=== PATIENT | female | born 1930 | race African-American/Black ===

== ENCOUNTER 2018-11-19 06:30 | Day surgery (SDC) | payer OTHER, MEDICARE ==
[2018-11-14 10:46] LABS: Absolute Lymphocytes (CBC) 1.7 K/uL (0.7-4.9); Absolute Monocytes 0.4 K/uL (0.1-1.3); Absolute Neutrophil 2.8 K/uL (1.8-8.0); Basophils % 1.1 % (0-1.3); Eosinophils % 4.8 % (0-4.4); Hematocrit 38.2 % (36.0-45.0); Lymphocytes % 32.7 % (15.3-44.8); MPV 8.4 fL (7.6-11.3); Monocytes % 7.5 % (3.3-12.3); RBC Red Blood Cell Count 4.63 M/uL (3.86-4.86)
[2018-11-14 10:50] LABS: Protime INR 1.08
[2018-11-14 10:59] LABS: Potassium 4.2 mmol/L (3.5-5.1)
--- NOTE | 2018-11-14 11:51 | EKG ---
Test Date: 2018-11-14 Test Time: 10:43:39 [employer]: NOE MEASUREMENT RESULTS: Intervals: Rate: 51 MN: 178 QRSD: 110 QT: 466 QTc: 429 [place]: P: 44 MN: 178 QRS: -17 T: 0 INTERPRETIVE STATEMENTS: Sinus bradycardia with sinus arrhythmia Minimal voltage criteria for LVH, may be normal variant Borderline ECG Compared to ECG 12/25/2017 06:45:35 No significant changes Electronically Signed On 11-14-18 11:51:07 [employer]ENIOR INFORMATION DEVELOPER by Ebenezer Pritchett
--- OUTSIDE RECORDS SUMMARY | 2018-11-19 06:38 | XMS REPORT | Clinical Summary ---
:1930 Author Organization [facility] Address [address] [place] [address] Care Team Providers Name Role Phone Joey Melendez MD Primary Care Provider Allergies Active Allergy Reactions Severity Noted Date Comments Codeine GI Intolerance Medications Medication Sig Dispensed Refills Start End Status Date Date gabapentin Take 1 capsule 90 capsule 08/20/ Active (NEURONTIN) 100 mg (100 mg total) 2018 capsule by mouth 3 (three) times a day. ondansetron (ZOFRAN) Infuse 2 mL (4 20 mL 0 Active 4 mg/2 mL injection mg total) into a 018 venous catheter every 8 (eight) hours as needed for nausea or vomiting. metoprolol succinate Take 1 tablet 30 tablet 08/21/ Active XL (TOPROL-XL) 50 mg (50 mg total) by 2018 24 hr tablet mouth daily. amLODIPine (NORVASC) Take 1 tablet 30 tablet 08/21/ Active 10 mg tablet (10 mg total) by 2018 mouth daily. donepezil (ARICEPT) 5 Take 1 tablet (5 30 tablet 08/20/ Active MG tablet mg total) by 2018 mouth nightly. glucagon 1 mg/mL Inject 1 mg into 0 Active recon soln the shoulder, 018 thigh, or buttocks every 15 (fifteen) minutes as needed (if no access and low blood sugar). heparin Inject 1 mL 0 Active sodium,porcine (5,000 Units 018 (HEPARIN, PORCINE,) total) under the 5,000 unit/mL skin every 12 injection (twelve) hours. insulin lispro Inject 0-5 Units 10 mL 12 Active (HumaLOG) 100 unit/mL under the skin 3 2018 injection (three) times a day with meals. dextrose 10 % Infuse 40 mL/hr 500 mL 0 Active infusion into a venous 018 catheter continuously as needed (bedside glucose LESS than 70 mg/dL). dextrose 50% syringe Infuse 25 mL 0 Active (12.5 g total) 018 into a venous catheter every 20 (twenty) minutes as needed (If blood glucose is between 41-69 mg/dL). dextrose 50% syringe Infuse 50 mL (25 0 Active g total) into a 018 venous catheter every 20 (twenty) minutes as needed (If blood glucose is 40 mg/dL or LESS). levothyroxine Take 1 tablet 30 tablet Active (SYNTHROID, LEVOXYL) (75 mcg total) 2018 75 mcg tablet by mouth daily. pantoprazole Take 1 tablet 0 Active (PROTONIX) 40 MG EC (40 mg total) by 018 tablet mouth daily. furosemide (LASIX) 20 Take 1 tablet 30 tablet 08/21/ Active mg tablet (20 mg total) by 018 2018 mouth daily. ezetimibe (ZETIA) 10 Take 1 tablet 30 tablet 08/20/ Active mg tablet (10 mg total) by 018 2018 mouth nightly. magnesium hydroxide Take 30 mL by 0 Active 400 mg/5 mL mouth 2 (two) 018 suspension times a day as needed (constipation). clopidogrel (PLAVIX) clopidogrel 75 0 Discontinued 75 mg tablet mg tablet 2017 furosemide (LASIX) 20 furosemide 20 mg 0 08/20/ Discontinued mg tablet tablet 2018 gabapentin gabapentin 100 0 Discontinued (NEURONTIN) 100 mg mg capsule 2018 capsule levothyroxine levothyroxine 75 0 Discontinued (SYNTHROID, LEVOXYL) mcg tablet 2018 75 mcg tablet metoprolol succinate metoprolol 0 Discontinued XL (TOPROL-XL) 50 mg succinate ER 50 2017 24 hr tablet mg tablet,extended release 24 hr pantoprazole pantoprazole 40 0 Discontinued (PROTONIX) 40 MG EC mg 2018 tablet tablet,delayed release traMADol (ULTRAM) 50 tramadol 50 mg tablet 0 08/20/ Discontinued mg tablet Take 1 tablet every 8 hours by oral route for 20 days. 2018 ezetimibe (ZETIA) 10 Zetia 10 mg 0 08/20/ Discontinued mg tablet tablet 2018 aspirin (ECOTRIN) 81 Take 81 mg by 0 08/20/ Discontinued MG enteric coated mouth daily. 2018 tablet amLODIPine (NORVASC) Take 10 mg by 0 08/20/ Discontinued 10 mg tablet mouth daily. 2018 donepezil (ARICEPT) 5 Take 5 mg by 0 08/20/ Discontinued MG tablet mouth nightly. 2018 mirtazapine (REMERON) Take 15 mg by 0 08/20/ Discontinued 15 MG tablet mouth nightly. 2018 mirtazapine (REMERON) Take 1 tablet 30 tablet 0 09/19/ 15 MG tablet (15 mg total) by 2017 mouth nightly for 30 days. acetaminophen Take 2 tablets 0 (TYLENOL) 325 MG (650 mg total) 2017 tablet by mouth every 6 (six) hours as needed for fever (Temperature greater than 101 F) for up to 30 days. acetaminophen Take 2 tablets 240 tablet 0 (TYLENOL) 325 MG (650 mg total) 2017 tablet by mouth 4 (four) times a day for 30 days. traMADol (ULTRAM) 50 Take 1 tablet 0 mg tablet (50 mg total) by 2017 mouth every 8 (eight) hours as needed for moderate pain for up to 30 days. ondansetron ODT Take 1 tablet (4 0 (ZOFRAN-ODT) 4 MG mg total) by 2017 disintegrating tablet mouth every 8 (eight) hours as needed for nausea or vomiting for up to 30 days. methylPREDNISolone follow package 21 tablet 0 08/25/ (MEDROL DOSEPAK) 4 mg directions 2017 tablet bisacodyl (DULCOLAX) Take 1 tablet (5 30 tablet 0 09/19/ 5 mg EC tablet mg total) by 2017 mouth daily as needed for constipation for up to 30 days. cyclobenzaprine Take 1 tablet (5 90 tablet 0 09/19/ (FLEXERIL) 5 mg mg total) by 2017 tablet mouth 3 (three) times a day for 30 days. HYDROcodone-acetamino Take 2 tablets 0 09/04/ phen (NORCO) 10-325 by mouth every 6 2017 mg per tablet (six) hours for 15 days. Max Daily Amount: 8 tablets polyethylene glycol Take 17 g by 60 packet 0 09/19/ (MIRALAX) 17 gram mouth 2 (two) 2017 packet times a day for 30 days. bisacodyl (DULCOLAX) Insert 1 30 suppository 0 09/19/ 10 mg suppository suppository (10 2017 mg total) into the rectum daily for 30 days. Active Problems Problem Noted Date Cervical spondylosis with myelopathy 08/15/2018 Encounters Date Type Specialty Care Team Description 09/16/2018 Office Visit Neurosurgery Santiago Bhatia Cervical spondylosis with myelopathy (Primary Dx) 08/15/2018 Surgery General Surgery Santiago Bhatia CERVICAL LAMINECTOMY CERVICAL 3 - CERVICAL 7 08/15/2018 Anesthesia Event General Surgery Kylah Marquez, ERNST 08/15/2018 - Hospital Encounter Neurosurgery Santiago Bhatia Cervical 08/20/2018 spondylosis with myelopathy 08/07/2018 Hospital Encounter Radiology Santiago Bhatia Cervical spondylosis with myelopathy 08/07/2018 Pre-Admit Testing Pre-Admission Santiago Bhtaia Appointment Testing 07/29/2018 Hospital Encounter Radiology Santiago Bhatia MD 07/29/2018 Office Visit Neurosurgery Santiago Bhatia Cervical spondylosis with myelopathy (Primary Dx) 06/19/2018 Telephone Neurosurgery Linus Casarez MD after 11/18/2017 Immunizations Name Dates Previously Given Next Due FLUCELVAX QUAD PF (0.5mL syringe) 08/17/2018 Family History Medical History Relation Name Comments Cancer Brother Diabetes Neg Hx Relation Name Status Comments Brother Social History Tobacco Use Types Packs/Day Years Used Date Never Smoker Smokeless Tobacco: Never Used Alcohol Use Drinks/Week oz/Week Comments No Sex Assigned at Date Recorded Not on file Job Start Date Occupation Industry Not on file Not on file Not on file Travel History Travel Start Travel End No recent travel history available. Last Filed Vital Signs Vital Sign Reading Time Taken Blood Pressure 156/76 08/20/2018 12:09 PM CDT Pulse 70 08/20/2018 12:09 PM CDT Temperature 37.1 C (98.8 F) 08/20/2018 12:09 PM CDT Respiratory Rate 18 08/20/2018 12:09 PM CDT Oxygen Saturation 94% 08/20/2018 1:09 PM CDT Inhaled Oxygen Concentration - - Weight 98 kg (216 lb) 08/15/2018 6:24 AM CDT Height 167.6 cm (5' 6") 08/15/2018 6:24 AM CDT Body Mass Index 34.86 08/15/2018 6:24 AM CDT Plan of Treatment Date Type Specialty Care Team Description 12/19/2018 Office Visit Neurosurgery Santiago Bhatia MD [address] [facility] [address] [place] [address] Health Maintenance Due Date Last Done Comments SHINGLES VACCINES (1 of 2) 1982 PNEUMOCOCCAL POLYSACCHARIDE VACCINE AGE 65 AND OVER 1997 PNEUMOCOCCAL-13 1997 INFLUENZA VACCINE Completed 08/17/2018 Procedures Procedure Name Priority Date/Time Associated Comments Diagnosis POC GLUCOSE Routine 08/20/2018 12:06 Results for this PM CDT procedure are in the results section. POC GLUCOSE Routine 08/20/2018 8:28 Results for this AM CDT procedure are in the results section. POC GLUCOSE Routine 08/19/2018 9:59 Results for this PM CDT procedure are in the results section. POC GLUCOSE Routine 08/19/2018 5:05 Results for this PM CDT procedure are in the results section. POC GLUCOSE Routine 08/19/2018 11:59 Results for this AM CDT procedure are in the results section. POC GLUCOSE Routine 08/19/2018 8:07 Results for this AM CDT procedure are in the results section. ESTIMATED GFR Routine 08/19/2018 4:20 Results for this AM CDT procedure are in the results section. BASIC METABOLIC PANEL Routine 08/19/2018 4:20 Results for this AM CDT procedure are in the results section. POC GLUCOSE Routine 08/18/2018 8:22 Results for this PM CDT procedure are in the results section. POC GLUCOSE Routine 08/18/2018 4:28 Results for this PM CDT procedure are in the results section. HC COMPLETE BLD COUNT STAT 08/18/2018 9:18 Results for this W/AUTO DIFF AM CDT procedure are in the results section. POC GLUCOSE Routine 08/18/2018 8:33 Results for this AM CDT procedure are in the results section. POC GLUCOSE Routine 08/17/2018 9:02 Results for this PM CDT procedure are in the results section. POC GLUCOSE Routine 08/17/2018 4:42 Results for this PM CDT procedure are in the results section. POC GLUCOSE Routine 08/17/2018 11:55 Results for this AM CDT procedure are in the results section. POC GLUCOSE Routine 08/17/2018 8:04 Results for this AM CDT procedure are in the results section. VITAMIN D 25 HYDROXY Routine 08/17/2018 4:00 Results for this LEVEL AM CDT procedure are in the results section. ESTIMATED GFR Routine 08/17/2018 3:45 Results for this AM CDT procedure are in the results section. FERRITIN LEVEL Routine 08/17/2018 3:45 Results for this AM CDT procedure are in the results section. VITAMIN B12 LEVEL Routine 08/17/2018 3:45 Results for this AM CDT procedure are in the results section. HOMOCYSTINE, PLASMA Routine 08/17/2018 3:45 Results for this AM CDT procedure are in the results section. THYROID STIMULATING Routine 08/17/2018 3:45 Results for this HORMONE AM CDT procedure are in the results section. LIPID PANEL Routine 08/17/2018 3:45 Results for this AM CDT procedure are in the results section. PHOSPHORUS LEVEL Routine 08/17/2018 3:45 Results for this AM CDT procedure are in the results section. MAGNESIUM LEVEL Routine 08/17/2018 3:45 Results for this AM CDT procedure are in the results section. BASIC METABOLIC PANEL Routine 08/17/2018 3:45 Results for this AM CDT procedure are in the results section. HEMOGLOBIN A1C Routine 08/17/2018 3:30 Results for this AM CDT procedure are in the results section. HC COMPLETE BLD COUNT Routine 08/17/2018 3:30 Results for this W/AUTO DIFF AM CDT procedure are in the results section. URINALYSIS, AUTOMATED STAT 08/16/2018 9:15 Results for this WITH MICROSCOPY PM CDT procedure are in the results section. POC GLUCOSE Routine 08/16/2018 9:02 Results for this PM CDT procedure are in the results section. POC GLUCOSE Routine 08/16/2018 4:39 Results for this PM CDT procedure are in the results section. POC GLUCOSE Routine 08/16/2018 11:47 Results for this AM CDT procedure are in the results section. POC GLUCOSE Routine 08/16/2018 8:40 Results for this AM CDT procedure are in the results section. POC GLUCOSE Routine 08/15/2018 5:17 Results for this PM CDT procedure are in the results section. SURGICAL PATHOLOGY Routine 08/15/2018 12:20 Results for this REQUEST PM CDT procedure are in the results section. POC GLUCOSE Routine 08/15/2018 11:05 Results for this AM CDT procedure are in the results section. XR CERVICAL SPINE 1 Routine 08/15/2018 9:47 Results for this VW AM CDT procedure are in the results section. ARTERIAL LINE Routine 08/15/2018 9:34 AM CDT Procedure Note - Feliciano Bradley MD - 08/15/2018 9:34 AM CDT Arterial line Performed by: FELICIANO BRADLEY Authorized by: FELICIANO BRADLEY Patient Location: OR Start Time: 08/15/2018 7:45 AM End Time: 08/15/2018 8:06 AM Staff: Performed by: Anesthesiologist Pre-procedure: patient identified, IV checked, site and side verified, risks and benefits discussed, procedure verified, surgical consent complete, patient position confirmed, monitors and equipment checked and pre-op evaluation complete MSBT: antiseptic used and hand hygiene performed TIme Out Performed: 08/15/2018 7:31 AM Indications: Indications: hemodynamic monitoring Anesthesia: Anesthesia: General Procedure Details: Arterial Line placement: Placed post induction Line placement site: Radial Line placement side: Left Arterial line gauge: 20 G Number of attempts: 2 (R attempted) Ultrasound guidance used: Yes Post-procedure: Post-procedure: Sterile dressing applied (CHG) Patient tolerance: Patient tolerated the procedure well with no immediate complications UT AN ELECTIVE ENDOTRACHEAL AIRWAY Routine 08/15/2018 9:32 AM CDT Procedure Note - Feliciano Bradley MD - 08/15/2018 9:32 AM CDT Airway Date/Time: 08/15/2018 7:37 AM Performed by: FELICIANO BRADLEY Authorized by: FELICIANO BRADLEY Location: OR Urgency: Elective Difficult Airway: No Performed by: anesthesiologist Preoxygenated with 100% O2: Yes Mask Ventilation: Easy mask Final Airway Type: Endotracheal airway Final Endotracheal Airway: ETT Technique Used: Direct laryngoscopy Devices/Methods Used in Placement: Intubating stylet Insertion Site: Oral Blade Type: Morrissey Laryngoscope Blade/Videolaryngoscope Blade Size: 3 ETT Size (mm): 7.0 Measured from: Lips ETT to Lips (cm): 23 Placement Verified by: CO2 detection and direct visualization Laryngoscopic view: Grade I - full view of glottis Rapid Sequence Induction (RSI): No Number of Attempts at Approach: 1 No neck extension for intubation LAMINECTOMY, CERVICAL, 08/15/2018 7:30 AM CDT Cervical spondylosis with POSTERIOR APPROACH myelopathy Case Notes PRONE POSITION, 3.5 HRS, POSSIBLE EXTENDED RECOVERY NEEDED, LEVO POSITIONING DEVICE Special Needs PRONE POSITION, 3.5 HRS, POSSIBLE EXTENDED RECOVERY NEEDED, LEVO POSITIONING DEVICE XR CERVICAL SPINE Routine 08/07/2018 11:59 AM Cervical spondylosis Results for this COMPLETE W FLEX CDT with myelopathy procedure are in EXT the results section. MRI SPINE EXTERNAL Routine 12/25/2017 7:29 AM Results for this STUD[employer]MER procedure are in the results section. after 11/18/2017 Results POC glucose (08/20/2018 12:06 PM CDT)Only the most recent of19 resultswithin the time period is included. POC glucose 97 65 - 99 mg/dL [facility] DEPARTMENT OF PATHOLOGY AND Comment: [employer] [facility] Notified RN Meter ID: [id number] Food Porter: Uzair Morgan Performing Organization Address City/State/Zipcode Phone Number [facility] DEPARTMENT OF PATHOLOGY AND [address] [place] [address] [employer] Estimated GFR (08/19/2018 4:20 AM CDT)Only the most recent of2 resultswithin the time period is included. Estimated GFR 66 mL/min/1.73 m2 [facility] DEPARTMENT OF Comment: PATHOLOGY AND GENOMIC CatergoryUnitsInterpretation MEDICINE G1 >=90 Normal or high G2 60-89Mildly decreased [id number] to moderately decreased [id number] to severely decreased G4 15-29Severely decreased G5 <15Kidney failure The eGFR was calculated using the Chronic Kidney Disease Epidemiology Collaboration (CKD-EPI) equation. Interpretation is based on recommendations of the National Kidney Foundation-Kidney Disease Outcomes Quality Initiative (NKF-KDOQI) published in 2014. Specimen Plasma specimen Performing Organization Address City/[facility] Phone Number [facility] OF PATHOLOGY AND [address] [place] [address] Basic metabolic panel (08/19/2018 4:20 AM CDT)Only the most recent of2 resultswithin the time period is included. Sodium 138 135 - 148 mEq/L [facility] DEPARTMENT OF PATHOLOGY AND GENOMIC MEDICINE Potassium 4.3 3.5 - 5.0 mEq/L [facility] DEPARTMENT OF PATHOLOGY AND GENOMIC MEDICINE Chloride 100 98 - 112 mEq/L [facility] DEPARTMENT OF PATHOLOGY AND GENOMIC MEDICINE CO2 29 24 - 31 mEq/L [facility] DEPARTMENT OF PATHOLOGY AND GENOMIC MEDICINE Anion gap 9@ANIO 7 - 15 mEq/L [facility] DEPARTMENT OF PATHOLOGY AND GENOMIC MEDICINE BUN 25 (H) 8 - 23 mg/dL [facility] DEPARTMENT OF PATHOLOGY AND GENOMIC MEDICINE Creatinine 0.91 (H) 0.50 - 0.90 mg/dL [facility] DEPARTMENT OF PATHOLOGY AND GENOMIC MEDICINE Glucose 152 (H) 65 - 99 mg/dL [facility] DEPARTMENT OF PATHOLOGY AND GENOMIC MEDICINE Calcium 8.6 (L) 8.8 - 10.2 mg/dL [facility] DEPARTMENT OF PATHOLOGY AND GENOMIC MEDICINE Specimen Plasma specimen Performing Organization Address City/[facility] Phone Number [facility] DEPARTMENT OF PATHOLOGY AND [address] [place], [place] [id number] [facility] CBC with platelet and differential (08/18/2018 9:18 AM CDT)Only the most recent of2 resultswithin the time period is included. WBC 14.23 (H) 4.50 - 11.00 k/uL [facility] DEPARTMENT OF PATHOLOGY AND GENOMIC MEDICINE RBC 4.27 4.20 - 5.50 m/uL [facility] DEPARTMENT OF PATHOLOGY AND GENOMIC MEDICINE HGB 11.2 (L) 12.0 - 16.0 g/dL [facility] DEPARTMENT OF PATHOLOGY AND GENOMIC MEDICINE HCT 36.1 (L) 37.0 - 47.0 % [facility] DEPARTMENT OF PATHOLOGY AND GENOMIC MEDICINE MCV 84.5 82.0 - 100.0 fL [facility] DEPARTMENT OF PATHOLOGY AND GENOMIC MEDICINE MCH 26.2 (L) 27.0 - 34.0 pg [facility] DEPARTMENT OF PATHOLOGY AND GENOMIC MEDICINE MCHC 31.0 31.0 - 37.0 g/dL [facility] DEPARTMENT OF PATHOLOGY AND GENOMIC MEDICINE RDW - SD 40.6 37.0 - 55.0 fL [facility] DEPARTMENT OF PATHOLOGY AND GENOMIC MEDICINE MPV 10.2 8.8 - 13.2 fL [facility] DEPARTMENT OF PATHOLOGY AND GENOMIC MEDICINE Platelet count 231 150 - 400 k/uL [facility] DEPARTMENT OF PATHOLOGY AND GENOMIC MEDICINE Nucleated RBC 0.00 /100 WBC [facility] DEPARTMENT OF PATHOLOGY AND GENOMIC MEDICINE Neutrophils 81.5 (H) 39.0 - 69.0 % [facility] DEPARTMENT OF PATHOLOGY AND GENOMIC MEDICINE Lymphocytes 10.0 (L) 25.0 - 45.0 % [facility] DEPARTMENT OF PATHOLOGY AND GENOMIC MEDICINE Monocytes 7.2 0.0 - 10.0 % [facility] DEPARTMENT OF PATHOLOGY AND GENOMIC MEDICINE Eosinophils 0.1 0.0 - 5.0 % [facility] DEPARTMENT OF PATHOLOGY AND GENOMIC MEDICINE Basophils 0.2 0.0 - 1.0 % [facility] DEPARTMENT OF PATHOLOGY AND GENOMIC MEDICINE Immature granulocytes 1.0Comment: 0.0 - 1.0 % [facility] DEPARTMENT OF "Immature PATHOLOGY AND GENOMIC granulocytes" MEDICINE (promyelocytes, myelocytes, metamyelocytes) Specimen Blood Performing Organization Address City/State/Zipcode Phone Number [facility] DEPARTMENT OF PATHOLOGY AND [address] [place] [address] [employer] Vitamin D 25 hydroxy level (08/17/2018 4:00 AM CDT) Vitamin D, 25-hydroxy 30.7 30.0 - 150.0 [facility] DEPARTMENT OF Comment: ng/mL PATHOLOGY AND GENOMIC This assay reports the sum of 25-hydroxy vitamin D3 and 25-hydroxy vitamin MEDICINE D2. Reference range: 0-17 years: Deficiency: less than 20ng/mL Optimum level: greater than or equal to 20 ng/mL. 18 years and older: Deficiency: less than 20ng/mL Insufficiency: 20-29 ng/mL Optimum Level: 30-80 ng/mL The assay reportable range is 3.4155.9 ng/mL. Levels higher than 150 ng/mL may be associated with toxicity. If toxicity is clinically suspected and the reported result is >155.9 ng/mL,contact lab for alternative methods to obtain a definitivelevel. If separate quantitation of 25-hydroxy vitamin D3 and 25-hydroxy vitamin D2 is needed, please contact lab for alternative methods. Specimen Blood Performing Organization Address [facility] Phone Number [facility] DEPARTMENT OF PATHOLOGY AND [address] [place] [address] Homocystine, plasma (08/17/2018 3:45 AM CDT) Homocysteine 9.6 0.0 - 15.0 umol/L [facility] DEPARTMENT OF Comment: PATHOLOGY AND GENOMIC The risk for coronary vascular disease increases progressively MEDICINE with homocysteine concentration.A 3.4 times greater risk is associated with a homocysteine concentration of greater than 15.8 umol/L as compared to a concentration below 14.1 umol/L. Specimen Plasma specimen Performing Organization Address [facility] Phone Number [facility] DEPARTMENT OF PATHOLOGY AND [address] [place] [address] Thyroid stimulating hormone (08/17/2018 3:45 AM CDT) TSH 0.81 0.27 - 4.20 uIU/mL [facility] DEPARTMENT OF PATHOLOGY AND GENOMIC MEDICINE Specimen Plasma specimen Performing Organization Address [facility] Phone Number [facility] DEPARTMENT OF PATHOLOGY AND [address] [place], [place] [id number] [facility] Phosphorus level (08/17/2018 3:45 AM CDT) Phosphorus 3.4 2.4 - 4.5 mg/dL [facility] DEPARTMENT OF PATHOLOGY AND GENOMIC MEDICINE Specimen Plasma specimen Performing Organization Address [facility] Phone Number [facility] DEPARTMENT OF PATHOLOGY AND [address] [place], [place] [id number] [facility] Magnesium level (08/17/2018 3:45 AM CDT) Magnesium 2.3 1.6 - 2.4 mg/dL [facility] DEPARTMENT OF PATHOLOGY AND GENOMIC MEDICINE Specimen Plasma specimen Performing Organization Address [facility] Phone Number [facility] DEPARTMENT OF PATHOLOGY AND [address] [place] [address] Ferritin level (08/17/2018 3:45 AM CDT) Ferritin level 212 (H) 13 - 150 ng/mL [facility] DEPARTMENT OF PATHOLOGY AND GENOMIC MEDICINE Specimen Plasma specimen Performing Organization Address [facility]/Zipcode Phone Number [facility] DEPARTMENT OF PATHOLOGY AND [address] [place] [address], [place] [address] [facility] Vitamin B12 level (08/17/2018 3:45 AM CDT) Vitamin B12 1,058 (H) 211 - 946 pg/mL [facility] DEPARTMENT OF PATHOLOGY Comment: AND GENOMIC MEDICINE Significant overlap exists between normal and deficiency states. However, most patients with deficiencies will have Serum B12 <200 pg/mL. Specimen Serum Performing Organization Address City/[facility] Phone Number [facility] DEPARTMENT OF PATHOLOGY AND [address] [place] [address] [facility] Lipid panel (08/17/2018 3:45 AM CDT) Cholesterol 196 <200 mg/dL [facility] DEPARTMENT OF PATHOLOGY AND GENOMIC MEDICINE Triglycerides 107 <150 mg/dL [facility] DEPARTMENT OF PATHOLOGY AND GENOMIC MEDICINE HDL cholesterol 83 >40 mg/dL [facility] DEPARTMENT OF PATHOLOGY AND GENOMIC MEDICINE LDL cholesterol 112 (H)Comment: Result <100 mg/dL [facility] DEPARTMENT obtained by direct LDL PATHOLOGY AND GENOMIC measurement MEDICINE Lipid panel interpretation SeeBelow [facility] DEPARTMENT OF Comment: PATHOLOGY AND GENOMIC Total Cholesterol (mg/dL) MEDICINE <200 Desirable 585-670Mnzjohfjgr-tyrs >=240High Triglycerides (mg/dL) <150 Normal [id number]-bpru 200-499High >=500Very high HDL Cholesterol (mg/dL) <40Low (male) <40Low (female) LDL Cholesterol (mg/dL) <100 Optimal 100-129Near or above optimal 612-276Rrbnnsdqnt-kcru 160-189High >=190Very high Risk Catergories that modify LDL goals. Risk CatergoriesLDL goal (mg/dL) CHD and CHD risk equivalent<100 (10-year risk >20%) Multiple (2+) risk factors <130 (10-year risk=<20%) 0-1 risk factors <160 (<10-year risk) Defining levels of lipids in metabolic syndrome Triglycerides>=150 mg/dL HDL Cholesterol Men<40 mg/dL Women<40 mg/dL Non-HDL cholesterol is a second target for therapy in persons with high triglycerides (>=200 mg/dL) Specimen Plasma specimen Performing Organization Address City/[facility]/Zipcode Phone Number [facility] DEPARTMENT OF PATHOLOGY AND [address] [place] [address] [facility] Hemoglobin A1c (08/17/2018 3:30 AM CDT) Hemoglobin A1C 5.8 (H) 4.0 - 5.6 % [facility] DEPARTMENT OF Comment: PATHOLOGY AND GENOMIC HbA1c cutoffs for diagnosing diabetes: MEDICINE 4.0% - 5.6%=normal 5.7% - 6.4%=increased risk for diabetes (prediabetes) >=6.5%=diabetes Goals for glycemic control (ADA 2016) < 7.0%Target for non adults with diabetes. More or less stringent targets may be appropriate for individual patients. <7.5% Target for Children and adolescents with type 1 diabetes. A hemoglobin variant peak was detected in the A1c HPLC study. This peak did not seem to interfere with the A1c percentage calculation. However, if clinically indicated, hemoglobin electrophoresis should be ordered to further evaluate this finding. This variant may impact the red blood cell turnover rate. The clinical utility of Hemoglobin A1c measurement for monitoring long-term glucose control in the setting of hemoglobin variants has not been well characterized. Specimen Blood Performing Organization Address City/State/Zipcode Phone Number [facility] DEPARTMENT OF PATHOLOGY [id number] [place] [address] [employer] Urinalysis, automated with microscopy (08/16/2018 9:15 PM CDT) Color, UA Straw [facility] DEPARTMENT OF PATHOLOGY AND GENOMIC MEDICINE Appearance, UA Clear [facility] DEPARTMENT OF PATHOLOGY AND GENOMIC MEDICINE Specific gravity, UA 1.013 1.001 - 1.035 [facility] DEPARTMENT OF PATHOLOGY AND GENOMIC MEDICINE pH, UA 5.0 5.0 - 8.5 [facility] DEPARTMENT OF PATHOLOGY AND GENOMIC MEDICINE Protein, UA Negative Negative [facility] DEPARTMENT OF PATHOLOGY AND GENOMIC MEDICINE Glucose, UA Negative Negative [facility] DEPARTMENT OF PATHOLOGY AND GENOMIC MEDICINE Ketones, UA Negative Negative [facility] DEPARTMENT OF PATHOLOGY AND GENOMIC MEDICINE Bilirubin, UA Negative Negative [facility] DEPARTMENT OF PATHOLOGY AND GENOMIC MEDICINE Blood, UA Negative Negative [facility] DEPARTMENT OF PATHOLOGY AND GENOMIC MEDICINE Nitrite, UA Negative Negative [facility] DEPARTMENT OF PATHOLOGY AND GENOMIC MEDICINE Urobilinogen, UA <2.0 <2.0 [facility] DEPARTMENT OF PATHOLOGY AND GENOMIC MEDICINE Leukocyte esterase, UA Negative Negative [facility] DEPARTMENT OF PATHOLOGY AND GENOMIC MEDICINE Epithelial cells, UA 2 /HPF [facility] DEPARTMENT OF PATHOLOGY AND GENOMIC MEDICINE WBC, UA <1 0 - 4 /HPF [facility] DEPARTMENT OF PATHOLOGY AND GENOMIC MEDICINE RBC, UA <1 0 - 5 /HPF [facility] DEPARTMENT OF PATHOLOGY AND GENOMIC MEDICINE Bacteria, UA None seen None seen [facility] DEPARTMENT OF PATHOLOGY AND GENOMIC MEDICINE Hyaline casts, UA 4 /LPF [facility] DEPARTMENT OF PATHOLOGY AND GENOMIC MEDICINE Yeast, UA None seen [facility] DEPARTMENT OF PATHOLOGY AND GENOMIC MEDICINE Yeast with pseudohyphae, UA None seen [facility] DEPARTMENT OF PATHOLOGY AND GENOMIC MEDICINE Specimen Urine Performing Organization Address City/[facility] Phone Number [facility] DEPARTMENT OF PATHOLOGY AND [address] [place] [phone] GENOMIC MEDICINE Surgical pathology request (08/15/2018 12:20 PM CDT) [facility] DEPARTMENT OF PATHOLOGY AND GENOMIC MEDICINE Surgical pathology report See link below for PDF [facility] DEPARTMENT OF Lab Report PATHOLOGY AND GENOMIC MEDICINE Result status This is Final Report [facility] DEPARTMENT OF for [id number] PATHOLOGY AND GENOMIC MEDICINE Performing Organization Address [facility] Phone Number [facility] DEPARTMENT OF PATHOLOGY AND [address] [place] [phone] GENOMIC MEDICINE XR Cervical Spine 1 Vw (08/15/2018 9:47 AM CDT) Narrative Performed At EXAMINATION: XR CERVICAL SPINE 1 VW [facility] CLINICAL HISTORY: Cervical region neck pain and radiculopathy COMPARISON:None FINDINGS: There are radiopaque instruments in the posterior paraspinal soft tissues overlapping the posterior elements from the C2 level down to the C6 level. One instrument tip overlaps the posterior C2 spinous process region. There are degenerative changes in the cervical spine. There is a tube within the oropharynx extending downwards. There are multiple radiopaque wires and leads. IMPRESSION: Lateral portable crosstable intraoperative radiograph of the cervical spine for localization during cervical spine surgery. [id number] Procedure Note Hm Interface, Radiology Results Incoming - 08/15/2018 10:18 AM CDT EXAMINATION: XR CERVICAL SPINE 1 VW CLINICAL HISTORY: Cervical region neck pain and radiculopathy COMPARISON: None FINDINGS: There are radiopaque instruments in the posterior paraspinal soft tissues overlapping the posterior elements from the C2 level down to the C6 level. One instrument tip overlaps the posterior C2 spinous process region. There are degenerative changes in the cervical spine. There is a tube within the oropharynx extending downwards. There are multiple radiopaque wires and leads. IMPRESSION: Lateral portable crosstable intraoperative radiograph of the cervical spine for localization during cervical spine surgery. 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 IMPRESSION: 7 views provided. C1-C7 vertebrae visualized. The alignment is within normal limits. No subluxation. Moderate intervertebral disc height loss at C4-C5 and C5-C6 with marginal endplate osteophytes. Remaining intervertebral disc heights and vertebral body heights are preserved. No prevertebral soft tissue swelling. Mild bilateral neural foraminal narrowing at C4-C5 and C5-C6 secondary to degenerative uncovertebral hypertrophy. Patient is edentulous. No prevertebral soft tissue swelling. 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 IMPRESSION: 7 views provided. C1-C7 vertebrae visualized. The alignment is within normal limits. No subluxation. Moderate intervertebral disc height loss at C4-C5 and C5-C6 with marginal endplate osteophytes. Remaining intervertebral disc heights and vertebral body heights are preserved. No prevertebral soft tissue swelling. Mild bilateral neural foraminal narrowing at C4-C5 and C5-C6 secondary to degenerative uncovertebral hypertrophy. Patient is edentulous. No prevertebral soft tissue swelling. [facility]-[id number] Performing Organization Address [facility]/Zipcode Phone Number [facility] [address] [place] [address] MRI Spine External Study (12/25/2017 7:29 AM PAVING RAMMER) Narrative Performed At This exam was not acquired at a [facility] facility and has not been [facility] interpreted by a [facility] Provider.The exam was imported into our imaging system for comparisons purposes. Performing Organization Address City/[facility]/Zipcode Phone Number [facility] [address] [place] [address] after 11/18/2017 Insurance Payer Benefit Plan / Group Subscriber ID Type Phone Address MEDICARE MEDICARE PART A AND B xxxxxxxxxxx Medicare [place], [place] AARP AARP SUPPLEMENT xxxxxxxxx Commercial Advance Directives Patient has advance care planning documents on file. For more information, please contact:Beka Overton[address] [place] [address]
[2018-11-19] MEDS ORDERED: NA CHLORIDE 0.9% 500 ML ONE (06:53)
[2018-11-19 07:09] LABS: Protime INR 1.09
[2018-11-19] MEDS ORDERED: LIDOCAINE 1% MPF 5 ML VIAL ONE (07:09)
[2018-11-19] MEDS ORDERED: FENTANYL CITR 100 MCG/2 ML ONE (07:09)
[2018-11-19] MEDS ORDERED: HEPA 1000U/500MLS 1,000 UNIT/500 ML BAG IV ONE (07:09)
[2018-11-19] MEDS ORDERED: MIDAZOLAM HCL 2 MG/2 ML INJ ONE (07:09)
--- NOTE | 2018-11-19 08:50 | OP ---
Surgeon: Ebenezer Pritchett MD Payment Collector: Jonny Roberts. The patient was admitted to my service as an outpatient on 11/19/2018. Procedure: The patient had a left heart catheterization with selective coronary arteriogram. Indication: Abnormal stress test and unstable angina. Ms. Carrillo is 88, has had a history of CVA before. Has hypertension, dyslipidemia. Description Of Procedure: She was brought into the quality lab technician as an outpatient, prepped and draped in the routine sterile fashion, given 1 mg of Versed for sedation. A 6-Telugu sheath introduced in the right common femoral artery. Angiogram there was normal. Angio-Seal was used to close the case. Ju dkins catheters 6-Telugu were used to inject the left main and the right main respectively. She was found to have very large coronaries, very tortuous coronaries with [id number]-[id number] plaquing throug hout all the vessels, but no focal stenosis. There were no complications. Blood Loss: 5 cc. Postoperative Diagnosis: [id number] coronary artery disease. Plan: Plan is for medical therapy. Total Conscious Sedation: 30 minutes. FLEX/ENIO Voice ID: [id number] Report ID: [id number]
[2018-11-19 09:08] VITALS: TEMP 98
[2018-11-19 09:33] VITALS: BP 150/61; O2SAT 97
== END 2018-11-19 09:35 | disposition home or self-care (01) ==
LOC: CCL 06:30
DX: I25.110 Atherosclerotic heart disease of native coronary artery with unstable angina pectoris (principal); I10 Essential (primary) hypertension; E78.5 Hyperlipidemia, unspecified; Z86.73 Personal history of transient ischemic attack (TIA), and cerebral infarction without residual deficits
CPT/HCPCS: 36415 ×2; 80048; 85025; 85610 ×2; 85730 ×2; 93005; 93454; C1760; C1893; J2250; J3010

== ENCOUNTER 2019-03-08 09:22 | Emergency (ER) | payer OTHER, MEDICARE ==
--- OUTSIDE RECORDS SUMMARY | 2019-03-08 09:25 | XMS REPORT | Clinical Summary ---
:1930 Author Organization [facility] Address [address] [place] [address] Care Team Providers Name Role Phone Joey Melendez MD Primary Care Provider Allergies Active Allergy Reactions Severity Noted Date Comments Codeine GI Intolerance Medications Medication Sig Dispensed Refills Start End Status Date Date ondansetron (ZOFRAN) Infuse 2 mL (4 20 [...] insulin lispro Inject 0-5 Units 10 mL 08/20/ Active (HumaLOG) 100 unit/mL under the skin [...] LESS). levothyroxine Take 1 tablet 30 tablet 11 08/21/ Active (SYNTHROID, LEVOXYL) (75 mcg total) 2018 [...] suspension times a day as needed (constipation). gabapentin Take 1 capsule 180 capsule 0 2 03/26/ Active (NEURONTIN) 300 mg (300 mg total) 2018 capsule by mouth 2 (two) times a day for 90 days. diclofenac (VOLTAREN) Apply topically 1 Tube 3 2 03/26/ Active 1 % gel 2 (two) times a 2018 day as needed (pain and stiffness) for up to 90 days. clopidogrel (PLAVIX) clopidogrel 75 0 08/20/ Discontinued 75 mg tablet mg tablet 2018 furosemide (LASIX) 20 furosemide 20 mg 0 08/20/ Discontinued mg tablet tablet 2018 gabapentin gabapentin 100 0 Discontinued (NEURONTIN) 100 mg mg capsule 2018 capsule levothyroxine levothyroxine 75 0 08/20/ Discontinued (SYNTHROID, LEVOXYL) mcg tablet 2018 75 mcg tablet metoprolol succinate metoprolol 0 08/20/ Discontinued XL (TOPROL-XL) 50 mg succinate ER 50 2018 24 hr tablet mg tablet,extended release 24 hr pantoprazole pantoprazole 40 0 08/20/ Discontinued (PROTONIX) 40 MG EC mg 2018 tablet tablet,delayed release traMADol (ULTRAM) 50 tramadol 50 mg tablet 0 08/20/ Discontinued mg tablet Take 1 tablet every 8 hours by oral route for 20 days. 2017 ezetimibe (ZETIA) 10 Zetia 10 mg 0 [...] acetaminophen Take 2 tablets 240 tablet 0 2 09/19/ (TYLENOL) 325 MG (650 mg total) 2017 tablet by mouth 4 (four) times a day for 30 days. traMADol (ULTRAM) 50 Take 1 tablet 0 09/19/ mg tablet (50 mg total) by 2017 mouth every 8 (eight) hours as needed for moderate pain for up to 30 days. gabapentin Take 1 capsule 90 capsule 11 12/26/ Discontinued (NEURONTIN) 100 mg (100 mg total) 2018 capsule by mouth 3 (three) times a day. ondansetron ODT Take 1 tablet (4 0 (ZOFRAN-ODT) 4 MG mg total) by 2017 disintegrating tablet mouth every 8 (eight) hours as needed for nausea or vomiting for up to 30 days. methylPREDNISolone follow package 21 tablet 0 (MEDROL DOSEPAK) 4 mg directions 2017 tablet bisacodyl (DULCOLAX) Take 1 tablet (5 30 tablet 0 2 09/19/ 5 mg EC tablet mg total) [...] Encounters Date Type Specialty Care Team Description 12/26/2018 Office Visit Neurosurgery Santiago Bhatia Cervical spondylosis with myelopathy (Primary Dx) 09/16/2018 Office Visit Neurosurgery Santiago Bhatia, Cervical spondylosis with myelopathy (Primary Dx) 08/15/2018 Surgery General Surgery Santiago Bhatia, CERVICAL LAMINECTOMY CERVICAL 3 - CERVICAL 7 08/15/2018 Anesthesia Event General Surgery Kylah Marquez, ERNST 08/15/2018 - Hospital Encounter Neurosurgery Santiago Bhatia, Cervical 08/20/2018 spondylosis with myelopathy 08/07/2018 Hospital Encounter Radiology Santiago Bhatia, Cervical spondylosis with myelopathy 08/07/2018 Pre-Admit Testing Pre-Admission Santiago Bhatia Appointment Testing 07/29/2018 Hospital Encounter Radiology Santiago Bhatia MD 07/29/2018 Office Visit Neurosurgery Santiago Bhatia Cervical MD spondylosis with myelopathy (Primary Dx) 06/19/2018 Telephone Neurosurgery Linus Casarez MD after 03/07/2018 Immunizations Name Dates Previously Given Next Due [...] 08/15/2018 6:24 AM CDT Plan of Treatment Health Maintenance Due Date Last Done Comments SHINGLES VACCINES (#1) 1982 65+ PNEUMOCOCCAL VACCINE (1 of 2 - PCV13) 1997 PNEUMOCOCCAL POLYSACCHARIDE VACCINE AGE 65 AND OVER 1997 INFLUENZA VACCINE 05/21/2019 08/17/2018 Procedures Procedure Name Priority Date/Time Associated [...] the procedure well with no immediate complications IN AN ELECTIVE ENDOTRACHEAL AIRWAY Routine 08/15/2018 9:32 [...] procedure are in EXT the results section. after 03/07/2018 Results POC glucose (08/20/2018 12:06 PM CDT)Only the most recent of19 resultswithin the time period is included. POC glucose 97 65 - 99 mg/dL [facility] DEPARTMENT OF Comment: PATHOLOGY AND [facility] Notified RN GENOMIC MEDICINE Meter ID: [id number] Manager Federal: Uzair Morgan Specimen Performing Organization Address City/State/Zipcode Phone Number [facility] DEPARTMENT OF PATHOLOGY AND [address] [place] [phone] [facility]ICINE Estimated GFR (08/19/2018 4:20 AM CDT)Only the most recent of2 resultswithin the time period is included. Estimated GFR 66 mL/min/1.73 [facility] DEPARTMENT OF Comment: m2 PATHOLOGY AND CatergoryUnitsInterpretation GENOMIC MEDICINE G1 >=90 Normal or high G2 60-89Mildly decreased [id number] to moderately decreased [id number] to severely decreased G4 15-29Severely decreased G5 <15Kidney failure The eGFR was calculated using the Chronic Kidney Disease Epidemiology Collaboration (CKD-EPI) equation. Interpretation is based on recommendations of the National Kidney Foundation-Kidney Disease Outcomes Quality Initiative (NKF-KDOQI) published in 2014. Specimen Plasma specimen Performing Organization Address City/State/Zipcode Phone Number [facility] DEPARTMENT OF PATHOLOGY AND [address] [place] [phone] [facility] Basic metabolic panel (08/19/2018 4:20 AM CDT)Only the most recent of2 resultswithin the time period is included. Pathologist [facility] Sodium 138 135 - 148 mEq/L [facility] DEPARTMENT OF PATHOLOGY AND GENOMIC MEDICINE Potassium 4.3 3.5 - 5.0 mEq/L [facility] DEPARTMENT OF PATHOLOGY AND GENOMIC MEDICINE Chloride 100 98 - 112 mEq/L [facility] DEPARTMENT OF PATHOLOGY AND GENOMIC MEDICINE CO2 29 24 - 31 mEq/L [facility] DEPARTMENT OF PATHOLOGY AND GENOMIC MEDICINE Anion gap 9@ANIO 7 - 15 mEq/L [facility] DEPARTMENT OF PATHOLOGY AND GENOMIC MEDICINE BUN 25 (H) 8 - 23 mg/dL [facility] DEPARTMENT OF PATHOLOGY AND GENOMIC MEDICINE Creatinine 0.91 (H) 0.50 - 0.90 mg/dL [facility] DEPARTMENT OF PATHOLOGY AND GENOMIC MEDICINE Glucose 152 (H) 65 - 99 mg/dL [facility] DEPARTMENT OF PATHOLOGY AND GENOMIC MEDICINE Calcium 8.6 (L) 8.8 - 10.2 mg/dL [facility] DEPARTMENT OF PATHOLOGY AND GENOMIC MEDICINE Specimen Plasma specimen Performing Organization Address City/State/Zipcode Phone Number [facility] DEPARTMENT OF PATHOLOGY AND [address] [place] [address] [employer] [facility] CBC with platelet and differential (08/18/2018 9:18 AM CDT)Only the most recent of2 resultswithin the time period is included. Pathologist [facility] WBC 14.23 (H) 4.50 - 11.00 [facility] DEPARTMENT OF k/uL PATHOLOGY AND GENOMIC MEDICINE RBC 4.27 4.20 - 5.50 [facility] DEPARTMENT OF m/uL PATHOLOGY AND GENOMIC MEDICINE HGB 11.2 (L) 12.0 - 16.0 [facility] DEPARTMENT OF g/dL PATHOLOGY AND GENOMIC MEDICINE HCT 36.1 (L) 37.0 - 47.0 % [facility] DEPARTMENT OF PATHOLOGY AND GENOMIC MEDICINE MCV 84.5 82.0 - 100.0 [facility] DEPARTMENT OF fL PATHOLOGY AND GENOMIC MEDICINE MCH 26.2 (L) 27.0 - 34.0 [facility] DEPARTMENT OF pg PATHOLOGY AND GENOMIC MEDICINE MCHC 31.0 31.0 - 37.0 [facility] DEPARTMENT OF g/dL PATHOLOGY AND GENOMIC MEDICINE RDW - SD 40.6 37.0 - 55.0 [facility] DEPARTMENT OF fL PATHOLOGY AND GENOMIC MEDICINE MPV 10.2 8.8 - 13.2 fL [facility] DEPARTMENT OF PATHOLOGY AND GENOMIC MEDICINE Platelet count 231 150 - 400 [facility] DEPARTMENT OF k/uL PATHOLOGY AND GENOMIC MEDICINE Nucleated RBC 0.00 /100 WBC [facility] DEPARTMENT OF PATHOLOGY AND GENOMIC MEDICINE Neutrophils 81.5 (H) 39.0 - 69.0 % [facility] DEPARTMENT OF PATHOLOGY AND GENOMIC MEDICINE Lymphocytes 10.0 (L) 25.0 - 45.0 % [facility] DEPARTMENT OF PATHOLOGY AND GENOMIC MEDICINE Monocytes 7.2 0.0 - 10.0 % [facility] DEPARTMENT OF PATHOLOGY AND GENOMIC MEDICINE Eosinophils 0.1 0.0 - 5.0 % [facility] DEPARTMENT OF PATHOLOGY AND GENOMIC MEDICINE Basophils 0.2 0.0 - 1.0 % [facility] DEPARTMENT OF PATHOLOGY AND GENOMIC MEDICINE Immature granulocytes 1.0Comment: 0.0 - 1.0 % [facility] DEPARTMENT OF "Immature PATHOLOGY AND granulocytes" GENOMIC MEDICINE (promyelocytes , myelocytes, metamyelocytes ) Specimen Blood Performing Organization Address City/State/Zipcode Phone Number [facility] DEPARTMENT OF PATHOLOGY AND [address] [place] [address] [employer] MEDICINE Vitamin D 25 hydroxy level (08/17/2018 4:00 AM CDT) Vitamin D, 30.7 30.0 - 150.0 [facility] DEPARTMENT OF 25-hydroxy Comment: ng/mL PATHOLOGY AND This assay reports the sum of 25-hydroxy vitamin D3 and 25-hydroxy vitamin GENOMIC MEDICINE D2. Reference range: 0-17 years: Deficiency: [...] alternative methods. Specimen Blood Performing Organization Address [facility] Phone Number [facility] DEPARTMENT OF PATHOLOGY AND [address] [place], [place] [phone] [facility] Homocystine, plasma (08/17/2018 3:45 AM CDT) Homocysteine 9.6 0.0 - 15.0 [facility] DEPARTMENT OF Comment: umol/L PATHOLOGY AND The risk for coronary vascular disease increases progressively [facility] with homocysteine concentration.A 3.4 times greater risk is associated with a homocysteine concentration of greater than 15.8 umol/L as compared to a concentration below 14.1 umol/L. Specimen Plasma specimen Performing Organization Address [facility] Phone Number [facility] DEPARTMENT OF PATHOLOGY AND [address] [place] [phone] [facility] Thyroid stimulating hormone (08/17/2018 3:45 AM CDT) TSH 0.81 0.27 - 4.20 uIU/mL [facility] DEPARTMENT OF PATHOLOGY AND GENOMIC MEDICINE Specimen Plasma specimen Performing Organization Address [facility] Centercode Phone Number [facility] DEPARTMENT OF PATHOLOGY AND [address] [place] [phone] [facility] Phosphorus level (08/17/2018 3:45 AM CDT) Phosphorus 3.4 2.4 - 4.5 mg/dL [facility] DEPARTMENT OF PATHOLOGY AND GENOMIC MEDICINE Specimen Plasma specimen Performing Organization Address [facility]ode Phone Number [facility] DEPARTMENT OF PATHOLOGY AND [address] [place] [phone] [facility] Magnesium level (08/17/2018 3:45 AM CDT) Magnesium 2.3 1.6 - 2.4 mg/dL [facility] DEPARTMENT OF PATHOLOGY AND GENOMIC MEDICINE Specimen Plasma specimen Performing Organization Address City/[facility] Centercode Phone Number [facility] DEPARTMENT OF PATHOLOGY AND [address] [place] [phone] [facility] Ferritin level (08/17/2018 3:45 AM CDT) Ferritin level 212 (H) 13 - 150 ng/mL [facility] DEPARTMENT OF PATHOLOGY AND GENOMIC MEDICINE Specimen Plasma specimen Performing Organization Address City/[facility]ode Phone Number [facility] DEPARTMENT OF PATHOLOGY AND [address] [place] [address] Vitamin B12 level (08/17/2018 3:45 AM CDT) Vitamin B12 1,058 (H) 211 - 946 [facility] DEPARTMENT OF Comment: pg/mL PATHOLOGY AND Significant overlap exists between normal and deficiency states. [facility] However, most patients with deficiencies will have Serum B12 <200 pg/mL. Specimen Serum Performing Organization Address City/[facility] Centercode Phone Number [facility] DEPARTMENT OF PATHOLOGY AND [address] [place] [address] Lipid panel (08/17/2018 3:45 AM CDT) Cholesterol 196 <200 mg/dL [facility] DEPARTMENT OF PATHOLOGY AND GENOMIC MEDICINE Triglycerides 107 <150 mg/dL [facility] DEPARTMENT OF PATHOLOGY AND GENOMIC MEDICINE HDL cholesterol 83 >40 mg/dL [facility] DEPARTMENT OF PATHOLOGY AND GENOMIC MEDICINE LDL cholesterol 112 (H)Comment: <100 mg/dL [facility] DEPARTMENT Result obtained by OF PATHOLOGY AND direct LDL GENOMIC MEDICINE measurement Lipid panel SeeBelow [facility] DEPARTMENT interpretation Comment: OF PATHOLOGY AND Total Cholesterol (mg/dL) GENOMIC MEDICINE <200 Desirable 443-378Zfesooxmrr-umnb >=240High Triglycerides (mg/dL) <150 Normal 035-159Lppymxeegt-gvll 200-499High >=500Very high HDL Cholesterol (mg/dL) <40Low (male) <40Low (female) LDL Cholesterol (mg/dL) <100 Optimal 100-129Near or above optimal 147-859Doyfbkghss-merg 160-189High >=190Very high Risk Catergories that modify [...] mg/dL) Specimen Plasma specimen Performing Organization Address [facility] Centercode Phone Number [facility] DEPARTMENT OF PATHOLOGY AND [address] [place] [address] Hemoglobin A1c (08/17/2018 3:30 AM CDT) Hemoglobin A1C 5.8 (H) 4.0 - 5.6 % [facility] DEPARTMENT OF Comment: PATHOLOGY AND HbA1c cutoffs for diagnosing diabetes: GENOMIC MEDICINE 4.0% - 5.6%=normal 5.7% - 6.4%=increased [...] well characterized. Specimen Blood Performing Organization Address [facility] Centercotx Phone Number [facility] DEPARTMENT OF PATHOLOGY AND [address] [place] [phone] [facility] Urinalysis, automated with microscopy (08/16/2018 9:15 PM CDT) Color, UA Straw [facility] DEPARTMENT OF PATHOLOGY AND GENOMIC MEDICINE Appearance, UA Clear [facility] DEPARTMENT OF PATHOLOGY AND GENOMIC MEDICINE Specific gravity, UA 1.013 1.001 - 1.035 [facility] DEPARTMENT OF PATHOLOGY AND GENOMIC MEDICINE pH, UA 5.0 5.0 - 8.5 [facility] DEPARTMENT OF PATHOLOGY AND GENOMIC MEDICINE Protein, UA Negative Negative [facility] DEPARTMENT OF PATHOLOGY AND GENOMIC MEDICINE Glucose, UA Negative Negative [facility] DEPARTMENT OF PATHOLOGY AND GENOMIC MEDICINE Ketones, UA Negative Negative [facility] DEPARTMENT OF PATHOLOGY AND GENOMIC MEDICINE Bilirubin, UA Negative Negative [facility] DEPARTMENT OF PATHOLOGY AND GENOMIC MEDICINE Blood, UA Negative Negative [facility] DEPARTMENT OF PATHOLOGY AND GENOMIC MEDICINE Nitrite, UA Negative Negative [facility] DEPARTMENT OF PATHOLOGY AND GENOMIC MEDICINE Urobilinogen, UA <2.0 <2.0 [facility] DEPARTMENT OF PATHOLOGY AND GENOMIC MEDICINE Leukocyte esterase, Negative Negative [facility] DEPARTMENT OF UA PATHOLOGY AND GENOMIC MEDICINE Epithelial cells, UA 2 /HPF [facility] DEPARTMENT OF PATHOLOGY AND GENOMIC MEDICINE WBC, UA <1 0 - 4 /HPF [facility] DEPARTMENT OF PATHOLOGY AND GENOMIC MEDICINE RBC, UA <1 0 - 5 /HPF [facility] DEPARTMENT OF PATHOLOGY AND GENOMIC MEDICINE Bacteria, UA None seen None seen [facility] DEPARTMENT OF PATHOLOGY AND GENOMIC MEDICINE Hyaline casts, UA 4 /LPF [facility] DEPARTMENT OF PATHOLOGY AND GENOMIC MEDICINE Yeast, UA None seen [facility] DEPARTMENT OF PATHOLOGY AND GENOMIC MEDICINE Yeast with None seen [facility] DEPARTMENT OF pseudohyphae, UA PATHOLOGY AND GENOMIC MEDICINE Specimen Urine Performing Organization Address City/State/Zipcode Phone Number [facility] DEPARTMENT OF PATHOLOGY AND [address] [place] [address] GENOMIC MEDICINE Surgical pathology request (08/15/2018 12:20 PM CDT) [facility] DEPARTMENT OF PATHOLOGY AND GENOMIC MEDICINE Surgical pathology See link below [facility] DEPARTMENT OF report for PDF Lab PATHOLOGY AND Report GENOMIC MEDICINE Result status This is Final [facility] DEPARTMENT OF Report for PATHOLOGY AND [id number] GENOMIC MEDICINE Specimen Performing Organization Address City/State/Zipcode Phone Number [facility] DEPARTMENT OF PATHOLOGY AND [address] [place] [address] GENOMIC MEDICINE XR Cervical Spine 1 Vw (08/15/2018 9:47 AM CDT) Specimen Narrative Performed At EXAMINATION: XR CERVICAL SPINE [...] spine for localization during cervical spine surgery. [facility]-[id number] Procedure Note Interface, Radiology Results Incoming - 08/15/2018 10:18 [...] spine for localization during cervical spine surgery. [facility]-[id number] Performing Organization Address [facility]/Zipcode Phone Number [facility] [address] [place] [address] XR Cervical Spine Complete w flex/ext (08/07/2018 11:59 AM CDT) Specimen Narrative Performed At EXAMINATION: XR CERVICAL SPINE COMPLETE W FLEX EXT [facility] CLINICAL HISTORY: M47.12 Other spondylosis with [...] is edentulous. No prevertebral soft tissue swelling. [facility]-[id number] Procedure Note Interface, Radiology Results Incoming - 08/07/2018 1:14 [...] is edentulous. No prevertebral soft tissue swelling. [facility]-[id number] Performing Organization Address [facility]/Zipcode Phone Number [facility] [address] [place] [address] after 03/07/2018 Insurance Payer Benefit Plan / Subscriber ID Effective Dates Phone Address Type Group MEDICARE MEDICARE PART A xxxxxxxxxxx 1997-Present [place], [place] Medicare AND B AARP AARP SUPPLEMENT xxxxxxxxx 2009-Present Commercial Advance Directives Patient has advance care planning documents on file. For more information, please contact:Beka Overton[address] [place] [address]
[2019-03-08 10:22] LABS: Protime INR 1.17
[2019-03-08 10:29] LABS: Absolute Monocytes 0.4 K/uL (0.1-1.3); Basophils % 1.1 % (0-1.3); Eosinophils % 2.5 % (0-4.4); Hematocrit 37.3 % (36.0-45.0); Lymphocytes % 18.8 % (15.3-44.8); MPV 8.4 fL (7.6-11.3); Monocytes % 6.6 % (3.3-12.3); RBC Red Blood Cell Count 4.47 M/uL (3.86-4.86)
[2019-03-08 10:31] LABS: Urine Blood TRACE (NEG); Urine Glucose NEGATIVE (NEG); Urine Protein NEGATIVE (NEG); Urine Specific Gravity 1.015 (1.005-1.030)
[2019-03-08 10:35] LABS: ALT/SGPT 16 U/L (12-78); AST/SGOT 20 U/L (15-37); Albumin 4.1 g/dL (3.4-5.0); Alkaline Phosphatase 64 U/L (45-117); BUN Blood Urea Nitrogen 29 mg/dL (7-18); Bicarbonate 26 mmol/L (21-32); Bilirubin Direct 0.2 mg/dL (0-0.2); Bilirubin Total 0.6 mg/dL (0.2-1.0); Glucose Level 112 mg/dL (74-106); Magnesium 2.3 mg/dL (1.8-2.4); NT PRO-BNP 264 pg/mL (<450); Potassium 5.3 mmol/L (3.5-5.1); Protein, Total 8.3 g/dL (6.4-8.2); Sodium Level 139 mmol/L (136-145); Troponin (Emerg Dept Use Only) < 0.02 ng/mL (0.0-0.045)
[2019-03-08 10:54] LABS: Urine Amorphous Sediment 1+ /HPF (NONE SEEN); Urine Bacteria <20 /HPF (<20); Urine Culture Reflex Order NOT NEEDED; Urine Mucus 2+ /HPF (NONE SEEN)
--- NOTE | 2019-03-08 12:02 | RAD REPORT ---
EXAM DESCRIPTION: RAD - Chest Single View - 03/08/2019 10:27 am CLINICAL HISTORY: CHEST PAIN Chest pain. COMPARISON: Chest Pa And Lat (2 Views) dated 07/30/2018; Chest Single View dated 12/25/2017; Chest Sin gle View dated 12/24/2017; Chest Single View dated 04/25/2016 FINDINGS: Portable technique limits examination quality. Elevation of the right hemidiaphragm is seen, chronic. The lungs are grossly clear. The heart is norm al in size. No displaced fractures. IMPRESSION: No acute intrathoracic process suspected.
[2019-03-08] MEDS ORDERED: SOD POLYSTYREN SUL 15 GM/60 ML UCUP ONE (13:06)
[2019-03-08] MEDS ORDERED: NA CHLORIDE 0.9% 500 ML ONE (13:06)
--- NOTE | 2019-03-08 13:44 | EDPHYS ---
Physician Documentation [facility] Name: Nisha Carrillo Age: 88 yrs Sex: Female : 1930 Arrival Date: 03/08/2019 Time: 09:24 Bed 3 Private MD: ED Physician Rajendra Kapoor HPI: 03/08 10:36 This 88 yrs old Black Female presents to ER via Wheelchair with complaints of Weakness, pm1 Urinary Frequency, Shortness Of Breath. 10:36 The patient presents to the emergency department with weakness of the entire body, pm1 generalized weakness. Onset: The symptoms/episode began/occurred 2 week(s) ago. Associated signs and symptoms: Pertinent positives: shortness of breath, urinary frequency. Modifying factors: The patient symptoms are alleviated by nothing, the patient symptoms are aggravated by nothing. Associated signs and symptoms: Pertinent positives: Chest pain for 1 week, Pertinent negatives: dizziness, fever, headache, nausea, paresthesias. Severity of symptoms: in the emergency department the symptoms are unchanged. Dr. Khan for UTI and completed abx yesterday. Patient with generalized weakness for 2 weeks and chest pain for 1 week. Patient recently saw PCP and Dr. Khan for UTI. Patient reports urinary frequency. Historical: - Allergies: 09:49 Codeine; sv 09:50 Codeine; iw - Home Meds: 09:50 metoprolol tartrate 100 mg Oral tab 1 tab once daily [Active]; amlodipine 10 mg tab 1 iw tab once daily [Active]; clopidogrel 75 mg oral tab 1 tab once daily [Active]; levothyroxine 75 mcg tab 1 tab once daily [Active]; pantoprazole 40 mg oral TbEC 1 tab once daily [Active]; aspirin 81 mg Oral TbEC 1 tab once daily [Active]; duloxetine oral oral once daily [Active]; - PMHx: 09:49 CHF; CVA; GERD; Hypertension; Hypothyroidism; sv 09:50 CHF; CVA; GERD; Hypertension; Hypothyroidism; iw - PSHx: 09:50 Hysterectomy; Tonsillectomy; iw - Immunization history:: Adult Immunizations up to date. - Social history:: Smoking status: Patient/guardian denies using tobacco. - Ebola Screening: : No symptoms or risks identified at this time Patient negative for fever greater than or equal to 101.5 degrees Fahrenheit, and additional compatible Ebola Virus Disease symptoms Patient denies exposure to infectious person Patient denies travel to an Ebola-affected area in the 21 days before illness onset No symptoms or risks identified at this time. ROS: 10:36 Constitutional: Negative for fever, chills, and weight loss, Eyes: Negative for injury, pm1 pain, redness, and discharge, ENT: Negative for injury, pain, and discharge, Neck: Negative for injury, pain, and swelling, Cardiovascular: Negative for chest pain, palpitations, and edema, Respiratory: Negative for shortness of breath, cough, wheezing, and pleuritic chest pain, Abdomen/GI: Negative for abdominal pain, nausea, vomiting, diarrhea, and constipation, Back: Negative for injury and pain. 10:36 MS/Extremity: Negative for injury and deformity, Skin: Negative for injury, rash, and discoloration. 10:36 : Positive for urinary frequency, Negative for burning with urination. 10:36 Neuro: Positive for weakness, Negative for dizziness, numbness, tingling. Exam: 10:36 Constitutional: This is a well developed, well nourished patient who is awake, alert, pm1 and in no acute distress. Head/Face: Normocephalic, atraumatic. Eyes: Pupils equal round and reactive to light, extra-ocular motions intact. Lids and lashes normal. Conjunctiva and sclera are non-icteric and not injected. Cornea within normal limits. Periorbital areas with no swelling, redness, or edema. ENT: Nares patent. No nasal discharge, no septal abnormalities noted. Tympanic membranes are normal and external auditory canals are clear. Oropharynx with no redness, swelling, or masses, exudates, or evidence of obstruction, uvula midline. Mucous membranes moist. Neck: Trachea midline, no thyromegaly or masses palpated, and no cervical lymphadenopathy. Supple, full range of motion without nuchal rigidity, or vertebral point tenderness. No Meningismus. Chest/axilla: Normal chest wall appearance and motion. Nontender with no deformity. No lesions are appreciated. Cardiovascular: Regular rate and rhythm with a normal S1 and S2. No gallops, murmurs, or rubs. Normal PMI, no JVD. No pulse deficits. Respiratory: Lungs have equal breath sounds bilaterally, clear to auscultation and percussion. No rales, rhonchi or wheezes noted. No increased work of breathing, no retractions or nasal flaring. Abdomen/GI: Soft, non-tender, with normal bowel sounds. No distension or tympany. No guarding or rebound. No evidence of tenderness throughout. Back: No spinal tenderness. No costovertebral tenderness. Full range of motion. Skin: Warm, dry with normal turgor. Normal color with no rashes, no lesions, and no evidence of cellulitis. MS/ Extremity: Pulses equal, no cyanosis. Neurovascular intact. Full, normal range of motion. 10:36 Neuro: Orientation: is normal, Mentation: is normal, Cranial nerves: CN II- XII are normal as tested, Cerebellar function: normal finger to nose testing, Motor: is normal, moves all fours, Sensation: is normal, no obvious gross deficits. Vital Signs: 09:48 BP 150 / 63; Pulse 50; Resp 18; Temp 98; Pulse Ox 98% ; sv 10:25 BP 137 / 56; Pulse 47 MON; Resp 16; Pulse Ox 96% on R/A; sv 11:00 BP 135 / 54; Pulse 47; Resp 17; Pulse Ox 98% ; sv 11:30 BP 132 / 60; Pulse 47; Resp 14; Pulse Ox 97% ; sv 10:25 Sinus bradycardia sv MDM: 09:58 Patient medically screened. pm1 13:43 Data reviewed: vital signs. Data interpreted: Pulse oximetry: on room air is 97 %. pm1 Interpretation: normal. Counseling: I had a detailed discussion with the patient and/or guardian regarding: the historical points, exam findings, and any diagnostic results supporting the discharge/admit diagnosis, lab results, radiology results, the need for outpatient follow up, to return to the emergency department if symptoms worsen or persist or if there are any questions or concerns that arise at home. 03/08 10:00 Order name: Basic Metabolic Panel; Complete Time: 10:56 pm03/08 10:00 Order name: CBC with Diff; Complete Time: 10:30 pm03/08 10:00 Order name: LFT's; Complete Time: 10:56 pm03/08 10:00 Order name: Magnesium; Complete Time: 10: pm03/08 10:00 Order name: NT PRO-BNP; Complete Time: 10:56 pm03/08 10:00 Order name: PT-INR; Complete Time: 10:26 pm03/08 10:00 Order name: Troponin (emerg Dept Use Only); Complete Time: 10:56 pm03/08 10:00 Order name: XRAY Chest (1 view); Complete Time: 12:37 pm03/08 10:00 Order name: EKG; Complete Time: 10:02 pm03/08 10:00 Order name: Cardiac monitoring; Complete Time: 10:03 pm03/08 10:00 Order name: Urine Microscopic Only; Complete Time: 10:56 pm03/08 10:18 Order name: Urine Dipstick--Ancillary (enter results); Complete Time: 10: bd 03/08 10:00 Order name: EKG - Nurse/Tech; Complete Time: 10:03 pm03/08 10:00 Order name: IV Saline Lock; Complete Time: 10:03 pm03/08 10:00 Order name: Labs collected and sent; Complete Time: 10: pm03/08 10:00 Order name: O2 Per Protocol; Complete Time: 10:03 pm03/08 10:00 Order name: O2 Sat Monitoring; Complete Time: 10:04 pm03/08 10:00 Order name: Urine Dipstick-Ancillary (obtain specimen); Complete Time: 10:17 pm03/08 10:00 Order name: Straight Cath - Urine; Complete Time: 10:17 pm1 Administered Medications: 12:59 Drug: NS 0.9% 500 ml Route: IV; Rate: bolus; Site: right antecubital; sv 13:30 Follow up: Response: No adverse reaction; IV Status: Completed infusion; IV Intake: sv 500ml 13:00 Drug: Kayexalate 30 grams Route: PO; sv 14:00 Follow up: Response: No adverse reaction sv Disposition: 03/08/19 13:44 Discharged to Home. Impression: Dehydration. - Condition is Stable. - Discharge Instructions: Dehydration, Elderly. - Medication Reconciliation Form, Thank You Letter, Antibiotic Education, Prescription Opioid Use form. - Follow up: Emergency Department; When: As needed; Reason: Worsening of condition. Follow up: Private Physician; When: 2 - 3 days; Reason: Recheck today's complaints, Continuance of care, Re-evaluation by your physician. - Problem is new. - Symptoms have improved. Addendum: 03/12/2019 20:44 Co-signature as Attending Physician, Rajendra Kapoor MD. g s Signatures: Dispatcher [employer] Maryan Ko, RN RN Grecia Packer RN RN iw Amanuel Oseguera, STRAIGHTEDGE MACHINE OPERATOR HELPER STRAIGHTEDGE MACHINE OPERATOR HELPER pm1 Rajendra Kapoor MD MD Corrections: (The following items were deleted from the chart) 03/08 14:30 13:44 03/08/2019 13:44 Discharged to Home. Impression: Dehydration. Condition is sv Stable. Forms are Medication Reconciliation Form, Thank You Letter, Antibiotic Education, Prescription Opioid Use. Follow up: Emergency Department; When: As needed; Reason: Worsening of condition. Follow up: Private Physician; When: 2 - 3 days; Reason: Recheck today's complaints, Continuance of care, Re-evaluation by your physician. Problem is new. Symptoms have improved. pm1
--- NOTE | 2019-03-08 13:44 | ER ---
Nurse's Notes [facility] Name: Nisha Carrillo Age: 88 yrs Sex: Female : 1930 Arrival Date: 03/08/2019 Time: 09:24 Bed 3 Private MD: Diagnosis: Dehydration Presentation: 03/08 09:46 Presenting complaint: Patient states: has had bladder problems X 2 weeks, finished abx iw for UTI yesterday, has been feeling weak all over during this time, has been feeling SOB and stumbling around, also c/o chest tightness. Transition of care: patient was not received from another setting of care. Onset of symptoms was March 01, 2019. Risk Assessment: Do you want to hurt yourself or someone else? Patient reports no desire to harm self or others. Initial Sepsis Screen: Does the patient meet any 2 criteria? No. Patient's initial sepsis screen is negative. Does the patient have a suspected source of infection?. Care prior to arrival: None. 09:46 Method Of Arrival: Wheelchair iw 09:46 Acuity: SERGIO 3 iw Triage Assessment: 09:46 General: Appears in no apparent distress. uncomfortable, well groomed, well developed, sv Behavior is calm, cooperative, appropriate for age. Pain: Complains of pain in chest Pain currently is 6 out of 10 on a pain scale. Quality of pain is described as tightness Is intermittent. Neuro: Level of Consciousness is awake, alert, obeys commands, Oriented to person, place, time, situation, Moves all extremities. Full function Gait is steady, Reports weakness. Cardiovascular: Heart tones S1 S2 present Patient's skin is warm and dry. Pulses are 3+ in right radial artery and left radial artery Rhythm is sinus bradycardia. Cardiovascular: Chest pain is described as mild, diffuse, quality is tightness is located in anterior chest wall episodes are intermittent. Respiratory: Reports shortness of breath Airway is patent Respiratory effort is even, unlabored, Respiratory pattern is regular, symmetrical, Breath sounds are clear bilaterally. : Reports urinary frequency. Derm: Skin is normal. Historical: - Allergies: 09:49 Codeine; sv 09:50 Codeine; iw - Home Meds: 09:50 metoprolol tartrate 100 mg Oral tab 1 tab once daily [Active]; amlodipine 10 mg tab 1 iw tab once daily [Active]; clopidogrel 75 mg oral tab 1 tab once daily [Active]; levothyroxine 75 mcg tab 1 tab once daily [Active]; pantoprazole 40 mg oral TbEC 1 tab once daily [Active]; aspirin 81 mg Oral TbEC 1 tab once daily [Active]; duloxetine oral oral once daily [Active]; - PMHx: 09:49 CHF; CVA; GERD; Hypertension; Hypothyroidism; sv 09:50 CHF; CVA; GERD; Hypertension; Hypothyroidism; iw - PSHx: 09:50 Hysterectomy; Tonsillectomy; iw - Immunization history:: Adult Immunizations up to date. - Social history:: Smoking status: Patient/guardian denies using tobacco. - Ebola Screening: : No symptoms or risks identified at this time Patient negative for fever greater than or equal to 101.5 degrees Fahrenheit, and additional compatible Ebola Virus Disease symptoms Patient denies exposure to infectious person Patient denies travel to an Ebola-affected area in the 21 days before illness onset No symptoms or risks identified at this time. Screenin:47 Abuse screen: Denies threats or abuse. Denies injuries from another. Nutritional sv screening: No deficits noted. Tuberculosis screening: No symptoms or risk factors identified. Fall Risk None identified. Assessment: 10:30 Reassessment: Patient appears in no apparent distress at this time. No changes from sv previously documented assessment. Patient and/or family updated on plan of care and expected duration. Pain level reassessed. Patient is alert, oriented x 3, equal unlabored respirations, skin warm/dry/pink. 11:15 Reassessment: Patient appears in no apparent distress at this time. No changes from sv previously documented assessment. Patient and/or family updated on plan of care and expected duration. Pain level reassessed. Patient is alert, oriented x 3, equal unlabored respirations, skin warm/dry/pink. 12:59 Reassessment: Patient appears in no apparent distress at this time. Patient and/or sv family updated on plan of care and expected duration. Pain level reassessed. Patient is alert, oriented x 3, equal unlabored respirations, skin warm/dry/pink. Patient states feeling better. Patient states symptoms have improved. Vital Signs: 09:48 BP 150 / 63; Pulse 50; Resp 18; Temp 98; Pulse Ox 98% ; sv 10:25 BP 137 / 56; Pulse 47 MON; Resp 16; Pulse Ox 96% on R/A; sv 11:00 BP 135 / 54; Pulse 47; Resp 17; Pulse Ox 98% ; sv 11:30 BP 132 / 60; Pulse 47; Resp 14; Pulse Ox 97% ; sv 10:25 Sinus bradycardia sv ED Course: 09:24 Patient arrived in ED. tw3 09:40 Initial lab(s) drawn, by wi, sent to lab. Inserted saline lock: 20 gauge in right sv antecubital area, using aseptic technique. ,using aseptic technique. done by [facility] Blood collected. 09:42 EKG done, by ED staff, reviewed by Rajendra Kapoor MD. sv 09:46 Maryan Quigley, OLLIE is Primary Nurse. sv 09:46 Arm band placed on. sv 09:47 Patient has correct armband on for positive identification. Placed in gown. Bed in low sv position. Call light in reach. Side rails up X2. Adult w/ patient. equipment monitor phototypesetting on. Pulse ox on. NIBP on. Door closed. Head of bed elevated. 09:48 Triage completed. iw 09:49 Patient maintains SpO2 saturation greater than 95% on room air. sv 09:50 Amanuel Oseguera NP is PHCP. pm1 09:50 Rajendra Kapoor MD is Attending Physician. pm1 10:17 Urine collected: straight cath specimen, clear. sv 10:17 X-ray(s) taken. sv 10:27 XRAY Chest (1 view) In Process Unspecified. EDMS 14:30 No provider procedures requiring assistance completed. IV discontinued, intact, sv bleeding controlled, No redness/swelling at site. Pressure dressing applied. Administered Medications: 12:59 Drug: NS 0.9% 500 ml Route: IV; Rate: bolus; Site: right antecubital; sv 13:30 Follow up: Response: No adverse reaction; IV Status: Completed infusion; IV Intake: sv 500ml 13:00 Drug: Kayexalate 30 grams Route: PO; sv 14:00 Follow up: Response: No adverse reaction sv Intake: 13:30 IV: 500ml; Total: 500ml. sv Output: 10:17 Urine: 90ml (Straight Cath); Total: 90ml. sv Outcome: 13:44 Discharge ordered by . pm1 14:30 Patient left the ED. sv 14:30 Discharged to home via wheelchair, with family. sv 14:30 Condition: stable 14:30 Condition: improved 14:30 Discharge instructions given to patient, Instructed on discharge instructions, follow up and referral plans. Demonstrated understanding of instructions, follow-up care. Signatures: Dispatcher [employer] Maryan Ko RN RN sv Williams, Irene, RN RN iw Marinas, Patrick, NP GEODESY TEACHER pm1 Edda Amaro tw3
[2019-03-08 15:37] VITALS: TEMP 98
[2019-03-08 15:41] VITALS: BP 132/60; O2SAT 97
--- NOTE | 2019-03-09 12:54 | EKG ---
Test Date: 2019-03-08 Test Time: 09:42:11 Director Meetings: DEMETRIO MEASUREMENT RESULTS: Intervals: Rate: 52 CO: 160 QRSD: 116 QT: 470 QTc: 437 [place]: P: 26 CO: 160 QRS: -15 T: 10 INTERPRETIVE STATEMENTS: Sinus bradycardia Left ventricular hypertrophy with QRS widening Abnormal ECG Compared to ECG 11/14/2018 10:43:39 Sinus arrhythmia no longer present Electronically Signed On 03-09-19 12:52:26 CDT by Franky Pineda
== END 2019-03-08 14:30 | disposition home or self-care (01) ==
LOC: ER 09:22
DX: E86.0 Dehydration (principal); I10 Essential (primary) hypertension; E03.9 Hypothyroidism, unspecified; I50.9 Heart failure, unspecified; Z79.82 Long term (current) use of aspirin; Z88.5 Allergy status to narcotic agent
CPT/HCPCS: 36415; 71045; 80048; 80076; 81003; 81015; 83735; 83880; 84484; 85025; 85610; 93005; 96360; 99285

== ENCOUNTER 2019-08-10 09:45 | Observation (INO) | payer OTHER, MEDICARE ==
[2019-08-10] MEDS ORDERED: NA CHLORIDE 0.9% 500 ML ONE (10:19)
[2019-08-10 10:31] LABS: Absolute Lymphocytes (CBC) 0.9 K/uL (0.7-4.9); Basophils % 0.7 % (0-1.3); Hematocrit 36.3 % (36.0-45.0); Lymphocytes % 15.2 % (15.3-44.8); MPV 8.4 fL (7.6-11.3); RBC Red Blood Cell Count 4.35 M/uL (3.86-4.86)
[2019-08-10 10:50] LABS: Potassium 3.9 mmol/L (3.5-5.1); Troponin (Emerg Dept Use Only) 0.11 ng/mL (0.0-0.045)
--- NOTE | 2019-08-10 11:23 | RAD REPORT ---
EXAM DESCRIPTION: RAD - Chest Single View - 08/10/2019 10:44 am CLINICAL HISTORY: Dyspnea, chest tightness COMPARISON: February 2019 TECHNIQUE: AP portable chest image was obtained 1027 hours . FINDINGS: Lung volumes are low. Exam is further limited by portable technique and large body habitus . Right hemidiaphragm elevation again noted. This limits posterior right lung base. An acute lung par enchymal process is not seen. Heart and vasculature are normal. No measurable pleural effusion and no pneumothorax. No acute bony abnormality seen. No acute aortic findings suspected. IMPRESSION: Exam is limited as detailed. No acute cardiopulmonary finding seen. No significant change from prior imaging suspected.
--- NOTE | 2019-08-10 11:32 | EDPHYS ---
Physician Documentation [facility] Name: Nisha Carrillo Age: 89 yrs Sex: Female : 1930 Arrival Date: 08/10/2019 Time: 09:[address] Private MD: Joey Melendez V ED Physician Sung Rodríguez HPI: 08/10 10:24 This 89 yrs old Black Female presents to ER via Wheelchair with complaints of rn dehydrated, chest tightness. 10:25 Reports feels "dry and dehydrated", for about 1 week, reports overactive bladder and rn botox has been discussed but not performed. Denies fever. Reports also has been having intermittent chest tightness, describes as more difficulty breathing than actual pain. NO fever. No trauma or fall. No cough. Reports off of her lasix for 3 months or so due to increased urination. Reports dizziness when standing and walking, no syncope. Denies abd pain/vomiting/diarrhea.. 10:25 Onset: The symptoms/episode began/occurred 1 week(s) ago. Severity of symptoms: At rn their worst the symptoms were moderate in the emergency department the symptoms are unchanged. The patient has experienced similar episodes in the past. The patient has not recently seen a physician. Historical: - Allergies: 09:56 Codeine; jl7 - Home Meds: 09:56 mirabegron oral oral [Active]; duloxetine Oral once daily [Active]; metoprolol tartrate jl7 100 mg Oral tab 1 tab 2 times per day [Active]; amlodipine 10 mg tab 1 tab once daily [Active]; aspirin 81 mg Oral TbEC 1 tab once daily [Active]; Lasix 20 mg Oral tab 1 tab once daily [Active]; 10:05 amlodipine 10 mg tab 1 tab once daily [Active]; aspirin 81 mg Oral TbEC 1 tab once tw2 daily [Active]; clopidogrel 75 mg Oral tab 1 tab once daily [Active]; Klor-Con 10 10 mEq Oral TbER 1 tab once daily [Active]; kyolic [Active]; levothyroxine 75 mcg tab [Active]; Zytiga 250 mg Oral tab [Active]; Plavix 75 mg Oral tab 1 tab once daily [Active]; pantoprazole 40 mg Oral TbEC 1 tab once daily [Active]; pantoprazole 40 mg Oral TbEC 1 tab once daily [Active]; metoprolol tartrate 50 mg Oral tab 1 tab once daily [Active]; losartan 100 mg Oral tab 1 tab once daily [Active]; levothyroxine 75 mcg tab 1 tab once daily [Active]; - PMHx: 09:56 CHF; CVA; GERD; Hypertension; Hypothyroidism; jl7 - PSHx: 09:56 Hysterectomy; Tonsillectomy; jl7 - Immunization history:: Adult Immunizations up to date. - Social history:: Smoking status: Patient/guardian denies using tobacco. - Ebola Screening: : No symptoms or risks identified at this time. - Family history:: not pertinent. - Hospitalizations: : No recent hospitalization is reported. ROS: 10:25 Constitutional: Negative for fever, chills, and weight loss, Eyes: Negative for injury, rn pain, redness, and discharge, Neck: Negative for injury, pain, and swelling, Cardiovascular: Negative for palpitations, and edema, Respiratory: Negative for cough, wheezing, and pleuritic chest pain, Abdomen/GI: Negative for abdominal pain, nausea, vomiting, diarrhea, and constipation, Back: Negative for injury and pain, : Negative for injury, bleeding, discharge, and swelling, MS/Extremity: Negative for injury and deformity, Skin: Negative for injury, rash, and discoloration, Neuro: Negative for headache, numbness, tingling, and seizure. Exam: 10:25 Constitutional: Elderly female, no acute distress, laying almost flat in bed rn Head/Face: Normocephalic, atraumatic. Eyes: Pupils equal round and reactive to light, extra-ocular motions intact. Lids and lashes normal. Conjunctiva and sclera are non-icteric and not injected. Cornea within normal limits. Periorbital areas with no swelling, redness, or edema. ENT: dry MM Neck: Trachea midline, no thyromegaly or masses palpated, and no cervical lymphadenopathy. Supple, full range of motion without nuchal rigidity, or vertebral point tenderness. No Meningismus. Cardiovascular: Regular rate and rhythm. No pulse deficits. Respiratory: Lungs have equal breath sounds bilaterally, diminished at bases, no retractions. Abdomen/GI: soft, mild suprapubic tenderness, no rebound/guarding/masses Skin: Warm, dry with normal turgor. Normal color with no rashes, no lesions, and no evidence of cellulitis. MS/ Extremity: Pulses equal, no cyanosis. Neurovascular intact. Full, normal range of motion. Equal circumference. Neuro: Awake and alert, GCS 15, oriented to person, place, time, and situation. Cranial nerves II-XII grossly intact. Motor strength 5/5 in all extremities. Sensory grossly intact. 11:15 ECG was reviewed by the Attending Physician. rn Vital Signs: 09:56 BP 165 / 94; Pulse 52; Resp 16 S; Temp 97.9(O); Pulse Ox 96% on R/A; Pain 7/10; jl7 11:03 BP 194 / 80; Pulse 49; Resp 15; Pulse Ox 97% on R/A; tw2 12:02 BP 199 / 85; Pulse 48; Resp 17; Pulse Ox 97% on R/A; tw2 13:05 BP 192 / 82; Pulse 52; Resp 16; Pulse Ox 97% on R/A; tw2 13:05 no further orders at this time per Alanna Abdullahi,RN notified. tw2 MDM: 10:01 Patient medically screened. rn 11:30 Differential Diagnosis chest pain, angina, CHF, dehydration, deconditioning.. Data rn reviewed: vital signs, nurses notes, lab test result(s), EKG, radiologic studies, plain films, and as a result, I will admit patient. Counseling: I had a detailed discussion with the patient and/or guardian regarding: the historical points, exam findings, and any diagnostic results supporting the discharge/admit diagnosis, lab results, radiology results, the need for further work-up and treatment in the hospital. Admission orders: after a detailed discussion of the patient's condition and case, the admit orders are written by me. ED course: Consulted with Dr. Melendez, will admit for observation for chest pain and elevated troponin. . 08/10 10: Order name: CBC with Diff; Complete Time: 11: rn 08/10 10:09 Order name: Basic Metabolic Panel; Complete Time: 11: rn 08/10 10:09 Order name: Troponin (emerg Dept Use Only); Complete Time: 11: rn 08/10 10:09 Order name: N-Terminal Pro-brain Natriuretic Peptide; Complete Time: 11: rn 08/10 10:09 Order name: Urine Microscopic Only; Complete Time: 12:11 rn 08/10 11:35 Order name: Urine Dipstick--Ancillary (enter results); Complete Time: 12:11 08/10 10:09 Order name: IV Start; Complete Time: 10:24 rn 08/10 10:09 Order name: EKG; Complete Time: 10:10 rn 08/10 10:09 Order name: EKG - Nurse/Tech; Complete Time: 10:18 rn 08/10 10:09 Order name: Urine Dipstick-Ancillary (obtain specimen); Complete Time: 11:56 rn 08/10 10:09 Order name: XRAY Chest (1 view); Complete Time: 11:27 rn 08/10 12:36 Order name: CT Chest For PE Angio bd EC:15 Rate is 55 beats/min. Rhythm is regular. QRS [place] is Normal. [place] interval is normal. QRS rn interval is normal. QT interval is normal. No Q waves. T waves are Normal. No ST changes noted. Clinical impression: Sinus bradycardia. Interpreted by me. Reviewed by me. Administered Medications: 10:25 Drug: NS 0.9% 500 ml Route: IV; Rate: bolus; Site: left antecubital; tw2 11:02 Follow up: IV Status: IV infiltrated; infiltration to LEFT ac, iv to right wrist at tw2 this time. 12:00 Drug: Aspirin Chewable Tablet 81 mg Route: PO; tw2 12:00 Follow up: Response: No adverse reaction tw2 Disposition: 08/10/19 11:31 Hospitalization ordered by Joey Melendez for Observation. Preliminary diagnosis are Chest pain, unspecified, Dyspnea, unspecified, Dehydration. - Bed requested for Telemetry/MedSurg (observation). - Status is Observation. tw2 - Condition is Stable. - Problem is new. - Symptoms have improved. UTI on Admission? No Signatures: Dispatcher [employer] EDMS Genet Philip Roman, MD MD rn Wise, Tara, RN RN tw2 Caprice Pineda RN RN jl7 Corrections: (The following items were deleted from the chart) 10: 10:25 Reports feels "dry and dehydrated", . rn rn 11:22 10:25 Constitutional: Elderly female, no acute distress, laying almost flat in bed rn Head/Face: Normocephalic, atraumatic. Eyes: Pupils equal round and reactive to light, extra-ocular motions intact. Lids and lashes normal. Conjunctiva and sclera are non-icteric and not injected. Cornea within normal limits. Periorbital areas with no swelling, redness, or edema. ENT: dry MM Neck: Trachea midline, no thyromegaly or masses palpated, and no cervical lymphadenopathy. Supple, full range of motion without nuchal rigidity, or vertebral point tenderness. No Meningismus. Cardiovascular: Regular rate and rhythm. No pulse deficits. Respiratory: Lungs have equal breath sounds bilaterally, clear to auscultation. No increased work of breathing, no retractions or nasal flaring. Abdomen/GI: soft, mild suprapubic tenderness, no rebound/guarding/masses Skin: Warm, dry with normal turgor. Normal color with no rashes, no lesions, and no evidence of cellulitis. MS/ Extremity: Pulses equal, no cyanosis. Neurovascular intact. Full, normal range of motion. Equal circumference. Neuro: Awake and alert, GCS 15, oriented to person, place, time, and situation. Cranial nerves II-XII grossly intact. Motor strength 5/5 in all extremities. Sensory grossly intact. rn 12:37 11:31 Hospitalization Ordered by Joey Melendez MD for Observation. Preliminary diagnosis bd is Chest pain, unspecified; Dyspnea, unspecified; Dehydration. Bed requested for Telemetry/MedSurg (observation). Status is Observation. Condition is Stable. Problem is new. Symptoms have improved. UTI on Admission? No. rn 13:12 12:37 08/10/2019 11:31 Hospitalization Ordered by Joey Melendez MD for Observation. tw2 Preliminary diagnosis is Chest pain, unspecified; Dyspnea, unspecified; Dehydration. Bed requested for Telemetry/MedSurg (observation). Status is Observation. Condition is Stable. Problem is new. Symptoms have improved. UTI on Admission? No. bd
--- NOTE | 2019-08-10 11:32 | ER ---
Nurse's Notes [facility] Name: Nisha Carrillo Age: 89 yrs Sex: Female : 1930 Arrival Date: 08/10/2019 Time: 09:[address] Private MD: Joey Melendez V Diagnosis: Chest pain, unspecified;Dyspnea, unspecified;Dehydration Presentation: 08/10 09:51 Presenting complaint: Patient states: Chest tightness x 1 week, pt states "Dryness, I jl7 think I am dehydrated. I'm dizzy when I stand up.". Transition of care: patient was not received from another setting of care. Onset of symptoms was August 03, 2019. Risk Assessment: Do you want to hurt yourself or someone else? Patient reports no desire to harm self or others. Initial Sepsis Screen: Does the patient meet any 2 criteria? No. Patient's initial sepsis screen is negative. Does the patient have a suspected source of infection? No. Patient's initial sepsis screen is negative. Care prior to arrival: None. 09:51 Method Of Arrival: Wheelchair [facility] 09:51 Acuity: SERGIO 2 jl7 Historical: - Allergies: 09:56 Codeine; jl7 - Home Meds: 09:56 mirabegron oral oral [Active]; duloxetine Oral once daily [Active]; metoprolol tartrate jl7 100 mg Oral tab 1 tab 2 times per day [Active]; amlodipine 10 mg tab 1 tab once daily [Active]; aspirin 81 mg Oral TbEC 1 tab once daily [Active]; Lasix 20 mg Oral tab 1 tab once daily [Active]; 10:05 amlodipine 10 mg tab 1 tab once daily [Active]; aspirin 81 mg Oral TbEC 1 tab once tw2 daily [Active]; clopidogrel 75 mg Oral tab 1 tab once daily [Active]; Klor-Con 10 10 mEq Oral TbER 1 tab once daily [Active]; kyolic [Active]; levothyroxine 75 mcg tab [Active]; Zytiga 250 mg Oral tab [Active]; Plavix 75 mg Oral tab 1 tab once daily [Active]; pantoprazole 40 mg Oral TbEC 1 tab once daily [Active]; pantoprazole 40 mg Oral TbEC 1 tab once daily [Active]; metoprolol tartrate 50 mg Oral tab 1 tab once daily [Active]; losartan 100 mg Oral tab 1 tab once daily [Active]; levothyroxine 75 mcg tab 1 tab once daily [Active]; - PMHx: 09:56 CHF; CVA; GERD; Hypertension; Hypothyroidism; jl7 - PSHx: 09:56 Hysterectomy; Tonsillectomy; jl7 - Immunization history:: Adult Immunizations up to date. - Social history:: Smoking status: Patient/guardian denies using tobacco. - Ebola Screening: : No symptoms or risks identified at this time. - Family history:: not pertinent. - Hospitalizations: : No recent hospitalization is reported. Screenin:58 Abuse screen: Denies threats or abuse. Nutritional screening: No deficits noted. tw2 Tuberculosis screening: No symptoms or risk factors identified. Fall Risk Secondary diagnosis (15 points) impaired mobility. Assessment: :58 Pain: Pain does not radiate. Pain began 1 week. Cardiovascular: Reports "chest tw2 tightness". 10:01 General: Appears in no apparent distress. obese, well groomed, Behavior is calm, tw2 cooperative, appropriate for age. Pain: Complains of pain in chest. Neuro: Level of Consciousness is awake, alert, obeys commands, Oriented to person, place, time, situation. Cardiovascular: Heart tones S1 S2 Patient's skin is warm and dry. Respiratory: Airway is patent Respiratory effort is even, unlabored, Respiratory pattern is regular, symmetrical, Breath sounds are clear bilaterally. GI: No signs and/or symptoms were reported involving the gastrointestinal system. Abdomen is round non-distended, obese, Bowel sounds present X 4 quads. : No signs and/or symptoms were reported regarding the genitourinary system. EENT: No signs and/or symptoms were reported regarding the EENT system. Derm: No signs and/or symptoms reported regarding the dermatologic system. Musculoskeletal: Range of motion: intact in all extremities. 10:02 Reassessment: provider at bedside at this time. tw2 11:03 Reassessment: Patient appears in no apparent distress at this time. No changes from tw2 previously documented assessment. Patient and/or family updated on plan of care and expected duration. Pain level reassessed. Patient is alert, oriented x 3, equal unlabored respirations, skin warm/dry/pink. 12:02 Reassessment: Patient appears in no apparent distress at this time. No changes from tw2 previously documented assessment. Patient and/or family updated on plan of care and expected duration. Pain level reassessed. Patient is alert, oriented x 3, equal unlabored respirations, skin warm/dry/pink. 12:32 Reassessment: Dr. Melendez at bedside. tw2 13:05 Reassessment: Patient appears in no apparent distress at this time. No changes from tw2 previously documented assessment. Patient and/or family updated on plan of care and expected duration. Pain level reassessed. Patient is alert, oriented x 3, equal unlabored respirations, skin warm/dry/pink. Vital Signs: 09:56 BP 165 / 94; Pulse 52; Resp 16 S; Temp 97.9(O); Pulse Ox 96% on R/A; Pain 7/10; jl7 11:03 BP 194 / 80; Pulse 49; Resp 15; Pulse Ox 97% on R/A; tw2 12:02 BP 199 / 85; Pulse 48; Resp 17; Pulse Ox 97% on R/A; tw2 13:05 BP 192 / 82; Pulse 52; Resp 16; Pulse Ox 97% on R/A; tw2 13:05 no further orders at this time per Alanna Abdullahi,RN notified. tw2 ED Course: 09:48 Patient arrived in ED. mr 09:49 Joey Melendez MD is Private Physician. mr 09:51 Placed in gown. Bed in low position. Adult w/ patient. accounting systems analyst on. Pulse ox on. tw2 NIBP on. 09:53 Triage completed. jl7 09:56 Arm band placed on right wrist. jl7 09:58 Carmelita Linares, RN is Primary Nurse. tw2 10:00 Sung Rodríguez MD is Attending Physician. rn 10:01 EKG completed in triage. Results shown to MD. tw2 10:02 Patient maintains SpO2 saturation greater than 95% on room air. tw2 10:05 EKG done, by cadd technician. reviewed by Sung Rodríguez MD. at1 10:17 Missed attempt(s): 20 gauge in right antecubital area. Bleeding controlled, band aid tw2 applied, catheter tip intact. Missed attempt(s): 20 gauge in right antecubital area. Bleeding controlled, band aid applied, catheter tip intact. 10:20 Initial lab(s) drawn, by me, sent to lab. Inserted saline lock: 22 gauge in left dh3 antecubital area, using aseptic technique. Blood collected. 10:44 XRAY Chest (1 view) In Process Unspecified. EDMS 10:50 IV discontinued, intact, bleeding controlled, Pressure dressing applied, infiltration tw2 noted to LEFT ac, warm compress applied, approx 100 ml NS infused, provider notified, Tech Clair to look for site at this time. 10:56 Inserted saline lock: 22 gauge in right wrist, using aseptic technique. 3 11:31 Joey Melendez MD is Hospitalizing Provider. rn 11:56 Urine Microscopic Only Sent. tw2 12:43 Awaiting: unsuccessful attempted at calling report to floor at this time. tw2 12:44 No provider procedures requiring assistance completed. Patient admitted, IV remains in tw2 place. 22 g RIGHT wrist. 12:54 Report given to OLLIE Mondragon - asked me to notify provider at this time for BP, no further tw2 orders at this time per Dr. Rodríguez, once pt is finished in CT she can go to the floor at this time. Administered Medications: 10:25 Drug: NS 0.9% 500 ml Route: IV; Rate: bolus; Site: left antecubital; tw2 11:02 Follow up: IV Status: IV infiltrated; infiltration to LEFT ac, iv to right wrist at tw2 this time. 12:00 Drug: Aspirin Chewable Tablet 81 mg Route: PO; tw2 12:00 Follow up: Response: No adverse reaction tw2 Intake: Outcome: 11:31 Decision to Hospitalize by Provider. rn 13:10 Admitted to Med/surg accompanied by tech, via wheelchair, room 405, Report called to tw2 OLLIE Mondragon 13:10 Condition: stable 13:10 Instructed on the need for admit. 13:12 Patient left the ED. tw2 Signatures: Dispatcher [employer] EDGrace Norris Roman, MD MD rn Gonzales, Amanda, flat lock machine operator EKG Tat1 Carmelita Linares RN RN tw2 Caprice Pineda RN RN jl7 Clair Paniagua 3
[2019-08-10] MEDS ORDERED: ASPIRIN 81 MG CHEWABLE TABLET ONE (11:57)
[2019-08-10 12:02] LABS: Urine Blood TRACE (NEG); Urine Glucose NEGATIVE (NEG); Urine Protein NEGATIVE (NEG); Urine pH 5.5 (5.0-7.0)
[2019-08-10 12:04] LABS: Urine Bacteria <20 /HPF (<20); Urine Culture Reflex Order NOT NEEDED; Urine RBC <5 /HPF (NONE SEEN)
[2019-08-10] MEDS ORDERED: ONDANSETRON 4 MG/2 ML VIAL IV PRN (13:20)
--- NOTE | 2019-08-10 13:20 | RAD REPORT ---
EXAM DESCRIPTION: CT - Chest For Pe Angio - 08/10/2019 12:56 pm CLINICAL HISTORY: CHEST PAIN COMPARISON: Thorax W/ Con dated 02/01/2017; Chest Single View dated 08/10/2019 TECHNIQUE: Dynamically enhanced 3 mm thick images of the chest were obtained during administration o f approximately 150mL Isovue 370 IV contrast. Coronal and oblique MIP reconstruction images were gene rated and reviewed. Exam utilizes a protocol to evaluate the pulmonary arterial tree. All CT scans are performed using dose optimization technique as appropriate and may include automated exposure control or mA/KV adjustment according to patient size. FINDINGS: No pulmonary emboli are identified. The aorta as imaged shows no acute or suspicious finding. No pericardial thickening or effusion. No focal mass or consolidation. Interstitial opacification increased over prior imaging. This is favo red to be interstitial edema or infiltrate rather than a progressive fibrosis. No pleural effusion or pleural thickening. No mediastinal or hilar suspicious masses. No chest wall masses or abnormal axillary lymphadenopathy. IMPRESSION: No pulmonary emboli identified. Interstitial edema or infiltrate pattern. No focal consolidation or mass.
[2019-08-10] MEDS: cloNIDine HCl 0.1 MG TAB PO PRN ×2 (13:55→20:56)
[2019-08-10] MEDS: ACETAMINOPHEN 325 MG TABLET PO PRN ×2 (14:46→21:00)
--- NOTE | 2019-08-10 15:14 | EKG ---
Test Date: 2019-08-10 Test Time: 09:59:25 Livestock Handler: ROSEMARY MEASUREMENT RESULTS: Intervals: Rate: 55 TN: 170 QRSD: 106 QT: 436 QTc: 417 [place]: P: 49 TN: 170 QRS: -14 T: 15 INTERPRETIVE STATEMENTS: Sinus bradycardia with sinus arrhythmia Minimal voltage criteria for LVH, may be normal variant Borderline ECG Compared to ECG 03/08/2019 09:42:11 No significant changes Electronically Signed On 08-10-19 15:13:55 CDT by Franky Pineda
[2019-08-10] MEDS: FUROSEMIDE 40 MG/4 ML VIAL IV SCH (16:51)
[2019-08-10] MEDS ORDERED: INFLUENZA VACCINE (for 3y+) 0.5 ML DOSE IMVAC ONE (17:00)
[2019-08-10] MEDS ORDERED: METHOCARBAMOL 500 MG TAB PO PRN (18:14)
--- NOTE | 2019-08-10 18:20 | P.HP ---
Certification for Inpatient Patient admitted to: Observation With expected LOS: <2 Midnights Practitioner: I am a practitioner with admitting privileges, knowledge of patient current condition, hospital course, and medical plan of care. Services: Services provided to patient in accordance with Admission requirements found in Title 42 Section 412.3 of the Code of Federal Regulations Patient History Date of Service: 08/10/19 Reason for admission: WEAKNESS History of Present Illness: MS. SPAIN IS PATIENT WITH HTN, DJD, CAD, COMES WITH GEN WEAKNESS. TROPONIN BY ER WAS MILD HIGH. SHE HAS MILD INTERSTITIAL EDEMA IN LUNGS. Allergies No Known Allergies Allergy (Verified 08/10/19 14:48) Home Medications: Amlodipine Besylate [Norvasc] 10 mg PO DAILY 12/24/17 Clopidogrel Bisulfate [Plavix] 75 mg PO DAILY 12/24/17 Levothyroxine Sodium 75 mcg PO DAILY 12/24/17 Pantoprazole [Protonix Tab] 40 mg PO DAILY 12/24/17 Ezetimibe 10 mg PO DAILY 11/14/18 Metoprolol Succinate [Kapspargo Sprinkle] 100 mg PO BID 11/14/18 Tramadol HCl [Ultram] 50 mg PO DAILY 11/14/18 Aspirin Chewable [Aspirin Chewable*] 1 tab PO DAILY 08/10/19 Docusate [Colace Cap*] 1 tab PO DAILY 08/10/19 Duloxetine HCl 1 tab PO DAILY 08/10/19 Methocarbamol [Robaxin] 500 mg PO DAILYPRN PRN 08/10/19 Mirabegron [Myrbetriq] 50 mg PO DAILY 08/10/19 Mirtazapine [Remeron] 15 mg PO BEDTIME PRN 08/10/19 Montelukast [Singulair] 10 mg PO DAILY 08/10/19 Polyethylene Glycol 3350 [Miralax] 1 packet PO DAILY 08/10/19 - Past Medical/Surgical History Has patient received pneumonia vaccine in the past: Yes Diabetic: No -: HTN -: TIA -: GERD -: hypothyroidism -: CHF -: CVA- Right side weakness -: hysterectomy -: cholecystectomy -: bilateral knee sx -: tonsillectomy - Family History Mother -: Heart disease, Stroke Father -: Heart disease, Hypertension, Cancer - Social History Smoking Status: Never smoker Alcohol use: No CD- Drugs: No Caffeine use: Yes Place of Residence: Home Review of Systems 10-point ROS is otherwise unremarkable General: Weakness, Malaise Respiratory: Shortness of Breath Physical Examination - Vital Signs Temperature: 98.6 F Blood Pressure: 144/63 Pulse: 48 Respirations: 16 Pulse Ox (%): 98 - Physical Exam General: Acute distress HEENT: Atraumatic, PERRLA, Mucous membr. moist/pink, EOMI, Sclerae nonicteric Neck: Supple, 2+ carotid pulse no bruit, No LAD, Without JVD or thyroid abnormality Respiratory: Clear to auscultation bilaterally, Normal air movement Cardiovascular: Regular rate/rhythm, Normal S1 S2 Gastrointestinal: Normal bowel sounds, No tenderness Musculoskeletal: No tenderness Integumentary: No rashes Neurological: Normal gait, Normal speech, Normal strength at 5/5 x4 extr, Normal tone, Normal affect Lymphatics: No axilla or inguinal lymphadenopathy - Studies Laboratory Data (last 24 hrs) 08/10/19 10:20: Sodium 143, Potassium 3.9, BUN 23 H, Creatinine 1.46 H, Glucose 92 08/10/19 10:20: WBC 5.6, Hgb 11.9 L, Hct 36.3, Plt Count 235 Assessment and Plan - Problems (Diagnosis) (1) Fatigue Current Visit: Yes Status: Acute Plan: POSSIBLE CAD. QUETIONABLE CHF. WILL SEE RESPONSE TO DIURETICS. (2) Chest pain Onset Date: 03/06/16 Current Visit: No Status: Acute Plan: SHE HAD CHEST PAIN WITH NO RADIATION. CT ANGIOGRAM IS NEGATIVE. RESUME MEDICAL MX PER DR VARNER. (3) Hypertension Current Visit: No Status: Chronic Plan: DIFICULT TO CONTROL IT WA 190 SYSTOLIC TODAY. MEDS GIVEN. - Advance Directives Does patient have a Living Will: No Does patient have a Durable POA for Healthcare: No
--- NOTE | 2019-08-10 20:14 | CON ---
Introduction: 89-year-old woman. Chief Complaint: Shortness of breath and chest pain. Subjective: The patient has been feeling short of breath for several days. She has orthopnea and paroxysmal nocturnal dyspnea beginning weeks ago. The patient's cardiac cath was done, 10 months ago which showed diffuse moderate CAD with no focal stenosis. Ejection fraction was normal. Ms. Carrillo does not use tobacco. Medications: Her outpatient medications are Plavix, Protonix, amlodipine, levothyroxine, tramadol, metoprolol, montelukast, methocarbamol, mirtazapine, duloxetine, docusate, aspirin and mirabegron. Allergies: NO ALLERGIES ARE KNOWN. Physical Examination: Vital Signs: She is 5 feet 6 inches, 201 pounds. General: Obese. Alert, oriented, pleasant, not in distress. Lungs: Revealed crackles, especially in the right base, where there is known to be atelectasis from a raised right hemidiaphragm. Abdomen: Soft. Extremities: No edema. Laboratory Data: Troponin levels are 0.11 and 0.10. Her electrocardiogram is not available for viewing. Impression: The patient has mild diastolic congestive heart failure, acute on chronic. I think if she can be given a little more diuretics, put her on a low-sodium diet, she will be better, and she could resume her previous outpatient status. SHERWIN Voice ID: [id number] Report ID: [id number] NADIA
[2019-08-10] MEDS: METOPROLOL SUCCINATE 100 MG PO SCH (21:00)
[2019-08-10] MEDS: MIRTAZAPINE 15 MG TAB PO PRN (21:00)
[2019-08-11 04:08] LABS: Absolute Lymphocytes (CBC) 2.1 K/uL (0.7-4.9); Basophils % 0.8 % (0-1.3); Hematocrit 34.2 % (36.0-45.0); Lymphocytes % 26.7 % (15.3-44.8); MPV 8.5 fL (7.6-11.3); RBC Red Blood Cell Count 4.16 M/uL (3.86-4.86)
[2019-08-11 04:25] LABS: Potassium 3.5 mmol/L (3.5-5.1)
[2019-08-11 05:13] VITALS: BMI 32.2
[2019-08-11] MEDS: LEVOTHYROXINE SOD 0.075 MG TAB PO SCH (05:18)
[2019-08-11] MEDS: CLOPIDOGREL 75 MG TABLET PO SCH (08:12)
[2019-08-11] MEDS: ASPIRIN EC 81 MG TAB PO SCH (08:12)
[2019-08-11] MEDS: POLYETHYL GLY 3350 17 GM/DOSE PO SCH (08:12)
[2019-08-11] MEDS: EZETIMIBE 10 MG TAB PO SCH (08:12)
[2019-08-11] MEDS: DULOXETINE 30 MG CAP PO SCH (08:12)
[2019-08-11] MEDS: AMLODIPINE 10 MG TAB PO SCH (08:13)
[2019-08-11] MEDS: MONTELUKAST 10 MG TAB PO SCH (08:13)
[2019-08-11] MEDS: FUROSEMIDE 40 MG/4 ML VIAL IV SCH ×2 (08:13→17:00)
[2019-08-11] MEDS: DOCUSATE NA 100 MG CAP PO SCH (08:13)
[2019-08-11] MEDS: TRAMADOL HCL 50 MG TAB PO SCH (08:13)
[2019-08-11] MEDS: HOME MED 1 EA UNK (Mirabegron [Myrbetriq] 50 MG) PO SCH (08:14)
[2019-08-11] MEDS: PANTOPRAZOLE 40MG TABLET PO SCH (08:15)
[2019-08-11] MEDS: METOPROLOL SUCCINATE 100 MG PO SCH (08:16)
[2019-08-11] MEDS ORDERED: LIDOCAINE 4% PATCH TOP SCH (09:00)
--- NOTE | 2019-08-11 10:30 | PN ---
Date of Progress Note: 08/11/2019 Subjective: Ms. Carrillo today is continuing to have some midepigastric and throat pain that comes a nd goes and lasts a minute or 2 without any nausea, vomiting, or diaphoresis. Echocardiogram is pending for today. Catheterization films from October of 2018 reviewed. She had o nly some mild plaquing throughout. Her troponin is 0.08 and 0.11. Her BNP is 556. Creatinine is 1.46. She is bradycardic with a heart rate of 48. I would restart her Protonix. I would decrease her beta -isaias dose to 50 mg b.i.d. Continue her medical regimen. I doubt that her symptoms are related t o coronary artery disease. Certainly, Imdur 30 mg daily may be a good option. FLEX/ENIO Voice ID: [id number] Report ID: [id number]
[2019-08-11] MEDS: LIDOCAINE 4% PATCH TD SCH (11:25)
--- NOTE | 2019-08-11 12:09 | EKG ---
Test Date: 2019-08-11 Test Time: 07:50:42 Drywall Applicator: ROSEMARY MEASUREMENT RESULTS: Intervals: Rate: 46 IL: 170 QRSD: 104 QT: 486 QTc: 425 [place]: P: 54 IL: 170 QRS: -15 T: 19 INTERPRETIVE STATEMENTS: Marked sinus bradycardia Minimal voltage criteria for LVH, may be normal variant Abnormal ECG Compared to ECG 08/10/2019 09:59:25 Sinus arrhythmia no longer present Electronically Signed On 08-11-19 12:08:48 CDT by Ebenezer Pritchett
[2019-08-11] MEDS: METOPROLOL XL 50 MG TAB PO SCH (17:18)
[2019-08-11] MEDS: NA CHLORIDE 0.9% 250 ML IV SCH ×2 (17:40→21:00)
[2019-08-11] MEDS ORDERED: NA CHLORIDE 0.9% 1,000 ML IV SCH (18:00)
[2019-08-11] MEDS: MIRTAZAPINE 15 MG TAB PO PRN (21:40)
[2019-08-11] MEDS: ACETAMINOPHEN 325 MG TABLET PO PRN (21:41)
[2019-08-12] MEDS: NA CHLORIDE 0.9% 250 ML IV SCH
--- NOTE | 2019-08-12 00:41 | PN ---
Subjective: Ms. Carrillo is 89-year-old, is still weak, has some chest pain. Has neck pain, otherwi se does not seem in any kind of respiratory distress. Physical Examination: General: Blood pressure dropped down to 92/55 this evening after diuresis by the rural electrification engineer. Chest: Clear. Decreased breath sounds bilaterally. Heart: Regular. Abdomen: No guarding. No rebound. No rigidity. Laboratory Data: BUN is 22, creatinine 1.36, which is about the same as before. White count is norm al at 7,800. Assessment And Plan: Generalized debility. I do not see any major cardiac issue going on. She has been treated with mild CHF, but now if the blood pressure drops, I will stop the diuretics and I will give her a small dose of IV saline to bring the blood pressure up. Dr. Pritchett has reduced her bloo d pressure medication, metoprolol because of low pulse rate. He also understands the poor prognosis. He does not want any angiogram to be done because it was just done a year ago and did not show any major blockages. Prognosis guarded. Patient wants to go home, but not today and I am not sure wheth er she will be able to go home tomorrow on her own. She always needs some fdc assistance be cause she has severe multiple other medical problems like degenerative joint disease, [facility] recently and done reasonably well, but now she is 89, debilitated and g etting worse over time. RVD/MODL Voice ID: [id number] Report ID: [id number]
[2019-08-12] MEDS: METOPROLOL XL 50 MG TAB PO SCH (04:56)
[2019-08-12] MEDS: LEVOTHYROXINE SOD 0.075 MG TAB PO SCH (05:24)
[2019-08-12 08:09] VITALS: O2SAT 94
--- NOTE | 2019-08-12 08:17 | ECHO ---
HEIGHT: 5 ft 6 in WEIGHT: 199 lb 12.8 oz DATE OF STUDY: 08/11/[address]: Ebenezer Pritchett MD 2-DIMENSIONAL: YES M.MODE: YES DOPPLER: YES COLOR FLOW: YES TDS: NO PORTABLE: NO DEFINITY: NO BUBBLE STUDY: NO DIAGNOSIS: CHEST PAIN, CONGESTIVE HEART FAILURE CARDIAC HISTORY: CATHERIZATION: NO SURGERY: NO PROSTHETIC VALVE: NO PACEMAKER: NO MEASUREMENTS (cm) DIASTOLIC (NORMALS) SYSTOLIC (NORMALS) IVSd 0.9 (0.6-1.2) LA Diam 3.2 (1.9-4.0) LVEF 71% LVIDd 4.0 (3.5-5.7) LVIDs 2.4 (2.0-3.5) %FS 40% LVPWd 1.1 (0.6-1.2) Ao Diam 2.7 (2.0-3.7) 2 DIMENSIONAL ASSESSMENT: RIGHT ATRIUM: NORMAL LEFT ATRIUM: NORMAL RIGHT VENTRICLE: NORMAL LEFT VENTRICLE: NORMAL TRICUSPID VALVE: NORMAL MITRAL VALVE: NORMAL PULMONIC VALVE: NORMAL AORTIC VALVE: SCLEROSIS PERICARDIAL EFFUSION: NONE AORTIC ROOT: NORMAL LEFT VENTRICULAR WALL MOTION: NORMAL LEFT VENTRICULAR EJECTION FRACTION. DOPPLER/COLOR FLOW: MILD MITRAL AND TRICUSPID REGURGUITATION. NORMAL RIGHT VENTRICULA R SYSTOLIC PRESSURE. COMMENTS: NORMAL LEFT VENTRICULAR EJECTION FRACTION. DECREASED LEFT VENTRICULAR COMPLIANCE. MILD MITRAL AND TRICUSPID REGURGUITATION. AORTIC SCLEROSIS. NO CHANGE FROM 2018. TECHNOLOGIST: Cezar WAYNE
[2019-08-12] MEDS: ASPIRIN EC 81 MG TAB PO SCH (08:19)
[2019-08-12] MEDS: POLYETHYL GLY 3350 17 GM/DOSE PO SCH (08:19)
[2019-08-12] MEDS: CLOPIDOGREL 75 MG TABLET PO SCH (08:19)
[2019-08-12] MEDS: PANTOPRAZOLE 40MG TABLET PO SCH (08:19)
[2019-08-12] MEDS: TRAMADOL HCL 50 MG TAB PO SCH (08:20)
[2019-08-12] MEDS: DOCUSATE NA 100 MG CAP PO SCH (08:20)
[2019-08-12] MEDS: MONTELUKAST 10 MG TAB PO SCH (08:20)
[2019-08-12] MEDS: DULOXETINE 30 MG CAP PO SCH (08:21)
[2019-08-12] MEDS: EZETIMIBE 10 MG TAB PO SCH (08:21)
[2019-08-12] MEDS: AMLODIPINE 10 MG TAB PO SCH (08:21)
[2019-08-12] MEDS: FUROSEMIDE 40 MG/4 ML VIAL IV SCH (08:22)
[2019-08-12] MEDS: LIDOCAINE 4% PATCH TD SCH (08:22)
[2019-08-12] MEDS: HOME MED 1 EA UNK (Mirabegron [Myrbetriq] 50 MG) PO SCH (08:24)
[2019-08-12] MEDS ORDERED: ENSURE HIGH PROTEIN 237 ML CAN PO SCH (09:00)
[2019-08-12 12:32] VITALS: BP 138/62; TEMP 98.4
--- NOTE | 2019-08-12 22:07 | P.DS ---
Admission Date: 08/10/19 Discharge Date: 08/12/19 Disposition: [place] HOME/HOME HEALTH CARE Discharge Condition: FAIR Reason for Admission: WEAKNESS - Problems (1) Fatigue Status: Acute (2) Chest pain Onset Date: 03/06/16 Status: Acute (3) Hypertension Status: Chronic Brief History of Present Illness: MS. SPAIN IS PATIENT WITH HTN, DJD, CAD, COMES WITH GEN WEAKNESS. TROPONIN BY ER WAS MILD HIGH. SHE HAS MILD INTERSTITIAL EDEMA IN LUNGS. Hospital Course: MR. SPAIN HAD MILD DIASTOLIC DYSFUNCTION RELATED ACUTE HEART FAILURE. SHE IS DOING WELL WITH LASIX. HER BP DROPPED. I REDUCED DIURETICS AND DISCHARGED HER ON LASIX 20 MG AND SPIRONOLACTONE 25 MG DAILY. REDUCED HER METOPROLOL TO 50 MG PO BID BECAUSE OF BRADYACARDIA. SHE HAS WALKED WELL. SHE WILL GO HOME WITH [facility]. Vital Signs/Physical Exam: Temp Pulse Resp BP Pulse Ox 98.4 F 78 18 138/62 98 08/12/19 12:00 08/12/19 12:00 08/12/19 12:00 08/12/19 12:00 08/12/19 12:00 Laboratory Data at Discharge: WBC 7.8 K/uL (4.3-10.9) D 08/11/19 03:38 Hgb 11.4 g/dL (12.0-15.0) L 08/11/19 03:38 Hct 34.2 % (36.0-45.0) L 08/11/19 03:38 Plt Count 204 K/uL (152-406) 08/11/19 03:38 Sodium 145 mmol/L (136-145) 08/11/19 03:38 Potassium 3.5 mmol/L (3.5-5.1) 08/11/19 03:38 BUN 22 mg/dL (7-18) H 08/11/19 03:38 Creatinine 1.36 mg/dL (0.55-1.3) H 08/11/19 03:38 Glucose 98 mg/dL (74-106) 08/11/19 03:38 Troponin I 0.08 ng/mL (0.0-0.045) H 08/10/19 17:21 Home Medications: Amlodipine Besylate [Norvasc] 10 mg PO DAILY 12/24/17 Clopidogrel Bisulfate [Plavix*] 75 mg PO DAILY 12/24/17 Levothyroxine Sodium 75 mcg PO DAILY 12/24/17 Pantoprazole [Protonix Tab*] 40 mg PO DAILY 12/24/17 Ezetimibe 10 mg PO DAILY 11/14/18 Tramadol HCl [Ultram] 50 mg PO DAILY 11/14/18 Aspirin Chewable [Aspirin Chewable*] 1 tab PO DAILY 08/10/19 Docusate [Colace Cap*] 1 tab PO DAILY 08/10/19 Duloxetine HCl 1 tab PO DAILY 08/10/19 Methocarbamol [Robaxin*] 500 mg PO DAILYPRN PRN 08/10/19 Mirabegron [Myrbetriq] 50 mg PO DAILY 08/10/19 Mirtazapine [Remeron*] 15 mg PO BEDTIME PRN 08/10/19 Montelukast [Singulair] 10 mg PO DAILY 08/10/19 Polyethylene Glycol 3350 [Miralax] 1 packet PO DAILY 08/10/19 Furosemide 20 mg PO DAILY #90 tablet 08/11/19 Spironolactone 25 mg PO DAILY #90 tablet 08/11/19 Metoprolol Tartrate 50 mg PO BID #180 tablet 08/12/19 New Medications: Furosemide 20 mg PO DAILY #90 tablet Metoprolol Tartrate 50 mg PO BID #180 tablet Spironolactone 25 mg PO DAILY #90 tablet Followup: Joey Melendez MD [Primary Care Provider] - (call to schedule appointment)
== END 2019-08-12 12:15 | disposition home health service (06) ==
LOC: ER 09:45 → ERHOLD 11:46 → 4TH 12:51
PROVIDERS: ADMIT Internal Medicine; ATTEND Internal Medicine
DX: I50.31 Acute diastolic (congestive) heart failure (principal); R53.81 Other malaise; R00.1 Bradycardia, unspecified; R07.9 Chest pain, unspecified; I10 Essential (primary) hypertension; K21.9 Gastro-esophageal reflux disease without esophagitis; E03.9 Hypothyroidism, unspecified; R53.83 Other fatigue; Z23 Encounter for immunization
CPT/HCPCS: 93005 ×2; 93306; 85025 ×2; 80048 ×2; 36415; 84484 ×3; 83880; 71275; 71045; 90471; 97116 ×2; 97161; 97530 ×2; 96360; 99285; Q9967; J1940 ×4; Q2035; J7030; J7040; G0378 ×4; 81003; 81015

== ENCOUNTER 2019-08-16 14:54 | Emergency (ER) | payer OTHER, MEDICARE ==
[2019-08-16] MEDS ORDERED: PROMETHAZINE 25 MG/ML VIAL ONE (15:23)
[2019-08-16 15:46] LABS: Absolute Lymphocytes (CBC) 2.3 K/uL (0.7-4.9); Basophils % 0.9 % (0-1.3); Hematocrit 36.1 % (36.0-45.0); Lymphocytes % 33.2 % (15.3-44.8); MPV 8.3 fL (7.6-11.3); RBC Red Blood Cell Count 4.38 M/uL (3.86-4.86)
[2019-08-16 15:47] LABS: Protime INR 1.06
[2019-08-16 16:01] LABS: Albumin 3.6 g/dL (3.4-5.0); Bilirubin Direct 0.1 mg/dL (0-0.2); Bilirubin Total 0.4 mg/dL (0.2-1.0); Magnesium 2.1 mg/dL (1.8-2.4); Potassium 4.3 mmol/L (3.5-5.1); Protein, Total 7.3 g/dL (6.4-8.2); Troponin (Emerg Dept Use Only) 0.02 ng/mL (0.0-0.045)
--- NOTE | 2019-08-16 17:09 | RAD REPORT ---
EXAM DESCRIPTION: RAD - Chest Single View - 08/16/2019 4:29 pm CLINICAL HISTORY: CHEST PAIN Chest pain. COMPARISON: Chest Single View dated 08/10/2019; Chest Single View dated 03/08/2019; Chest Pa And Lat (2 Views) dated 07/30/2018; Chest Single View dated 12/25/2017; Chest For Pe Angio dated 08/10/2019 FINDINGS: Portable technique limits examination quality. The lungs are grossly clear. Mild elevation of the right hemidiaphragm is noted. The heart is normal in size. Tortuous thoracic aorta is seen. IMPRESSION: No acute intrathoracic process suspected.
[2019-08-16] MEDS ORDERED: FENTANYL CITR 100 MCG/2 ML ONE (17:10)
--- NOTE | 2019-08-16 17:22 | ER ---
Nurse's Notes [facility] Name: Nisha Carrillo Age: 89 yrs Sex: Female : 1930 Arrival Date: 08/16/2019 Time: 14:56 Bed 14 Private MD: Joey Melendez V Diagnosis: Chest pain, unspecified Presentation: 08/16 15:00 Presenting complaint: Patient states: Chest pain since 0800 this morning. States that aj1 she was recently admitted for chest pain and "fluid around my heart and lungs" and was discharged on Saturday. Patient also reports dizziness. Transition of care: patient was not received from another setting of care. Onset of symptoms was August 16, 2019 at 08:00. Risk Assessment: Do you want to hurt yourself or someone else? Patient reports no desire to harm self or others. Initial Sepsis Screen: Does the patient meet any 2 criteria? No. Patient's initial sepsis screen is negative. Does the patient have a suspected source of infection? No. Patient's initial sepsis screen is negative. Care prior to arrival: None. 15:00 Method Of Arrival: Wheelchair aj1 15:00 Acuity: SERGIO 3 aj1 Triage Assessment: 15:02 General: Appears in no apparent distress. uncomfortable, Behavior is calm, cooperative, aj1 appropriate for age. Pain: Pain currently is 5 out of 10 on a pain scale. Neuro: Level of Consciousness is awake, alert, obeys commands. Cardiovascular: Patient's skin is warm and dry. Respiratory: Airway is patent Respiratory effort is even, unlabored, Respiratory pattern is regular, symmetrical. Historical: - Allergies: 15:02 Codeine; aj1 - PMHx: 15:02 CHF; CVA; GERD; Hypertension; Hypothyroidism; aj1 - Immunization history:: Adult Immunizations up to date. - Social history:: Smoking status: Patient/guardian denies using tobacco. - Ebola Screening: : Patient denies travel to an Ebola-affected area in the 21 days before illness onset. Screenin:14 Abuse screen: Denies threats or abuse. Nutritional screening: No deficits noted. em Tuberculosis screening: No symptoms or risk factors identified. Fall Risk None identified. Assessment: 15:14 General: Appears in no apparent distress. comfortable, Behavior is calm, cooperative, em appropriate for age, Denies fever. Pain: Complains of pain in mid-sternal area Pain does not radiate. Pain currently is 5 out of 10 on a pain scale. Pain began since Saturday. Neuro: Level of Consciousness is awake, alert, obeys commands, Oriented to person, place, time, situation, Appropriate for age Speech is normal. Cardiovascular: Capillary refill < 3 seconds Patient's skin is warm and dry. Respiratory: Airway is patent Respiratory effort is even, unlabored, Respiratory pattern is regular, symmetrical, Breath sounds are clear bilaterally. Denies cough. GI: Reports nausea, vomiting. Derm: Skin is intact, is healthy with good turgor, Skin is pink, warm \\T\\ dry. Musculoskeletal: Capillary refill < 3 seconds, Range of motion: intact in all extremities. 16:03 Reassessment: Patient appears in no apparent distress at this time. Patient and/or em family updated on plan of care and expected duration. Pain level reassessed. Patient is alert, oriented x 3, equal unlabored respirations, skin warm/dry/pink. nausea has improved Patient states feeling better. 16:27 Reassessment: Patient appears in no apparent distress at this time. Patient and/or em family updated on plan of care and expected duration. Pain level reassessed. Patient is alert, oriented x 3, equal unlabored respirations, skin warm/dry/pink. reports chest tightness, provider notified. 17:39 Reassessment: family and patient concerned pt will fall due to dizziness, pt states was em discharged on Saturday without feeling better, family request for pt to be admitted until they figure out what is causing her symptoms, provider notified. 19:03 Reassessment: Patient appears in no apparent distress at this time. Patient and/or em family updated on plan of care and expected duration. Pain level reassessed. Patient is alert, oriented x 3, equal unlabored respirations, skin warm/dry/pink. Patient states feeling better. Vital Signs: 15:02 BP 166 / 75; Pulse 61; Resp 20; Temp 98.3; Pulse Ox 95% on R/A; Weight 90.26 kg (R); aj1 Height 5 ft. 6 in. (167.64 cm) (R); Pain 5/10; 16:04 BP 134 / 64; Pulse 60; Resp 18; Pulse Ox 98% on R/A; em 17:07 BP 128 / 65; Pulse 54; Resp 17; Pulse Ox 100% on R/A; Pain 5/10; em 17:31 BP 177 / 76 Supine; Pulse 57; em 17:31 BP 164 / 93 Sitting; Pulse 63; em 17:31 BP 123 / 70 Standing; Pulse 72; em 19:04 BP 149 / 69; Pulse 63; Resp 18; Pulse Ox 99% on R/A; em 15:02 Body Mass Index 32.12 (90.26 kg, 167.64 cm) aj1 ED Course: 14:56 Patient arrived in ED. rg4 14:56 Joey Melendez MD is Private Physician. rg4 15:02 Triage completed. aj1 15:02 Arm band placed on Patient placed in an exam room. aj1 15:03 Inge Celis FNP-C is [facility]. snw 15:03 Sung Rodríguez MD is Attending Physician. snw 15:14 Tadeo Santizo LVN is Primary Nurse. em 15:14 Patient has correct armband on for positive identification. Placed in gown. Bed in low em position. Call light in reach. Side rails up X2. Adult w/ patient. conveyor monitor on. Pulse ox on. NIBP on. 15:14 Patient maintains SpO2 saturation greater than 95% on room air. em 15:34 Initial lab(s) drawn, by me, sent to lab. EKG done, by ED staff. Inserted saline lock: lt1 22 gauge in right wrist, using aseptic technique. 16:30 XRAY Chest (1 view) In Process Unspecified. EDMS 17:20 Joey Melendez MD is Referral Physician. snw 19:02 No provider procedures requiring assistance completed. IV discontinued, intact, em bleeding controlled, No redness/swelling at site. Pressure dressing applied. Administered Medications: 15:42 Drug: Phenergan 6.25 mg Route: IVP; Site: right wrist; iw 16:04 Follow up: Response: No adverse reaction; Nausea is decreased em 17:14 Drug: fentaNYL (PF) 25 mcg Route: IVP; Site: right wrist; iw 17:34 Follow up: Response: No adverse reaction; Pain is decreased em Outcome: 17:21 Discharge ordered by . snw 19:02 Discharged to home via wheelchair, with family. em 19:02 Condition: good 19:02 Discharge instructions given to patient, family, Instructed on discharge instructions, follow up and referral plans. medication usage, Demonstrated understanding of instructions, follow-up care, medications, Prescriptions given X 1. 19:05 Patient left the ED. em Signatures: Dispatcher [employer] Yanira Pearce RN RN aj1 Inge Celis, PROGRAM EVALUATOR-C PROGRAM EVALUATOR-Csnw Tadeo Santizo, DRAW FURNACE TENDER DRAW FURNACE TENDER Grecia Henry, Kenna Allen RN rg4 Nichelle Sam 1
--- NOTE | 2019-08-16 17:22 | EDPHYS ---
Physician Documentation [facility] Name: Nisha Carrillo Age: 89 yrs Sex: Female : 1930 Arrival Date: 08/16/2019 Time: 14:56 Bed 14 Private MD: Joey Melendez V ED Physician Sung Rodríguez HPI: 08/16 16:17 This 89 yrs old Black Female presents to ER via Wheelchair with complaints of Chest snw Pain. 16:17 Onset: The symptoms/episode began/occurred 1 week(s) ago, and became persistent. snw Associated signs and symptoms: Pertinent positives: shortness of breath, nausea. Modifying factors: The patient symptoms are alleviated by nothing. The patient has experienced similar episodes in the past. The patient has been recently seen by a physician: the patient's primary care provider, The patient has been recently been admitted at [facility], was discharged earlier this week, for similar complaints, but despite evaluation and treatment the patient has continued symptoms. Historical: - Allergies: 15:02 Codeine; aj1 - PMHx: 15:02 CHF; CVA; GERD; Hypertension; Hypothyroidism; aj1 - Immunization history:: Adult Immunizations up to date. - Social history:: Smoking status: Patient/guardian denies using tobacco. - Ebola Screening: : Patient denies travel to an Ebola-affected area in the 21 days before illness onset. ROS: 16:15 Constitutional: Negative for fever, chills, and weight loss, Eyes: Negative for injury, snw pain, redness, and discharge, ENT: Negative for injury, pain, and discharge, Neck: Negative for injury, pain, and swelling. 16:15 Back: Negative for injury and pain, : Negative for injury, bleeding, discharge, and swelling, MS/Extremity: Negative for injury and deformity, Skin: Negative for injury, rash, and discoloration. 16:15 Cardiovascular: Positive for chest pain. 16:15 Respiratory: Positive for shortness of breath, at rest. 16:15 Abdomen/GI: Positive for nausea. 16:15 Neuro: Positive for dizziness. Exam: 16:15 Head/Face: Normocephalic, atraumatic. Eyes: Pupils equal round and reactive to light, snw extra-ocular motions intact. Lids and lashes normal. Conjunctiva and sclera are non-icteric and not injected. Cornea within normal limits. Periorbital areas with no swelling, redness, or edema. ENT: Nares patent. No nasal discharge, no septal abnormalities noted. Tympanic membranes are normal and external auditory canals are clear. Oropharynx with no redness, swelling, or masses, exudates, or evidence of obstruction, uvula midline. Mucous membranes moist. Neck: Trachea midline, no thyromegaly or masses palpated, and no cervical lymphadenopathy. Supple, full range of motion without nuchal rigidity, or vertebral point tenderness. No Meningismus. Chest/axilla: Normal chest wall appearance and motion. Nontender with no deformity. No lesions are appreciated. Cardiovascular: Regular rate and rhythm with a normal S1 and S2. No gallops, murmurs, or rubs. Normal PMI, no JVD. No pulse deficits. Respiratory: Lungs have equal breath sounds bilaterally, clear to auscultation and percussion. No rales, rhonchi or wheezes noted. No increased work of breathing, no retractions or nasal flaring. Abdomen/GI: Soft, non-tender, with normal bowel sounds. No distension or tympany. No guarding or rebound. No evidence of tenderness throughout. Back: No spinal tenderness. No costovertebral tenderness. Full range of motion. Skin: Warm, dry with normal turgor. Normal color with no rashes, no lesions, and no evidence of cellulitis. MS/ Extremity: Pulses equal, no cyanosis. Neurovascular intact. Full, normal range of motion. Neuro: Awake and alert, GCS 15, oriented to person, place, time, and situation. Cranial nerves II-XII grossly intact. Motor strength 5/5 in all extremities. Sensory grossly intact. Cerebellar exam normal. Normal gait. Psych: Awake, alert, with orientation to person, place and time. Behavior, mood, and affect are within normal limits. 16:15 Constitutional: The patient appears awake, obese. Vital Signs: 15:02 BP 166 / 75; Pulse 61; Resp 20; Temp 98.3; Pulse Ox 95% on R/A; Weight 90.26 kg (R); aj1 Height 5 ft. 6 in. (167.64 cm) (R); Pain 5/10; 16:04 BP 134 / 64; Pulse 60; Resp 18; Pulse Ox 98% on R/A; em 17:07 BP 128 / 65; Pulse 54; Resp 17; Pulse Ox 100% on R/A; Pain 5/10; em 17:31 BP 177 / 76 Supine; Pulse 57; em 17:31 BP 164 / 93 Sitting; Pulse 63; em 17:31 BP 123 / 70 Standing; Pulse 72; em 19:04 BP 149 / 69; Pulse 63; Resp 18; Pulse Ox 99% on R/A; em 15:02 Body Mass Index 32.12 (90.26 kg, 167.64 cm) aj1 MDM: 15:03 Patient medically screened. snw 17:19 Data reviewed: vital signs, nurses notes. Data interpreted: Pulse oximetry: on room air snw is 100 %. Interpretation: normal. Counseling: I had a detailed discussion with the patient and/or guardian regarding: the historical points, exam findings, and any diagnostic results supporting the discharge/admit diagnosis, lab results, radiology results, the need for outpatient follow up, to return to the emergency department if symptoms worsen or persist or if there are any questions or concerns that arise at home. Response to treatment: the patient's symptoms have mildly improved after treatment. Special discussion: Based on the patient's history, exam, and Dx evaluation, there is no indication for emergent intervention or inpatient Tx. It is understood by the patient/guardian that if the Sx's persist or worsen they need to return immediately for re-evaluation. I have referred the patient to see his PCP for further evaluation of high blood pressure. Based on the history and exam findings, there is no indication for further emergent testing or inpatient evaluation. I discussed with the patient/guardian the need to see the primary care provider for further evaluation of the symptoms. 08/16 15:04 Order name: Basic Metabolic Panel; Complete Time: 16:15 snw 08/16 15:04 Order name: CBC with Diff; Complete Time: 15:59 snw 08/16 15:04 Order name: LFT's; Complete Time: 16:15 snw 08/16 15:04 Order name: Magnesium; Complete Time: 16:15 snw 08/16 15:04 Order name: NT PRO-BNP; Complete Time: 16:15 snw 08/16 15:04 Order name: PT-INR; Complete Time: 15:59 snw 08/16 15:04 Order name: Troponin (emerg Dept Use Only); Complete Time: 16:15 snw 08/16 15:04 Order name: XRAY Chest (1 view); Complete Time: 17:18 snw 08/16 15:04 Order name: EKG; Complete Time: 15:05 snw 08/16 15:04 Order name: Cardiac monitoring; Complete Time: 15:19 snw 08/16 15:04 Order name: EKG - Nurse/Tech; Complete Time: 15:18 snw 08/16 15:04 Order name: IV Saline Lock; Complete Time: 15:19 snw 08/16 15:04 Order name: Labs collected and sent; Complete Time: 15:19 snw 08/16 15:04 Order name: O2 Per Protocol; Complete Time: 15:19 snw 08/16 15:04 Order name: O2 Sat Monitoring; Complete Time: 15:19 snw Administered Medications: 15:42 Drug: Phenergan 6.25 mg Route: IVP; Site: right wrist; iw 16:04 Follow up: Response: No adverse reaction; Nausea is decreased em 17:14 Drug: fentaNYL (PF) 25 mcg Route: IVP; Site: right wrist; iw 17:34 Follow up: Response: No adverse reaction; Pain is decreased em Disposition: 08/17 07:12 Co-signature as Attending Physician, Sung Rodríguez MD. rn Disposition: 08/16/19 17:21 Discharged to Home. Impression: Chest pain, unspecified. - Condition is Stable. - Discharge Instructions: Nonspecific Chest Pain, Hypertension. - Prescriptions for Zofran 4 mg Oral Tablet - take 1 tablet by ORAL route every 12 hours As needed; 6 tablet. - Medication Reconciliation Form, Thank You Letter, Antibiotic Education, Prescription Opioid Use form. - Follow up: Joey Melendez MD; When: Tomorrow; Reason: Recheck today's complaints, Continuance of care, Re-evaluation by your physician. Follow up: Emergency Department; When: As needed; Reason: Worsening of condition. Signatures: Dispatcher [employer] Yanira Pearce RN RN aj1 Inge Celis, DIRECTOR ONLINE MARKETING-C DIRECTOR ONLINE MARKETING-Csnw Tadeo Santizo, HOOKER LASTER HOOKER LASTER em Grecia Henry RN RN iw Nieto, Roman, MD MD fitter and turner: (The following items were deleted from the chart) 08/16 19:05 17:21 08/16/2019 17:21 Discharged to Home. Impression: Chest pain, unspecified. em Condition is Stable. Forms are Medication Reconciliation Form, Thank You Letter, Antibiotic Education, Prescription Opioid Use. Follow up: Joey Melendez; When: Tomorrow; Reason: Recheck today's complaints, Continuance of care, Re-evaluation by your physician. Follow up: Emergency Department; When: As needed; Reason: Worsening of condition. snw
[2019-08-16 19:13] VITALS: TEMP 98.3
[2019-08-16 19:19] VITALS: BP 149/69; O2SAT 99
--- NOTE | 2019-08-17 07:52 | EKG ---
Test Date: 2019-08-16 Test Time: 15:10:06 Heavy Equipment Operator/Paver: NICOLETTE MEASUREMENT RESULTS: Intervals: Rate: 56 TX: 160 QRSD: 100 QT: 430 QTc: 414 Outlook: P: 44 TX: 160 QRS: -29 T: 17 INTERPRETIVE STATEMENTS: Sinus bradycardia Moderate voltage criteria for LVH, may be normal variant Borderline ECG Compared to ECG 08/11/2019 07:50:42 No significant changes Electronically Signed On 08-17-19 07:51:33 CDT by Franky Pineda
== END 2019-08-16 19:05 | disposition home or self-care (01) ==
LOC: ER 14:54
DX: R07.9 Chest pain, unspecified (principal); I10 Essential (primary) hypertension; Z88.5 Allergy status to narcotic agent
CPT/HCPCS: 93005; 85025; 80048; 36415; 83735; 85610; 80076; 84484; 83880; 71045; 96375; 96374; 99285; J2550; J3010

== ENCOUNTER 2019-11-07 13:34 | Emergency (ER) | payer OTHER, MEDICARE ==
--- OUTSIDE RECORDS SUMMARY | 2019-11-07 13:35 | XMS REPORT ---
:1930 [facility] Address [address] [place] [address] Dr. Chirinos [address] [place] [id number] Care Team Providers Name Role Phone Unavailable Unavailable Unavailable Problems This patient has no known problems. Allergies, Adverse Reactions, Alerts This patient has no known allergies or adverse reactions. Medications This patient has no known medications.
--- NOTE | 2019-11-07 16:25 | RAD REPORT ---
EXAM DESCRIPTION: [place] And [place] (2 Views)11/07/2019 2:58 pm CLINICAL HISTORY: Cough COMPARISON: July 2019 FINDINGS: The lungs appear clear of acute infiltrate. The heart is mildly enlarged. The aorta is to rtuous/ IMPRESSION: No acute abnormalities displayed
--- NOTE | 2019-11-07 16:54 | EDPHYS ---
Physician Documentation [facility] Name: Nisha Carrillo Age: 89 yrs Sex: Female : 1930 Arrival Date: 11/07/2019 Time: 13:36 Bed 23 Private MD: Joey Melendez V ED Physician Chaz Bauer HPI: 11/07 14:25 This 89 yrs old Black Female presents to ER via Wheelchair with complaints of Flu pm1 Symptoms. 14:25 The patient or guardian reports cough, with productive sputum, that is white, Nasal pm1 congestion. Onset: The symptoms/episode began/occurred 4 day(s) ago. Severity of symptoms: in the emergency department the symptoms are actually worse. Modifying factors: The symptoms are alleviated by nothing, the symptoms are aggravated by nothing. Associated signs and symptoms: Pertinent positives: Headache, Chest pain with coughing, ear pain, Nasal congestion, sinus pressure, post nasal drainage, and subjective fever. Patient concerned that she might have the flu and would like a xray to make sure that she does not have pneumonia. Saw her PCP Dr. Melendez on Saturday for allergies and sinus congestion. Patient reports that symptoms have worsened with difficulty breathing through her nose, nasal congestion, subjective fever, and coughing white sputum with post nasal drainage. Historical: - Allergies: 13:45 Codeine; iw - Home Meds: 13:45 amlodipine 10 mg tab 1 tab once daily [Active]; aspirin 81 mg Oral TbEC 1 tab once iw daily [Active]; clopidogrel 75 mg Oral tab 1 tab once daily [Active]; duloxetine Oral once daily [Active]; Klor-Con 10 10 mEq Oral TbER 1 tab once daily [Active]; Lasix 20 mg Oral tab 1 tab once daily [Active]; levothyroxine 75 mcg tab [Active]; losartan 100 mg Oral tab 1 tab once daily [Active]; pantoprazole 40 mg Oral TbEC 1 tab once daily [Active]; metoprolol tartrate 100 mg Oral tab 1 tab 2 times per day [Active]; Zytiga 250 mg Oral tab [Active]; mirabegron Oral [Active]; - PMHx: 13:45 CHF; CVA; GERD; Hypertension; Hypothyroidism; iw - PSHx: 13:45 neck; Knee surgery; Bladder suspension; iw - Immunization history:: Adult Immunizations up to date. - Social history:: Smoking status: Patient denies any tobacco usage or history of. - Ebola Screening: : Patient negative for fever greater than or equal to 101.5 degrees Fahrenheit, and additional compatible Ebola Virus Disease symptoms Patient denies exposure to infectious person Patient denies travel to an Ebola-affected area in the 21 days before illness onset No symptoms or risks identified at this time. ROS: 14:25 Eyes: Negative for injury, pain, redness, and discharge. pm1 14:25 Neck: Negative for injury, pain, and swelling. 14:25 Back: Negative for injury and pain, : Negative for injury, bleeding, discharge, and swelling, MS/Extremity: Negative for injury and deformity, Skin: Negative for injury, rash, and discoloration. 14:25 Constitutional: Positive for subjective fever, Negative for body aches, poor PO intake. 14:25 ENT: Positive for ear pain, nasal discharge, sinus congestion, sinus pain, sore throat. 14:25 Cardiovascular: Positive for chest pain, with cough, Negative for edema, orthopnea, palpitations. 14:25 Respiratory: Positive for cough, with white sputum, Negative for shortness of breath, wheezing. 14:25 Neuro: Positive for headache, Negative for dizziness, numbness. pm1 Exam: 14:25 Constitutional: This is a well developed, well nourished patient who is awake, alert, pm1 and in no acute distress. 14:25 Eyes: Pupils equal round and reactive to light, extra-ocular motions intact. Lids and lashes normal. Conjunctiva and sclera are non-icteric and not injected. Cornea within normal limits. Periorbital areas with no swelling, redness, or edema. ENT: Nares patent. No nasal discharge, no septal abnormalities noted. Tympanic membranes are normal and external auditory canals are clear. Oropharynx with no redness, swelling, or masses, exudates, or evidence of obstruction, uvula midline. Mucous membranes moist. Neck: Trachea midline, no thyromegaly or masses palpated, and no cervical lymphadenopathy. Supple, full range of motion without nuchal rigidity, or vertebral point tenderness. No Meningismus. Chest/axilla: Normal chest wall appearance and motion. Nontender with no deformity. No lesions are appreciated. Cardiovascular: Regular rate and rhythm with a normal S1 and S2. No gallops, murmurs, or rubs. No pulse deficits. Respiratory: Lungs have equal breath sounds bilaterally, clear to auscultation and percussion. No rales, rhonchi or wheezes noted. No increased work of breathing, no retractions or nasal flaring. Abdomen/GI: Soft, non-tender, with normal bowel sounds. No distension or tympany. No guarding or rebound. No evidence of tenderness throughout. Back: No spinal tenderness. No costovertebral tenderness. Full range of motion. Skin: Warm, dry with normal turgor. Normal color with no rashes, no lesions, and no evidence of cellulitis. MS/ Extremity: Pulses equal, no cyanosis. Neurovascular intact. Full, normal range of motion. 14:25 Head/face: Sinus tenderness, that is moderate, is located over the left frontal sinus, right maxillary sinus and left maxillary sinus. 14:25 Neuro: Orientation: is normal, Motor: is normal, moves all fours. Vital Signs: 13:45 BP 182 / 85; Pulse 58; Resp 18; Temp 99.3; Pulse Ox 97% on R/A; Weight 91.63 kg; Height iw 5 ft. 6 in. (167.64 cm); Pain 6/10; 15:48 BP 178 / 83; Pulse 56; Resp 18; Pulse Ox 98% on R/A; aj1 16:30 BP 183 / 95; Pulse 62; Resp 18; Pulse Ox 97% ; aj1 17:30 BP 193 / 75; Pulse 58; Resp 18; Pulse Ox 99% ; aj1 18:30 BP 188 / 82; Pulse 59; Resp 20; Pulse Ox 97% ; aj1 13:45 Body Mass Index 32.60 (91.63 kg, 167.64 cm) iw MDM: 14:12 Patient medically screened. pm1 16:45 Data reviewed: vital signs. Data interpreted: Pulse oximetry: on room air is 98 %. pm1 Interpretation: normal. 16:51 Counseling: I had a detailed discussion with the patient and/or guardian regarding: the pm1 historical points, exam findings, and any diagnostic results supporting the discharge/admit diagnosis, lab results, radiology results, the need for outpatient follow up, to return to the emergency department if symptoms worsen or persist or if there are any questions or concerns that arise at home. 11/07 14:20 Order name: Flu; Complete Time: 15:27 [facility] 11/07 14:34 Order name: Strep pm1 11/07 14:20 Order name: Chest Pa And Lat (2 Views) XRAY; Complete Time: 16:26 [facility] 11/07 14:34 Order name: Group A Streptococcus Rapid Sc; Complete Time: 15:27 [facility] 11/07 15:03 Order name: Throat Culture [facility] 11/07 14:20 Order name: EKG - Nurse/Tech; Complete Time: 14:37 aj Administered Medications: 17:30 Drug: Rocephin (cefTRIAXone) 1 grams Route: IM; Site: left gluteus; aj1 18:30 Follow up: Response: No adverse reaction aj1 Disposition: 11/08 15:18 Co-signature as Attending Physician, Chaz Bauer MD. ma2 Disposition: 11/07/19 16:53 Discharged to Home. Impression: Acute sinusitis. - Condition is Stable. - Discharge Instructions: Sinusitis, Adult. - Prescriptions for Amoxicillin 500 mg Oral Capsule - take 1 capsule by ORAL route every 8 hours for 10 days; 30 tablet. Bromfed DM 2- 30-10 mg/5 mL Oral syrup - take 10 milliliter by ORAL route every 4 hours As needed; 240 milliliter. - Medication Reconciliation Form, Thank You Letter, Antibiotic Education, Prescription Opioid Use form. - Follow up: Emergency Department; When: As needed; Reason: Worsening of condition. Follow up: Private Physician; When: 2 - 3 days; Reason: Recheck today's complaints, Continuance of care, Re-evaluation by your physician. - Problem is new. - Symptoms have improved. Signatures: Dispatcher [employer] EDVA Yanira Mart RN RN aj1 Grecia Henry RN RN iw Marinas, Patrick, LAW TUTOR LAW TUTOR pm1 Chaz Bauer MD MD ma2 Corrections: (The following items were deleted from the chart) 11/07 18:35 16:53 11/07/2019 16:53 Discharged to Home. Impression: Acute sinusitis. Condition is aj1 Stable. Forms are Medication Reconciliation Form, Thank You Letter, Antibiotic Education, Prescription Opioid Use. Follow up: Emergency Department; When: As needed; Reason: Worsening of condition. Follow up: Private Physician; When: 2 - 3 days; Reason: Recheck today's complaints, Continuance of care, Re-evaluation by your physician. Problem is new. Symptoms have improved. pm1 21:31 14:25 Back: Negative for injury and pain, : Negative for injury, bleeding, discharge, pm1 and swelling, MS/Extremity: Negative for injury and deformity, Skin: Negative for injury, rash, and discoloration, Neuro: Negative for headache, weakness, numbness, tingling, and seizure, pm1
--- NOTE | 2019-11-07 16:54 | ER ---
Nurse's Notes [facility] Name: Nisha Carrillo Age: 89 yrs Sex: Female : 1930 Arrival Date: 11/07/2019 Time: 13:36 Bed 23 Private MD: Joey Melendez V Diagnosis: Acute sinusitis Presentation: 11/07 13:42 Presenting complaint: Patient states: c/o headache and pain down to chest, ears hurt, iw feels like she can't breathe, thinks she has the flu, +cough, +fever at home. Transition of care: patient was not received from another setting of care. Onset of symptoms was November 04, 2019. Risk Assessment: Do you want to hurt yourself or someone else? Patient reports no desire to harm self or others. Initial Sepsis Screen: Does the patient meet any 2 criteria? No. Patient's initial sepsis screen is negative. Does the patient have a suspected source of infection? No. Patient's initial sepsis screen is negative. Care prior to arrival: None. 13:42 Method Of Arrival: Wheelchair iw 13:42 Acuity: SERGIO 3 iw Historical: - Allergies: 13:45 Codeine; iw - Home Meds: 13:45 amlodipine 10 mg tab 1 tab once daily [Active]; aspirin 81 mg Oral TbEC 1 tab once iw daily [Active]; clopidogrel 75 mg Oral tab 1 tab once daily [Active]; duloxetine Oral once daily [Active]; Klor-Con 10 10 mEq Oral TbER 1 tab once daily [Active]; Lasix 20 mg Oral tab 1 tab once daily [Active]; levothyroxine 75 mcg tab [Active]; losartan 100 mg Oral tab 1 tab once daily [Active]; pantoprazole 40 mg Oral TbEC 1 tab once daily [Active]; metoprolol tartrate 100 mg Oral tab 1 tab 2 times per day [Active]; Zytiga 250 mg Oral tab [Active]; mirabegron Oral [Active]; - PMHx: 13:45 CHF; CVA; GERD; Hypertension; Hypothyroidism; iw - PSHx: 13:45 neck; Knee surgery; Bladder suspension; iw - Immunization history:: Adult Immunizations up to date. - Social history:: Smoking status: Patient denies any tobacco usage or history of. - Ebola Screening: : Patient negative for fever greater than or equal to 101.5 degrees Fahrenheit, and additional compatible Ebola Virus Disease symptoms Patient denies exposure to infectious person Patient denies travel to an Ebola-affected area in the 21 days before illness onset No symptoms or risks identified at this time. Screenin:20 Abuse screen: Denies threats or abuse. Denies injuries from another. Nutritional aj1 screening: No deficits noted. Tuberculosis screening: No symptoms or risk factors identified. 18:34 Fall Risk None identified. aj1 Assessment: 14:20 General: Appears in no apparent distress. comfortable, Behavior is calm, cooperative, aj1 appropriate for age. Pain: Complains of pain in anterior aspect of left upper chest Pain radiates to left arm Pain currently is 8 out of 10 on a pain scale. Quality of pain is described as aching. Neuro: Level of Consciousness is awake, alert, obeys commands, Oriented to person, place, time, situation. Cardiovascular: Reports chest pain, shortness of breath, Heart tones S1 S2 present Patient's skin is warm and dry. Respiratory: Reports shortness of breath on exertion cough that is productive, Airway is patent Respiratory effort is even, unlabored, Respiratory pattern is regular, symmetrical. GI: No signs and/or symptoms were reported involving the gastrointestinal system. : No signs and/or symptoms were reported regarding the genitourinary system. EENT: Reports nasal congestion nasal discharge ear pain. Derm: No signs and/or symptoms reported regarding the dermatologic system. Skin is pink, warm \T\ dry. normal. Musculoskeletal: No signs and/or symptoms reported regarding the musculoskeletal system. Circulation, motion, and sensation intact. 15:33 Reassessment: Patient appears in no apparent distress at this time. No changes from aj1 previously documented assessment. Patient and/or family updated on plan of care and expected duration. Pain level reassessed. Patient is alert, oriented x 3, equal unlabored respirations, skin warm/dry/pink. 16:30 Reassessment: Patient appears in no apparent distress at this time. No changes from aj1 previously documented assessment. Patient and/or family updated on plan of care and expected duration. Pain level reassessed. Patient is alert, oriented x 3, equal unlabored respirations, skin warm/dry/pink. 17:30 Reassessment: Patient appears in no apparent distress at this time. No changes from aj1 previously documented assessment. Patient and/or family updated on plan of care and expected duration. Pain level reassessed. Patient is alert, oriented x 3, equal unlabored respirations, skin warm/dry/pink. 18:31 Reassessment: Patient appears in no apparent distress at this time. No changes from aj1 previously documented assessment. Patient and/or family updated on plan of care and expected duration. Pain level reassessed. Patient is alert, oriented x 3, equal unlabored respirations, skin warm/dry/pink. Vital Signs: 13:45 BP 182 / 85; Pulse 58; Resp 18; Temp 99.3; Pulse Ox 97% on R/A; Weight 91.63 kg; Height iw 5 ft. 6 in. (167.64 cm); Pain 6/10; 15:48 BP 178 / 83; Pulse 56; Resp 18; Pulse Ox 98% on R/A; aj1 16:30 BP 183 / 95; Pulse 62; Resp 18; Pulse Ox 97% ; aj1 17:30 BP 193 / 75; Pulse 58; Resp 18; Pulse Ox 99% ; aj1 18:30 BP 188 / 82; Pulse 59; Resp 20; Pulse Ox 97% ; aj1 13:45 Body Mass Index 32.60 (91.63 kg, 167.64 cm) iw ED Course: 13:36 Patient arrived in ED. mr 13:36 Joey Melendez MD is Private Physician. mr 13:43 Triage completed. iw 13:45 Arm band placed on. iw 13:49 Yanira Mart, OLLIE is Primary Nurse. aj1 13:53 Amanuel Oseguera NP is PHCP. pm1 13:53 Chaz Bauer MD is Attending Physician. pm1 14:20 Patient has correct armband on for positive identification. Bed in low position. Call aj1 light in reach. 14:20 No provider procedures requiring assistance completed. aj1 14:59 Chest Pa And Lat (2 Views) XRAY In Process Unspecified. EDMS 18:34 Patient did not have IV access during this emergency room visit. aj1 Administered Medications: 17:30 Drug: Rocephin (cefTRIAXone) 1 grams Route: IM; Site: left gluteus; aj1 18:30 Follow up: Response: No adverse reaction aj1 Outcome: 16:53 Discharge ordered by . pm1 18:34 Discharged to home via wheelchair. aj1 18:34 Condition: good 18:34 Discharge instructions given to patient, Instructed on discharge instructions, follow up and referral plans. medication usage, Demonstrated understanding of instructions, follow-up care, medications. 18:35 Patient left the ED. aj1 Signatures: Dispatcher [employer] EDYanira Nolasco RN RN aj1 Grace Ernandez Irene, RN RN iw Amanuel Oseguera, CYLINDER PRESS FEEDER CYLINDER PRESS FEEDER pm1 Corrections: (The following items were deleted from the chart) 13:46 13:45 BP 182 / 85; Pulse 58bpm; Resp 18bpm; Pulse Ox 97% RA; Temp 99.3F; 91.63 kg; iw Height 5 ft. 6 in.; BMI: 32.6; iw
[2019-11-07] MEDS ORDERED: CEFTRIAXONE 1000 MG/VIAL ONE (17:23)
[2019-11-07] MEDS ORDERED: LIDOCAINE 1% MPF 5 ML VIAL ONE (17:23)
[2019-11-07 19:15] VITALS: TEMP 99.3
[2019-11-07 19:21] VITALS: BP 188/82; O2SAT 97
--- NOTE | 2019-11-08 14:01 | EKG ---
Test Date: 2019-11-07 Test Time: 14:21:43 Adult Care Provider: LMT MEASUREMENT RESULTS: Intervals: Rate: 58 NH: 170 QRSD: 100 QT: 444 QTc: 435 [place]: P: 46 NH: 170 QRS: -24 T: 9 INTERPRETIVE STATEMENTS: Sinus bradycardia with marked sinus arrhythmia Moderate voltage criteria for LVH, may be normal variant Borderline ECG Compared to ECG 08/16/2019 15:10:06 No significant changes Electronically Signed On 11-08-19 13:59:03 ABSORPTION AND ADSORPTION ENGINEER by Ebenezer Pritchett
== END 2019-11-07 18:35 | disposition home or self-care (01) ==
LOC: ER 13:34
DX: J01.90 Acute sinusitis, unspecified (principal); R51 Headache; I10 Essential (primary) hypertension; E03.9 Hypothyroidism, unspecified; I50.9 Heart failure, unspecified; Z79.82 Long term (current) use of aspirin; Z88.5 Allergy status to narcotic agent
CPT/HCPCS: 71046; 87070; 87081; 87804; 93005; 96372; 99283

== ENCOUNTER 2020-06-10 09:09 | Observation (INO) | payer OTHER, MEDICARE ==
--- OUTSIDE RECORDS SUMMARY | 2020-06-10 09:50 | XMS REPORT | Continuity of Care Document ---
:1930 Author Organization [facility] t Address 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[place] spondylosi spondylosi 0-26 Me thodi s with s with 00:00: st myelopathy myelopathy 00 Allergies, Adverse Reactions, Alerts Allergy Allergy Status Severity Reaction(s) Onset Inactive Treating Comm ents Source Name Type Date Date Clinician Codejaz Propensi Active GI [place] ty to Intolerance Metho di adverse st reaction s to drug Family History Family Member Diagnosis Comments Start Date Stop Date Source Natural brother Cancer [facility] Family member Diabetes [place] [facility] Social History Social Habit Start Date Stop Date Quantity Comments Source Sex Assigned At [facility] ethodist Alcohol intake 2018-12-26 2018-12-26 Current [facility] thodist 00:00:00 00:00:00 non-drinker of alcohol (finding) Smoking Status Start Date Stop Date Source Never smoker [place] [facility] Medications Ordered Filled Start Stop Current Ordering Indication Dosage Frequency Signature Comments Components Source Medication Medication Date Date Medication? Clinician (SIG) Name Name gabapentin Yes TAKE 1 [place] (NEURONTIN) 6-18 CAPSULE(30 Me thodi 300 mg 00:00: 0 MG) BY st capsule 00 MOUTH TWICE DAILY pantoprazol 2017-10 Yes 40mg QD Take 1 [place] 1-01 tablet (40 [facility] (PROTONIX) 00:00: mg total) st 40 MG EC 00 by mouth tablet daily. metoprolol 2017-10 2019- No 50mg QD Take 1 [place] succinate 10-21 tablet (50 Met h[facility] XL 00:00: 23:59 mg total) st (TOPROL-XL) 00 :00 by mouth 50 mg 24 hr daily. tablet amLODIPine 2017-10 10mg QD Take 1 [place] (NORVASC) 10-21 tablet (10 Met hodi 10 mg 00:00: 23:59 mg total) st tablet 00 :00 by mouth daily. levothyroxi 2017-10 75ug QD Take 1 [place] ne 10-21 tablet (75 [facility] (SYNTHROID, 00:00: 23:59 mcg total) st LEVOXYL) 75 00 :00 by mouth mcg tablet daily. furosemide 2017-10 20mg QD Take 1 [place] (LASIX) 20 10-21 tablet (20 Me thodi mg tablet 00:00: 23:59 mg total) st 00 :00 by mouth daily. ondansetron 2017-10 Yes 4mg Q8H Infuse 2 [place] (ZOFRAN) 4 0-31 mL (4 mg Metho di mg/2 mL 00:00: total) st injection 00 into a venous catheter every 8 (eight) hours as needed for nausea or vomiting. glucagon 2017-10 Yes 1mg Inject 1 [place] mg/mL recon 0-31 mg into Metho di soln 00:00: the st 00 shoulder, thigh, or buttocks every 15 (fifteen) minutes as needed (if no access and low blood sugar). heparin 2017-10 Yes 5000U Q.5D Inject 1 [place] sodium,porc 0-31 mL (5,000 Met hodi ine 00:00: Units st (HEPARIN, 00 total) PORCINE,) under the 5,000 skin every unit/mL 12 injection (twelve) hours. dextrose 10 2017-10 Yes 40mL/h Infuse 40 [place] % infusion 0-31 mL/hr into Met hodi 00:00: a venous st 00 catheter continuous ly as needed (bedside glucose LESS than 70 mg/dL). dextrose 2017-10 Yes 12.5g Infuse 25 [place] 50% syringe 0-31 mL (12.5 g Me thodi 00:00: total) st 00 into a venous catheter every 20 (twenty) minutes as needed (If blood glucose is between 41-69 mg/dL). dextrose 2017-10 Yes 25g Infuse 50 [place] 50% syringe 0-31 mL (25 g Meth michael 00:00: total) st 00 into a venous catheter every 20 (twenty) minutes as needed (If blood glucose is 40 mg/dL or LESS). magnesium 2017-10 Yes 30mL Q.5D Take 30 mL [place] hydroxide 0-31 by mouth 2 Meth michael 400 mg/5 mL 00:00: (two) st suspension 00 times a day as needed (constipat ion). donepezil 2017-10- No 5mg QD Take 1 [place] (ARICEPT) 5 0-31 10-31 tablet (5 Me thodi MG tablet 00:00: 23:59 mg total) st 00 :00 by mouth nightly. insulin 2017-10- No 0U [id number] Inject 0-5 [place] lispro 0-31 10-31 [id number] Units Metho di (HumaLOG) 00:00: 23:[address] 100 unit/mL 00 :00 skin 3 injection (three) times a day with meals. ezetimibe 2017-10- No 10mg QD Take 1 [place] (ZETIA) 10 0-31 10-31 tablet (10 Me thodi mg tablet 00:00: 23:59 mg total) st 00 :00 by mouth nightly. Immunizations Ordered Immunization Filled Immunization Date Status Commen ts Source Name Name AMINAH JERRY PF 2018-08-17 Completed [place] 00:00:00 [facility] Procedures This patient has no known procedures. Plan of Care Planned Activity Planned Date Details Comments Source Future Scheduled 2020-07-21 INFLUENZA VACCINE [facility] 00:00:00 [code = INFLUENZA VACCINE] Future Scheduled 1995 65+ PNEUMOCOCCAL [place] [facility] 00:00:00 VACCINE (1 of 2 - PCV13) [code = 65+ PNEUMOCOCCAL VACCINE (1 of 2 - PCV13)] Future Scheduled 1982 [facility]LES [facility]INES [facility] 00:00:00 [code = SHINGLES VACCINES (#1)] Results This patient has no known results.
--- OUTSIDE RECORDS SUMMARY | 2020-06-10 09:50 | XMS REPORT | Clinical Summary ---
:1930 Author Organization [facility] Address [address] [place] [address] Care Team Providers Name Role Phone MD Nora Primary Care Provider Allergies Active Allergy Reactions Severity Noted Date Comments Codeine GI Intolerance Medications Medication Sig Dispensed Refills Start Date End Date Status ondansetron Infuse 2 mL (4 mg 20 mL 0 08/20/2018 Active (ZOFRAN) 4 mg/2 mL total) into a injection venous catheter every 8 (eight) hours as needed for nausea or vomiting. glucagon 1 mg/mL Inject 1 mg into 0 08/20/2018 Active recon soln the shoulder, thigh, or buttocks every 15 (fifteen) minutes as needed (if no access and low blood sugar). heparin Inject 1 mL (5,000 0 08/20/2018 Active sodium,porcine Units total) under (HEPARIN, PORCINE,) the skin every 12 5,000 unit/mL (twelve) hours. injection dextrose 10 % Infuse 40 mL/hr 500 mL 0 08/20/2018 Active infusion into a venous catheter continuously as needed (bedside glucose LESS than 70 mg/dL). dextrose 50% Infuse 25 mL (12.5 0 08/20/2018 Active syringe g total) into a venous catheter every 20 (twenty) minutes as needed (If blood glucose is between 41-69 mg/dL). dextrose 50% Infuse 50 mL (25 g 0 08/20/2018 Active syringe total) into a venous catheter every 20 (twenty) minutes as needed (If blood glucose is 40 mg/dL or LESS). pantoprazole Take 1 tablet (40 0 08/21/2018 Active (PROTONIX) 40 MG EC mg total) by mouth tablet daily. magnesium hydroxide Take 30 mL by 0 08/20/2018 Active 400 mg/5 mL mouth 2 (two) suspension times a day as needed (constipation). gabapentin TAKE 1 CAPSULE(300 180 capsule 0 04/07/2019 Active (NEURONTIN) 300 mg MG) BY MOUTH TWICE capsule DAILY metoprolol Take 1 tablet (50 30 tablet 11 08/21/2018 succinate XL mg total) by mouth 9 (TOPROL-XL) 50 mg daily. 24 hr tablet amLODIPine Take 1 tablet (10 30 tablet 11 08/21/2018 (NORVASC) 10 mg mg total) by mouth 9 tablet daily. donepezil (ARICEPT) Take 1 tablet (5 30 tablet 11 08/20/2018 5 MG tablet mg total) by mouth 9 nightly. insulin lispro Inject 0-5 Units 10 mL 12 08/20/2018 (HumaLOG) 100 under the skin 3 9 unit/mL injection (three) times a day with meals. levothyroxine Take 1 tablet (75 30 tablet 11 08/21/2018 (SYNTHROID, mcg total) by 9 LEVOXYL) 75 mcg mouth daily. tablet furosemide (LASIX) Take 1 tablet (20 30 tablet 11 08/21/2018 20 mg tablet mg total) by mouth 9 daily. ezetimibe (ZETIA) Take 1 tablet (10 30 tablet 11 08/20/2018 10 mg tablet mg total) by mouth 9 nightly. 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 Last Filed Vital Signs Not on file Plan of Treatment Health Maintenance Due Date Last Done Comments SHINGLES VACCINES (#1) 1982 65+ PNEUMOCOCCAL VACCINE (1 of 2 - PCV13) 1997 INFLUENZA VACCINE 07/21/2020 08/17/2018 Results Not on fileafter 06/10/2019 Insurance Payer Benefit Plan / Subscriber ID Effective Dates Phone Addre ss Type Group MEDICARE MEDICARE PART A xxxxxxxxxxx 1997-Present [place], [place] Medicare AND B AARP AARP SUPPLEMENT xxxxxxxxx 2009-Present Commercial Advance Directives For more information, please contact: [phone] Type Date Recorded Patient Global Category Manager Explanati on Advance Directives, Living Will and Medical Power of Book Mender
[2020-06-10] MEDS ORDERED: NA CHLORIDE 0.9% 1,000 ML ONE (10:58)
[2020-06-10 11:15] LABS: Absolute Lymphocytes (CBC) 1.3 K/uL (0.7-4.9); Basophils % 0.6 % (0-1.3); Hematocrit 35.1 % (36.0-45.0); Lymphocytes % 17.6 % (15.3-44.8); MPV 8.1 fL (7.6-11.3); RBC Red Blood Cell Count 4.22 M/uL (3.86-4.86)
[2020-06-10 11:46] LABS: ALT/SGPT 23 U/L (12-78); AST/SGOT 21 U/L (15-37); Albumin 3.3 g/dL (3.4-5.0); Alkaline Phosphatase 62 U/L (45-117); BUN Blood Urea Nitrogen 20 mg/dL (7-18); Bicarbonate 30 mmol/L (21-32); Bilirubin Direct 0.2 mg/dL (0-0.2); Bilirubin Total 0.8 mg/dL (0.2-1.0); Glucose Level 103 mg/dL (74-106); Magnesium 2.3 mg/dL (1.8-2.4); NT PRO-BNP 502 pg/mL (<450); Potassium 3.5 mmol/L (3.5-5.1); Protein, Total 7.7 g/dL (6.4-8.2); Sodium Level 146 mmol/L (136-145); Troponin (Emerg Dept Use Only) < 0.02 ng/mL (0.0-0.045)
--- NOTE | 2020-06-10 12:33 | RAD REPORT ---
EXAM DESCRIPTION: CT - C Spine Wo Con - 06/10/2020 11:35 am CLINICAL HISTORY: PAIN Trauma, neck injury, pain COMPARISON: No comparisons FINDINGS: Mild chronic wedging lower survey vertebral bodies is suspected. 2 mm degenerative anterol isthesis of C3 on 4 and C4 on 5 is suspected. Large posterior laminectomy surgical defects are presen t spanning C3-7. No evidence of acute cervical spine fracture or subluxation. Prevertebral soft tissues are normal in thickness. IMPRESSION: Negative for acute cervical spine abnormality. Moderate degenerative changes throughout the cervical levels with evidence of previous extensive post erior laminectomy. All CT scans are performed using dose optimization technique as appropriate and may include automated exposure control or mA/KV adjustment according to patient size.
[2020-06-10] MEDS ORDERED: ASPIRIN 81 MG CHEWABLE TABLET ONE (12:39)
--- NOTE | 2020-06-10 12:39 | RAD REPORT ---
EXAM DESCRIPTION: [facility]06/10/2020 12:26 pm CLINICAL HISTORY: Chest pain COMPARISON: October 2019 FINDINGS: The lungs appear clear of acute infiltrate. The heart is mildly enlarged IMPRESSION: No acute abnormalities displayed
--- NOTE | 2020-06-10 12:57 | ER ---
Nurse's Notes [facility] Name: Nisha Carrillo Age: 89 yrs Sex: Female : 1930 Arrival Date: 06/10/2020 Time: 09:12 Bed 5 Private MD: Joey Melendez V Diagnosis: Chest pain, unspecified;Essential (primary) hypertension;Obesity, unspecified;Dermatitis, unspecified;Zoster without complications Presentation: 06/10 09:45 Chief complaint: Patient states: Chest pressure, neck pain, and upper back pain since ll1 yesterday. Pain is severe when moving both arms up. No cough or known fever. No appetite. On antibiotic for neck pain, states she tried steroids that didn't react well with her. Having neck troubles since her neck surgery 1.5 years ago. Coronavirus screen: Client denies travel out of the [place] in the last 14 days. At this time, the client does not indicate any symptoms associated with coronavirus-19. The client denies any previous COVID testing. Ebola Screen: Patient denies travel to an Ebola-affected area in the 21 days before illness onset. Initial Sepsis Screen: Does the patient meet any 2 criteria? No. Patient's initial sepsis screen is negative. Risk Assessment: Do you want to hurt yourself or someone else? Patient reports no desire to harm self or others. Onset of symptoms was June 09, 2020. 09:45 Method Of Arrival: Wheelchair ll1 09:45 Acuity: SERGIO 3 ll1 10:30 Initial Sepsis Screen: Does the patient have a suspected source of infection? No. aa5 Patient's initial sepsis screen is negative. Historical: - Allergies: 09:49 Codeine; ll1 - Home Meds: 11:00 amlodipine 10 mg tab 1 tab once daily [Active]; aspirin 81 mg Oral TbEC 1 tab once aa5 daily [Active]; clopidogrel 75 mg Oral tab 1 tab once daily [Active]; duloxetine Oral once daily [Active]; Klor-Con 10 10 mEq Oral TbER 1 tab once daily [Active]; kyolic [Active]; Lasix 20 mg Oral tab 1 tab once daily [Active]; levothyroxine 75 mcg tab 1 tab once daily [Active]; losartan 100 mg Oral tab 1 tab once daily [Active]; metoprolol tartrate 50 mg Oral tab 1 tab once daily [Active]; pantoprazole 40 mg Oral TbEC 1 tab once daily [Active]; Zytiga 250 mg Oral tab [Active]; - PMHx: 09:49 Hypothyroidism; GERD; Hypertension; CVA; CHF; ll1 - PSHx: 09:49 Knee surgery; neck; Bladder suspension; ll1 - Immunization history:: Flu vaccine is up to date. - Social history:: Smoking status: Patient denies any tobacco usage or history of. Patient/guardian denies using alcohol, street drugs. - Family history:: not pertinent. Screenin:30 Abuse screen: Denies threats or abuse. Nutritional screening: No deficits noted. aa5 Tuberculosis screening: No symptoms or risk factors identified. Fall Risk Fall in past 12 months (25 points). Secondary diagnosis (15 points) CVA, Total Ramos Fall Scale indicates High Risk Score (45 or more points). Fall prevention measures have been instituted. Side Rails Up X 2 Placed Close to Nursing Station. Assessment: 10:30 General: Appears comfortable, Behavior is calm, cooperative. Pain: Complains of pain in aa5 gerardo arms, neck, and chest Pain currently is 8 out of 10 on a pain scale. Quality of pain is described as heavy, pressure, Pain began 1 day ago. Is intermittent, Alleviated by rest, Aggravated by movement, pt states pain only with movement. Neuro: Level of Consciousness is awake, alert, obeys commands, Oriented to person, place, time, situation. Cardiovascular: Heart tones S1 S2 present Rhythm is sinus rhythm. Respiratory: Airway is patent Respiratory effort is even, unlabored, Respiratory pattern is regular, symmetrical, Breath sounds are clear bilaterally. Denies cough, shortness of breath. GI: Abdomen is round Bowel sounds present X 4 quads. Abd is soft and non tender X 4 quads. : No signs and/or symptoms were reported regarding the genitourinary system. EENT: No signs and/or symptoms were reported regarding the EENT system. Derm: Skin is dry, Skin is normal, Skin temperature is warm Rash noted that is red, raised, on left upper arm Pt reports rash is itchy and began 2-3 days ago. Musculoskeletal: Range of motion: intact in all extremities. 11:30 Reassessment: Will wait on lab results before attempting for IV, Dr. Patterson aware. . aa5 12:37 Neuro: Level of Consciousness is awake, alert, obeys commands, Oriented to person, aa5 place, time, situation. Respiratory: Airway is patent Respiratory effort is even, unlabored, Respiratory pattern is regular, symmetrical. Derm: Skin is dry, Skin is normal, Skin temperature is warm. 12:37 Reassessment: Pt sitting up in bed watching TV. . Cardiovascular: Rhythm is sinus aa5 rhythm. 13:00 Reassessment: Per Dr. Patterson, Lovenox on hold until CT chest results. . aa5 13:15 Reassessment: Pt sitting up in bed. Pt is hard stick, awaiting IV for IV contrast for aa5 CT. . 13:30 Reassessment: Roslyn Caceres RN attempting for IV for CT contrast. aa5 14:30 Reassessment: Pt is a hard stick, Awaiting for possible midline to be placed by Arnol Moran RN. 14:30 Reassessment: Reports pain has improved. . Neuro: Level of Consciousness is awake, aa5 alert, obeys commands, Oriented to person, place, time, situation. Respiratory: Airway is patent Respiratory effort is even, unlabored, Respiratory pattern is regular, symmetrical. Derm: Skin is dry, Skin is normal, Skin temperature is warm. 14:30 Cardiovascular: Rhythm is sinus rhythm. aa5 15:20 Reassessment: Pt to CT via stretcher . aa5 15:45 Reassessment: Pt states she wants the 2nd dose of morphine at this time. . aa5 15:45 Neuro: Level of Consciousness is awake, alert, obeys commands, Oriented to person, aa5 place, time, situation. Cardiovascular: Rhythm is sinus rhythm. Respiratory: Airway is patent Respiratory effort is even, unlabored, Respiratory pattern is regular, symmetrical. Derm: Skin is dry, Skin is normal, Skin temperature is warm. 15:45 Reassessment: Pt back from CT scan, awaiting CT scan results and pending room aa5 assignment, pt notified of wait time. . 16:00 Reassessment: Provided Ipad for pt to communicate with son. Pt currently sitting up aa5 facetiming with son. . 16:00 Neuro: Level of Consciousness is awake, alert, obeys commands, Oriented to person, aa5 place, time, situation. Respiratory: Airway is patent Respiratory effort is even, unlabored, Respiratory pattern is regular, symmetrical. Derm: Skin is dry, Skin is normal, Skin temperature is warm. 16:19 General: Appears in no apparent distress. comfortable, Behavior is calm, cooperative. jd3 Pain: Denies pain. Neuro: Level of Consciousness is awake, alert, obeys commands, Oriented to person, place, time, situation. Cardiovascular: Capillary refill < 3 seconds Patient's skin is warm and dry. Rhythm is sinus rhythm. Respiratory: Airway is patent Respiratory effort is even, unlabored, Respiratory pattern is regular, symmetrical, Denies cough, shortness of breath. GI: Abdomen is round Abd is soft and non tender X 4 quads. : No signs and/or symptoms were reported regarding the genitourinary system. EENT: No signs and/or symptoms were reported regarding the EENT system. Derm: Skin is intact, Skin is dry, Skin is normal, Skin temperature is warm Rash noted that is red, raised, on left upper arm. Musculoskeletal: Circulation, motion, and sensation intact. Range of motion: intact in all extremities. 17:48 Reassessment: Patient appears in no apparent distress at this time. Patient and/or jd3 family updated on plan of care and expected duration. Pain level reassessed. Patient is alert, oriented x 3, equal unlabored respirations, skin warm/dry/pink. charting continued in [facility]. 19:57 Reassessment: Patient and/or family updated on plan of care and expected duration. Pain ea level reassessed. Patient is alert, oriented x 3, equal unlabored respirations, skin warm/dry/pink. Report given to receiving nurse on second floor. 20:04 Reassessment: Pt admitted to second floor. Pt left ED via stretcher per ER nurse, pt ea tolerating well. Vital Signs: 09:45 BP 177 / 82; Pulse 71; Resp 17; Temp 98.6; Pulse Ox 97% ; Weight 92.99 kg; Height 5 ft. ll1 6 in. (167.64 cm); Pain 8/10; 11:28 BP 172 / 67 RA; Pulse 62; Resp 15; Pulse Ox 98% on R/A; dh3 12:30 BP 183 / 74 RA; Pulse 62; Resp 14 S; Pulse Ox 98% on R/A; aa5 12:32 BP 187 / 73 LA; Pulse 58; aa5 14:30 BP 177 / 71; Pulse 68; Resp 16 S; Pulse Ox 98% on R/A; aa5 15:45 BP 175 / 66; Pulse 64; Resp 18 S; Temp 98.3(TE); Pulse Ox 98% on R/A; aa5 16:32 BP 177 / 73; Pulse 58; Resp 17 S; Pulse Ox 97% on R/A; jd3 17:47 BP 160 / 65; Pulse 64; Resp 17 S; Pulse Ox 99% on R/A; jd3 09:45 Body Mass Index 33.09 (92.99 kg, 167.64 cm) ll1 ED Course: 09:12 Patient arrived in ED. ag5 09:12 Joey Melendez MD is Private Physician. ag5 09:48 Triage completed. ll1 09:49 Arm band placed on. ll1 10:29 Miguel Patterson MD is Attending Physician. tan 10:30 Patient has correct armband on for positive identification. Placed in gown. Bed in low aa5 position. Call light in reach. Side rails up X2. school lunch monitor on. Pulse ox on. NIBP on. 10:31 Antoinette Carbajal, OLLIE is Primary Nurse. aa5 10:54 EKG done, by ED staff, reviewed by Miguel Patterson MD. aa5 11:04 Initial lab(s) drawn, by oh, sent to lab. Missed attempt(s): 20 gauge in right hand. aa5 Bleeding controlled, band aid applied, catheter tip intact. 11:15 Missed attempt(s): 22 gauge in right antecubital area. Bleeding controlled, band aid dh3 applied, catheter tip intact. 11:23 Missed attempt(s): 22 gauge in left antecubital area. Bleeding controlled, band aid dh3 applied, catheter tip intact. 11:35 CT C Spine In Process Unspecified. EDMS 12:26 XRAY Chest (1 view) In Process Unspecified. EDMS 12:55 Joey Melendez MD is Hospitalizing Provider. tan 13:00 Inserted saline lock: 22 gauge in left hand, using aseptic technique. IV inserted by aa5 Roslyn Caceres RN. 13:40 Inserted saline lock: 22 gauge in left antecubital area, using aseptic technique. ll1 15:10 Inserted 20 GAUGE 8 CM R BRACHIAL MIDLINE. bp 17:48 No provider procedures requiring assistance completed. Patient admitted, IV remains in jd3 place. Administered Medications: 12:37 Drug: Aspirin 162 mg Route: PO; aa5 13:15 Follow up: Response: No adverse reaction aa5 13:05 Drug: Mucomyst - Acetylcysteine 600 mg Route: PO; aa5 13:30 Follow up: Response: No adverse reaction aa5 13:15 Drug: Pepcid 20 mg Route: IVP; Site: left hand; aa5 13:20 Follow up: Response: No adverse reaction aa5 13:15 Drug: Zofran (Ondansetron) 4 mg Route: IVP; Site: left hand; aa5 13:20 Follow up: Response: No adverse reaction aa5 13:17 Drug: morphine 2 mg Route: IVP; Site: left hand; aa5 13:20 Follow up: Response: No adverse reaction aa5 15:45 Drug: NS 0.9% 1000 ml Route: IV; Rate: 125 ml/hr; Site: left hand; aa5 16:23 Follow up: Response: No adverse reaction; IV Status: Infusion continued upon admission jd3 15:45 Drug: morphine 2 mg Route: IVP; Site: left hand; aa5 15:50 Follow up: Response: No adverse reaction aa5 16:23 Drug: Lovenox 90 mg Route: Sub-Q; Site: right lower abdomen; jd3 17:20 Follow up: Response: No adverse reaction jd3 18:41 Drug: Valtrex 1000 mg Route: PO; jd3 18:41 Follow up: Response: No adverse reaction; No adverse reaction, given during admission jd3 process Outcome: 12:56 Decision to Hospitalize by Provider. tan 17:48 Admitted to ER Hold. Please see [facility] for further documentation. jd3 17:48 Condition: stable 17:48 Instructed on the need for admit, Demonstrated understanding of instructions. 20:04 Patient left the ED. ea Signatures: Dispatcher [employer] Miguel Bloom MD MD cha Calderon, Audri, RN RN aa5 Clair Paniagua 3 Faiza Okeefe RN RN ea Davies, Jonathon, RN RN jd3 Arnol Moran RN RN bp Gaskin, Ajare 5 Morris, Lynsay, RN RN ll1
--- NOTE | 2020-06-10 12:57 | EDPHYS ---
Physician Documentation [facility] Name: Nisha Carrillo Age: 89 yrs Sex: Female : 1930 Arrival Date: 06/10/2020 Time: 09:12 Bed 5 Private MD: Joey Melendez V ED Physician Miguel Patterson HPI: 06/10 11:09 This 89 yrs old Black Female presents to ER via Wheelchair with complaints of Neck tan Pain, <24hrs Old, Back Pain, Chest Pressure. 11:09 The patient or guardian complains of decreased range of motion, pain. The symptoms are tan located at the cervical spine. 11:09 Onset: The symptoms/episode began/occurred just prior to arrival, this morning. tan Context: The problem was sustained at home. The patient or guardian reports chest pain that is located primarily in the substernal area. Onset: this morning, today. The patient presents with pain that is acute, with no known mechanism of injury. Onset: The symptoms/episode began/occurred this morning. The pain radiates to the left scapular area, right scapular area and thoracic area. Historical: - Allergies: 09:49 Codeine; ll1 - Home Meds: 11:00 amlodipine 10 mg tab 1 tab once daily [Active]; aspirin 81 mg Oral TbEC 1 tab once aa5 daily [Active]; clopidogrel 75 mg Oral tab 1 tab once daily [Active]; duloxetine Oral once daily [Active]; Klor-Con 10 10 mEq Oral TbER 1 tab once daily [Active]; kyolic [Active]; Lasix 20 mg Oral tab 1 tab once daily [Active]; levothyroxine 75 mcg tab 1 tab once daily [Active]; losartan 100 mg Oral tab 1 tab once daily [Active]; metoprolol tartrate 50 mg Oral tab 1 tab once daily [Active]; pantoprazole 40 mg Oral TbEC 1 tab once daily [Active]; Zytiga 250 mg Oral tab [Active]; - PMHx: 09:49 Hypothyroidism; GERD; Hypertension; CVA; CHF; ll1 - PSHx: 09:49 Knee surgery; neck; Bladder suspension; ll1 - Immunization history:: Flu vaccine is up to date. - Social history:: Smoking status: Patient denies any tobacco usage or history of. Patient/guardian denies using alcohol, street drugs. - Family history:: not pertinent. ROS: 11:09 Constitutional: Negative for fever, chills, and weight loss, Eyes: Negative for injury, tan pain, redness, and discharge, ENT: Negative for injury, pain, and discharge, Respiratory: Negative for shortness of breath, cough, wheezing, and pleuritic chest pain, Abdomen/GI: Negative for abdominal pain, nausea, vomiting, diarrhea, and constipation, Back: Negative for injury and pain, : Negative for injury, bleeding, discharge, and swelling, MS/Extremity: Negative for injury and deformity, Skin: Negative for injury, rash, and discoloration, Neuro: Negative for headache, weakness, numbness, tingling, and seizure, Psych: Negative for depression, anxiety, suicide ideation, homicidal ideation, and hallucinations, Allergy/Immunology: Negative for hives, rash, and allergies, Endocrine: Negative for neck swelling, polydipsia, polyuria, polyphagia, and marked weight changes, Hematologic/Lymphatic: Negative for swollen nodes, abnormal bleeding, and unusual bruising. 11:09 Neck: Positive for pain with movement, pain at rest. 11:09 Cardiovascular: Positive for chest pain, with movement, of the chest. Exam: 11:09 Constitutional: This is a well developed, well nourished patient who is awake, alert, tan and in no acute distress. Head/Face: Normocephalic, atraumatic. Eyes: Pupils equal round and reactive to light, extra-ocular motions intact. Lids and lashes normal. Conjunctiva and sclera are non-icteric and not injected. Cornea within normal limits. Periorbital areas with no swelling, redness, or edema. ENT: Nares patent. No nasal discharge, no septal abnormalities noted. Tympanic membranes are normal and external auditory canals are clear. Oropharynx with no redness, swelling, or masses, exudates, or evidence of obstruction, uvula midline. Mucous membranes moist. Cardiovascular: Regular rate and rhythm with a normal S1 and S2. No gallops, murmurs, or rubs. Normal PMI, no JVD. No pulse deficits. Respiratory: Lungs have equal breath sounds bilaterally, clear to auscultation and percussion. No rales, rhonchi or wheezes noted. No increased work of breathing, no retractions or nasal flaring. Abdomen/GI: Soft, non-tender, with normal bowel sounds. No distension or tympany. No guarding or rebound. No evidence of tenderness throughout. Back: No spinal tenderness. No costovertebral tenderness. Full range of motion. Skin: Warm, dry with normal turgor. Normal color with no rashes, no lesions, and no evidence of cellulitis. MS/ Extremity: Pulses equal, no cyanosis. Neurovascular intact. Full, normal range of motion. Neuro: Awake and alert, GCS 15, oriented to person, place, time, and situation. Cranial nerves II-XII grossly intact. Motor strength 5/5 in all extremities. Sensory grossly intact. Cerebellar exam normal. Normal gait. Psych: Awake, alert, with orientation to person, place and time. Behavior, mood, and affect are within normal limits. 11:09 Neck: External neck: is normal, C-spine: appears grossly normal, ROM/movement: limited range of motion, that is mild, with flexion, with extension. 11:09 Chest/axilla: Inspection: normal, Palpation: tenderness, that is mild, of the anterior aspect of right upper chest and anterior aspect of left upper chest. 11:09 Musculoskeletal/extremity: Extremities: all appear grossly normal, with no appreciated pain with palpation, ROM: intact in all extremities, Circulation is intact in all extremities. Sensation intact. Compartment Syndrome exam of affected extremity: is normal. DVT Exam: No signs of deep vein thrombosis. no pain, no swelling, no tenderness, negative Homans' sign noted on exam, no appreciated bluish discoloration, no erythema, no increased warmth. 11:09 Skin: on the anterior aspect of left shoulder and posterior aspect of left shoulder. 11:18 ECG was reviewed by the Attending Physician. [facility] 18:29 Skin: on the posterior aspect of left shoulder and anterior aspect of left shoulder. [facility] Vital Signs: 09:45 BP 177 / 82; Pulse 71; Resp 17; Temp 98.6; Pulse Ox 97% ; Weight 92.99 kg; Height 5 ft. ll1 6 in. (167.64 cm); Pain 8/10; 11:28 BP 172 / 67 RA; Pulse 62; Resp 15; Pulse Ox 98% on R/A; dh3 12:30 BP 183 / 74 RA; Pulse 62; Resp 14 S; Pulse Ox 98% on R/A; aa5 12:32 BP 187 / 73 LA; Pulse 58; aa5 14:30 BP 177 / 71; Pulse 68; Resp 16 S; Pulse Ox 98% on R/A; aa5 15:45 BP 175 / 66; Pulse 64; Resp 18 S; Temp 98.3(TE); Pulse Ox 98% on R/A; aa5 16:32 BP 177 / 73; Pulse 58; Resp 17 S; Pulse Ox 97% on R/A; jd3 17:47 BP 160 / 65; Pulse 64; Resp 17 S; Pulse Ox 99% on R/A; jd3 09:45 Body Mass Index 33.09 (92.99 kg, 167.64 cm) ll1 MDM: 10:29 Patient medically screened. tan 11:14 Differential diagnosis: Cervical Disc Herniation Cervical Raiculopathy abnormal EKG, tan acute myocardial infarction, anxiety, chest wall pain, congestive heart failure arthritis, chronic back pain, esophagitis, stable angina, Obesity ruptured disc, spinal injury, unstable angina, Degenerative Disc Disease Simple Wedge Fracture. HEART Score: History: Moderately Suspicious (1), ECG: Normal (0), Age: > or = 65 years (2), Risk Factors: > or = 3 Risk factors for atherosclerotic disease (2), [Hypercholesterolemia] [Hypertension] [+ Family HX] [Obesity]. The patient was given aspirin in the Emergency Department. The patient's deep vein thrombosis risk score was calculated as follows: Total Score: 0. This patient was found to be at low risk for a deep vein thrombosis by using the Well's assessment criteria. The patient's pulmonary embolism risk score was calculated as follows: Total Score: 0-2 points. This patient was found to be at low risk for a pulmonary embolism by using the Well's assessment criteria. MIKE Risk Score: 1 - patient's age is greater or equal to 65 years, 1 - Three or more CAD risk factors, 1- Known CAD, 1 - Recent [<24hrs] Severe Angina, TOTAL SCORE = 4. Data reviewed: vital signs, nurses notes, lab test result(s), EKG, radiologic studies. Data interpreted: ecology professor: rate is 71 beats/min, rhythm is regular, Pulse oximetry: on room air is 97 %. Test interpretation: by ED physician or midlevel provider: ECG, plain radiologic studies. Counseling: I had a detailed discussion with the patient and/or guardian regarding: the historical points, exam findings, and any diagnostic results supporting the discharge/admit diagnosis, the presence of at least one elevated blood pressure reading (>120/80) during this emergency department visit, lab results, radiology results, the need for further work-up and treatment in the hospital. 06/10 10:39 Order name: Basic Metabolic Panel; Complete Time: 11:57 [facility] 06/10 10:39 Order name: CBC with Diff; Complete Time: 11:58 [facility] 06/10 10:39 Order name: LFT's; Complete Time: 11:58 [facility] 06/10 10:39 Order name: Magnesium; Complete Time: 11:58 [facility] 06/10 10:39 Order name: NT PRO-BNP; Complete Time: 11:58 [facility] 06/10 10:39 Order name: Troponin (emerg Dept Use Only); Complete Time: 11:58 [facility] 06/10 10:39 Order name: XRAY Chest (1 view); Complete Time: 12:42 [facility] 06/10 11:09 Order name: CT C Spine; Complete Time: 12:42 [facility] 06/10 12:58 Order name: CT Aorta for Dissection [facility] 06/10 13:40 Order name: Urine Dipstick--Ancillary (enter results) 06/10 13:49 Order name: Urine Dipstick-Ancillary; Complete Time: 14:14 [facility] 06/10 15:49 Order name: CT [facility] 06/10 19:01 Order name: Troponin I [facility] 06/10 10:39 Order name: EKG; Complete Time: 10:40 [facility] 06/10 10:39 Order name: Cardiac monitoring; Complete Time: 11:08 [facility] 06/10 10:39 Order name: EKG - Nurse/Tech; Complete Time: 11:08 [facility] 06/10 10:39 Order name: IV Saline Lock; Complete Time: 15:46 [facility] 06/10 10:39 Order name: Labs collected and sent; Complete Time: 11:08 [facility] 06/10 10:39 Order name: O2 Per Protocol; Complete Time: 11:09 [facility] 06/10 10:39 Order name: O2 Sat Monitoring; Complete Time: 11:09 [facility] 06/10 13:03 Order name: CONS Physician Consult [facility] 06/10 16:22 Order name: Diet Heart Healthy; Complete Time: 16:22 [facility] 06/10 10:39 Order name: Urine Dipstick-Ancillary (obtain specimen); Complete Time: 15: [facility] 06/10 11:09 Order name: Bilateral blood pressure; Complete Time: 12:38 [facility] EC:18 Rate is 59 beats/min. Rhythm is regular. QRS [place] is Normal. PA interval is normal. QRS tan interval is normal. QT interval is normal. No Q waves. T waves are Normal. No ST changes noted. Clinical impression: NSR w/ Non-specific ST/T Changes and No evidence of ischemia. Interpreted by me. Reviewed by me. Administered Medications: 12:37 Drug: Aspirin 162 mg Route: PO; aa5 13:15 Follow up: Response: No adverse reaction aa5 13:05 Drug: Mucomyst - Acetylcysteine 600 mg Route: PO; aa5 13:30 Follow up: Response: No adverse reaction aa5 13:15 Drug: Pepcid 20 mg Route: IVP; Site: left hand; aa5 13:20 Follow up: Response: No adverse reaction aa5 13:15 Drug: Zofran (Ondansetron) 4 mg Route: IVP; Site: left hand; aa5 13:20 Follow up: Response: No adverse reaction aa5 13:17 Drug: morphine 2 mg Route: IVP; Site: left hand; aa5 13:20 Follow up: Response: No adverse reaction aa5 15:45 Drug: NS 0.9% 1000 ml Route: IV; Rate: 125 ml/hr; Site: left hand; aa5 16:23 Follow up: Response: No adverse reaction; IV Status: Infusion continued upon admission jd3 15:45 Drug: morphine 2 mg Route: IVP; Site: left hand; aa5 15:50 Follow up: Response: No adverse reaction aa5 16:23 Drug: Lovenox 90 mg Route: Sub-Q; Site: right lower abdomen; jd3 17:20 Follow up: Response: No adverse reaction jd3 18:41 Drug: Valtrex 1000 mg Route: PO; jd3 18:41 Follow up: Response: No adverse reaction; No adverse reaction, given during admission jd3 process Disposition: 06/10/20 12:56 Hospitalization ordered by Joey Melendez for Observation. Preliminary diagnosis are Chest pain, unspecified, Essential (primary) hypertension, Obesity, unspecified, Dermatitis, unspecified, Zoster without complications. - Bed requested for Telemetry/MedSurg (observation). - Status is Observation. ea - Condition is Stable. - Problem is new. - Symptoms have improved. Signatures: Dispatcher [employer] EDMS Genet Philip Miguel Colindres MD MD cha Waters, Shelly, INDUCTION MACHINE OPERATOR-C INDUCTION MACHINE OPERATOR-Csnw Antoinette Carbajal, RN RN aa5 Faiza Okeefe RN RN ea Davies, Jonathon, RN RN jd3 Roslyn Caceers RN RN ll1 Corrections: (The following items were deleted from the chart) 12:59 12:56 Hospitalization Ordered by Joey Melendez MD for Observation. Preliminary diagnosis tan is Chest pain, unspecified; Essential (primary) hypertension. Bed requested for Telemetry/MedSurg (observation). Status is Observation. Condition is Stable. Problem is new. Symptoms have improved. tan 17:34 12:59 06/10/2020 12:56 Hospitalization Ordered by Joey Melendez MD for Observation. bd Preliminary diagnosis is Chest pain, unspecified; Essential (primary) hypertension; Obesity, unspecified. Bed requested for Telemetry/MedSurg (observation). Status is Observation. Condition is Stable. Problem is new. Symptoms have improved. tan 18:28 17:34 06/10/2020 12:56 Hospitalization Ordered by Joey Melendez MD for Observation. tan Preliminary diagnosis is Chest pain, unspecified; Essential (primary) hypertension; Obesity, unspecified. Bed requested for [facility] ER HOLD. Status is Observation. Condition is Stable. Problem is new. Symptoms have improved. bd 18:59 18:28 06/10/2020 12:56 Hospitalization Ordered by Joey Melendez MD for Observation. bd Preliminary diagnosis is Chest pain, unspecified; Essential (primary) hypertension; Obesity, unspecified; Dermatitis, unspecified; Zoster without complications. Bed requested for [facility] ER HOLD. Status is Observation. Condition is Stable. Problem is new. Symptoms have improved. tan 20:04 18:59 06/10/2020 12:56 Hospitalization Ordered by Joey Melendez MD for Observation. ea Preliminary diagnosis is Chest pain, unspecified; Essential (primary) hypertension; Obesity, unspecified; Dermatitis, unspecified; Zoster without complications. Bed requested for Telemetry/MedSurg (observation). Status is Observation. Condition is Stable. Problem is new. Symptoms have improved. bd
[2020-06-10] MEDS ORDERED: MORPHINE 2 MG/ML SYR ONE ×2 (13:10→15:39)
[2020-06-10] MEDS ORDERED: FAMOTIDINE 20 MG/2 ML VIAL IV ONE (13:10)
[2020-06-10] MEDS ORDERED: ONDANSETRON 4 MG/2 ML VIAL ONE (13:10)
[2020-06-10] MEDS ORDERED: ENOXAPARIN 100 MG/ML SYR SQ ONE (13:10)
[2020-06-10] MEDS ORDERED: ACETYLCYST 6,000 MG/30 ML VIAL ONE (13:14)
[2020-06-10 13:49] LABS: Urine Blood TRACE (NEG); Urine Glucose NEGATIVE (NEG); Urine Protein NEGATIVE (NEG); Urine pH 6.5 (5.0-7.0)
--- NOTE | 2020-06-10 15:47 | RAD REPORT ---
EXAM DESCRIPTION: CT - Angio Aorta For Dissection - 06/10/2020 3:30 pm CLINICAL HISTORY: . Chest and abd pain COMPARISON: 2018 TECHNIQUE: Computed tomography angiography of the chest, abdomen pelvis were obtained. 100 cc Isovue 370 was administered intravenously. Coronal and sagittal reconstruction were performed. MIP 3D reconstruction was performed All CT scans are performed using dose optimization technique as appropriate and may include automated exposure control or mA/KV adjustment according to patient size. FINDINGS: An aortic dissection is not seen. An aortic aneurysm is not displayed. The celiac, SMA and ESPERANZA are patent . Mild to moderate chronic appearing lung opacities. Small to moderate hiatal hernia. A pericardial effusion is not seen. A pleural effusion is not noted. The liver,spleen, pancreas adrenals kidneys demonstrate no significant abnormality. Diverticula stem from colon without evidence of diverticulitis. Spondylosis involves the lumbar spine resulting spinal stenosis Plaque right and left renal arteries result in a moderate grade stenosis IMPRESSION: Negative for an aortic dissection.
[2020-06-10] MEDS ORDERED: ONDANSETRON 4 MG/2 ML VIAL IV PRN (17:50)
[2020-06-10 18:21] VITALS: BMI 33.0
[2020-06-10] MEDS ORDERED: ACETAMINOPHEN 325 MG TABLET PO PRN (18:28)
[2020-06-10] MEDS ORDERED: MORPHINE 2 MG/ML SYR IV PRN (18:29)
[2020-06-10] MEDS ORDERED: VALACYCLOVIR 500 MG TAB ONE (18:49)
[2020-06-10] MEDS: VALACYCLOVIR 500 MG TAB PO SCH (21:00)
[2020-06-10] MEDS ORDERED: ENOXAPARIN 80 MG/0.8 ML SQ SCH (21:00)
[2020-06-10] MEDS: METOPROLOL TAR 50 MG TAB PO SCH (21:42)
[2020-06-11 04:19] LABS: Absolute Lymphocytes (CBC) 1.6 K/uL (0.7-4.9); Basophils % 0.8 % (0-1.3); Hematocrit 32.2 % (36.0-45.0); MPV 8.4 fL (7.6-11.3); RBC Red Blood Cell Count 3.85 M/uL (3.86-4.86)
[2020-06-11 04:25] LABS: Potassium 3.6 mmol/L (3.5-5.1)
[2020-06-11] MEDS: METOPROLOL TAR 50 MG TAB PO SCH (08:23)
[2020-06-11] MEDS: VALACYCLOVIR 500 MG TAB PO SCH (08:24)
[2020-06-11 08:45] LABS: MPV 8.1 fL (7.6-11.3)
[2020-06-11 08:56] VITALS: O2SAT 94
[2020-06-11] MEDS ORDERED: CLOPIDOGREL 75 MG TABLET PO SCH (09:00)
[2020-06-11] MEDS ORDERED: FUROSEMIDE 20 MG TABLET PO SCH (09:00)
[2020-06-11] MEDS ORDERED: ASPIRIN EC 81 MG TAB PO SCH (09:00)
[2020-06-11] MEDS ORDERED: ENOXAPARIN 30 MG/0.3 ML SQ SCH (09:00)
[2020-06-11] MEDS ORDERED: LOSARTAN POTASSIUM 50 MG TABLET PO SCH (09:00)
[2020-06-11] MEDS ORDERED: AMLODIPINE 10 MG TAB PO SCH (09:00)
[2020-06-11 09:43] LABS: Platelet Estimate ADEQ
--- NOTE | 2020-06-11 11:42 | P.SSS ---
Patient History Date of Service: 06/11/20 Reason for admission: NECK, CHEST AND ARM PAIN. History of Present Illness: MS. SPAIN IS 89 YEARS OLD LADY WITH HTN, DJD, RADICULAR PAIN IN NECK SP SURGERY TWO YEARS AGO, GEN WEAKNESS, PMR BUT COULD NOT TOLERATE STEROIDS. SHE COMES WITH UPPER CHEST PAIN RADIATION TO BACK, NECK PAIN AND ARM PAIN. ON EXAMINATION I FOUND THAT SHE HAS RASH ON UPPER ARM LATERALLY THAT IS CROPPED AND VESICULAR SUGGESTIVE OF RASH. HER BP THIS AM WAS HIGH AT 200 SYSTOLIC BUT CAME DOWN TO 120/56 AFTER MEDICATIONS. SHE IS WALKING TO BATHROOM WITHOUT FALLING. Allergies No Known Allergies Allergy (Verified 08/10/19 14:48) Home Medications: Amlodipine Besylate [Norvasc] 10 mg PO DAILY 12/24/17 Clopidogrel Bisulfate [Plavix*] 75 mg PO DAILY 12/24/17 Levothyroxine Sodium 75 mcg PO DAILY 12/24/17 Pantoprazole [Protonix Tab*] 40 mg PO DAILY 12/24/17 Ezetimibe 10 mg PO DAILY 11/14/18 Tramadol HCl [Ultram] 50 mg PO DAILY 11/14/18 Aspirin Chewable [Aspirin Chewable*] 1 tab PO DAILY 08/10/19 Docusate [Colace Cap*] 1 tab PO DAILY 08/10/19 Duloxetine HCl 1 tab PO DAILY 08/10/19 Mirabegron [Myrbetriq] 50 mg PO DAILY 08/10/19 Mirtazapine [Remeron*] 15 mg PO BEDTIME PRN 08/10/19 Montelukast [Singulair*] 10 mg PO DAILY 08/10/19 Polyethylene Glycol 3350 [Miralax] 1 packet PO DAILY 08/10/19 methocarbamoL [Robaxin*] 500 mg PO DAILYPRN PRN 08/10/19 Furosemide 20 mg PO DAILY #90 tablet 08/11/19 Spironolactone 25 mg PO DAILY #90 tablet 08/11/19 Metoprolol Tartrate 50 mg PO BID #180 tablet 08/12/19 Acetaminophen [Tylenol*] 650 mg PO Q6H PRN tab 06/11/20 Amlodipine [Norvasc*] 10 mg PO DAILY tab 06/11/20 Clopidogrel Bisulfate [Plavix*] 75 mg PO DAILY tablet 06/11/20 Furosemide [Lasix*] 20 mg PO DAILY tab 06/11/20 Losartan Potassium [Cozaar*] 100 mg PO DAILY tablet 06/11/20 Metoprolol Tartrate [Lopressor*] 100 mg PO BID tab 06/11/20 - Past Medical/Surgical History Has patient received pneumonia vaccine in the past: Yes Diabetic: No -: HTN -: TIA -: GERD -: hypothyroidism -: CHF -: CVA- Right side weakness -: hysterectomy -: cholecystectomy -: bilateral knee sx -: tonsillectomy - Family History Mother -: Heart disease, Stroke Father -: Heart disease, Hypertension, Cancer - Social History Smoking Status: Unknown if ever smoked Alcohol use: No CD- Drugs: No Caffeine use: No Place of Residence: Home Review of Systems 10-point ROS is otherwise unremarkable General: Weakness Musculoskeletal: Neck Pain, Back Pain, As per HPI Physical Examination - Vital Signs Temperature: 97.6 F Blood Pressure: 202/88 Pulse: 64 Respirations: 16 Pulse Ox (%): 97 - Physical Exam General: Mild distress, Obese HEENT: Atraumatic, PERRLA, Mucous membr. moist/pink, EOMI, Sclerae nonicteric Neck: Supple, 2+ carotid pulse no bruit, No LAD, Without JVD or thyroid abnormality Respiratory: Clear to auscultation bilaterally, Normal air movement Cardiovascular: Regular rate/rhythm, Normal S1 S2 Gastrointestinal: Normal bowel sounds, No tenderness Musculoskeletal: No tenderness Integumentary: No rashes Neurological: Normal gait Lymphatics: No axilla or inguinal lymphadenopathy - Studies Laboratory Data (last 24 hrs) 06/10/20 11:04: Sodium 146 H, Potassium 3.5, BUN 20 H, Creatinine 1.39 H, Glucose 103, Magnesium 2.3, Total Bilirubin 0.8, AST 21, ALT 23, Alkaline Phosphatase 62 - Diagnosis (Problem(s)) (1) Cervical radicular pain Current Visit: Yes Status: Chronic Plan: LYRICA STARTED SHE IS ALREADY ON ULTRAM. (2) Herpes zoster Current Visit: Yes Status: Acute Plan: VALTREX PO AND LYRICA WILL HELP THE PAIN. (3) Hypertension Current Visit: No Status: Chronic (4) Neck pain Current Visit: No Status: Chronic (5) Chest pain Onset Date: 03/06/16 Current Visit: No Status: Acute Plan: NO CARDIAC EVENT. NEG ENZ. NORMAL EKG. NO SIGNS OF CORONARY ISSUES ON THIS ADMISSION. CT DISSECTION NEG. - Disposition Disposition: ROUTINE DISCHARGE Condition: FAIR Patient Discharge Instructions: I CALLED IN DOMO FROM MY EMR TO HER PHARMACY. THIS IS FOR SHINGLES AND PAIN.
[2020-06-11 12:16] VITALS: BP 126/59; TEMP 98.7
== END 2020-06-11 13:12 | disposition home or self-care (01) ==
LOC: ER 09:09 → ERHOLD 13:01 → 2ND 19:54
PROVIDERS: ADMIT Internal Medicine; ATTEND Internal Medicine
DX: R07.9 Chest pain, unspecified (principal); M54.12 Radiculopathy, cervical region; B02.9 Zoster without complications; I11.0 Hypertensive heart disease with heart failure; I50.9 Heart failure, unspecified; E03.9 Hypothyroidism, unspecified; K21.9 Gastro-esophageal reflux disease without esophagitis; I69.351 Hemiplegia and hemiparesis following cerebral infarction affecting right dominant side; M19.90 Unspecified osteoarthritis, unspecified site; Z79.891 Long term (current) use of opiate analgesic; Z79.02 Long term (current) use of antithrombotics/antiplatelets; Z79.84 Long term (current) use of oral hypoglycemic drugs; Z79.899 Other long term (current) drug therapy; E66.9 Obesity, unspecified; Z68.33 Body mass index [BMI] 33.0-33.9, adult
CPT/HCPCS: 96361; 93005; 85025 ×2; 80048 ×2; 36415 ×2; 83735; 85049; 80076; 81003; 84484 ×3; 83880; 72125; 71275; 74175; 71045; 96375; 96372; 96374; 99285; U0002; Q9967; J1650 ×2; J2270 ×3; J7030; J2405; G0378 ×3

== ENCOUNTER 2020-06-12 10:08 | Emergency (ER) | payer OTHER, MEDICARE ==
--- OUTSIDE RECORDS SUMMARY | 2020-06-12 10:10 | XMS REPORT | Continuity of Care Document ---
:1930 Author Organization [facility] t Address [address] [place] [address] Care Team Providers Name Role Phone Nora [...] Date Date Clinician Codejaz Propensi Active GI [place] ty to Intolerance Metho di adverse st reaction s to drug Family History Family Member Diagnosis Comments Start Date Stop Date Source Natural brother Cancer [facility] Family member Diabetes [facility] Social History Social Habit Start Date Stop Date Quantity Comments Source Sex Assigned At [facility] ethodist Alcohol intake 2018-12-26 2018-12-26 Current [facility] thodist 00:00:00 00:00:00 non-drinker of alcohol (finding) Smoking Status Start Date Stop Date Source Never smoker [place] Medications Ordered Filled Start Stop Current [...] by mouth nightly. insulin 2017-10- No 0U [id number] Inject 0-5 [place] lispro 0-31 10-31 [id number] Units Metho di (HumaLOG) 00:00: 23:59 3D [...] Name Name AMINAH JERRY PF 2018-08-17 Completed [place] 00:00:00 [facility] Procedures This patient has no known procedures. Plan of Care Planned Activity Planned Date Details Comments Source Future Scheduled 2020-07-21 INFLUENZA VACCINE Benitez kauffman [facility] 00:00:00 [code = INFLUENZA VACCINE] Future Scheduled 1997 65+ PNEUMOCOCCAL [place] [facility] 00:00:00 VACCINE (1 of 2 - PCV13) [code = 65+ PNEUMOCOCCAL VACCINE (1 of 2 - PCV13)] Future Scheduled 1982 [facility]INGLES [facility]IN[facility] (#1) [facility] 00:00:00 [code = SHINGLES VACCINES (#1)] Results This patient has no known results.
--- OUTSIDE RECORDS SUMMARY | 2020-06-12 10:10 | XMS REPORT | Clinical Summary ---
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
--- NOTE | 2020-06-12 10:46 | RAD REPORT ---
EXAM DESCRIPTION: CT - Ct Stroke Brain Wo Cont - 06/12/2020 10:29 am CLINICAL HISTORY: Numbness COMPARISON: 2018 TECHNIQUE: Computed axial tomography of the head was obtained. All CT scans are performed using dose optimization technique as appropriate and may include automated exposure control or mA/KV adjustment according to patient size. FINDINGS: An intracranial bleed is not seen . The ventricles are normal in caliber. No extra-axial fluid collection is noted. 1 centimeter low-density area has developed within the deep white matter of the left parietal lobe. Fluid within the sinuses/ mastoids is not seen. IMPRESSION: 1 centimeter low-density area within the deep white matter of the left parietal lobe pro bably an infarct. It could be acute or chronic. MRI of the brain would be helpful for further evaluat devan Vital of the emergency room was notified at 10:40 a.m. June 12, 2020
[2020-06-12] MEDS ORDERED: NA CHLORIDE 0.9% 500 ML ONE (11:12)
--- NOTE | 2020-06-12 11:12 | RAD REPORT ---
EXAM DESCRIPTION: [place] Single View06/12/2020 11:00 am CLINICAL HISTORY: Chest pain COMPARISON: June 10, 2020 FINDINGS: The lungs appear clear of acute infiltrate. The heart is normal size. Right hemidiaphragm remains elevated IMPRESSION: No acute abnormalities displayed
[2020-06-12] MEDS ORDERED: FOLIC ACID 5 MG/ML VIAL ONE (11:13)
[2020-06-12 11:16] LABS: Absolute Lymphocytes (CBC) 1.6 K/uL (0.7-4.9); Basophils % 0.7 % (0-1.3); Hematocrit 33.1 % (36.0-45.0); Lymphocytes % 24.6 % (15.3-44.8); MPV 7.9 fL (7.6-11.3)
--- NOTE | 2020-06-12 11:22 | EDPHYS ---
Physician Documentation [facility] Name: Nisha Carrillo Age: 89 yrs Sex: Female : 1930 Arrival Date: 06/12/2020 Time: 10:17 Bed 18 Private MD: ED Physician Miguel Patterson HPI: 06/12 10:26 This 89 yrs old Black Female presents to ER via EMS with complaints of Right Sided pm1 Weakness. 10:26 The patient presents to the emergency department with weakness of the right lower pm1 extremity, right facial numbness, difficult walking, Right leg weak. Onset: The symptoms/episode began/occurred this morning, at 05:00. Context: occurred at home, occurred while the patient was Woke up with weakness and numbness to right lower leg and numbness to right side of face. Associated signs and symptoms: Pertinent positives: Rash - Recently diagnosed with shingles, Pertinent negatives: fever. Severity of symptoms: in the emergency department the symptoms have improved. Patient's baseline: Neuro: alert and fully oriented, Motor: baseline right leg weakness from prior stroke 2-3 years ago. Patient's right leg is significantly weaker than her baseline. She is typically able to walk using a walker. Unable to move right leg against gravity at 0500, Ambulation: walks with assist only, uses walker, Speech: normal, The patient has a previous history of CVA. The patient has been recently seen at the [facility] Emergency Department, on Saturday. Was diagnosed with chest pain due to rash, admitted to her PCP for chest pain rule out. Diagnosed with shingles and discharged to home yesterday. Historical: - Allergies: 10:17 Codeine (nausea); aa5 - PMHx: 10:17 CHF; CVA; GERD; Hypertension; Hypothyroidism; Right sided weakness; aa5 - PSHx: 10:17 Knee surgery; neck; Bladder suspension; aa5 - Immunization history:: Adult Immunizations up to date. - Social history:: Smoking status: Patient denies any tobacco usage or history of. ROS: 10:26 Constitutional: Negative for fever, chills, and weight loss, Eyes: Negative for injury, pm1 pain, redness, and discharge, ENT: Negative for injury, pain, and discharge, Neck: Negative for injury, pain, and swelling. 10:26 Cardiovascular: Negative for chest pain, palpitations, and edema, Respiratory: Negative for shortness of breath, cough, wheezing, and pleuritic chest pain, Abdomen/GI: Negative for abdominal pain, nausea, vomiting, diarrhea, and constipation, Back: Negative for injury and pain, MS/Extremity: Negative for injury and deformity. 10:26 Skin: Positive for rash, of the anterior aspect of left shoulder, Negative for abscesses, cellulitis. 10:26 Neuro: Positive for numbness, weakness, of the right leg, Numbness to right side of face, Negative for altered mental status, dizziness, speech changes, visual changes. Exam: 10:26 Constitutional: This is a well developed, well nourished patient who is awake, alert, pm1 and in no acute distress. Head/Face: Normocephalic, atraumatic. Eyes: Pupils equal round and reactive to light, extra-ocular motions intact. Lids and lashes normal. Conjunctiva and sclera are non-icteric and not injected. Cornea within normal limits. Periorbital areas with no swelling, redness, or edema. ENT: Nares patent. No nasal discharge, no septal abnormalities noted. Tympanic membranes are normal and external auditory canals are clear. Oropharynx with no redness, swelling, or masses, exudates, or evidence of obstruction, uvula midline. Mucous membranes moist. Neck: Trachea midline, no thyromegaly or masses palpated, and no cervical lymphadenopathy. Supple, full range of motion without nuchal rigidity, or vertebral point tenderness. No Meningismus. 10:26 Back: No spinal tenderness. No costovertebral tenderness. Full range of motion. Skin: Warm, dry with normal turgor. Normal color with no rashes, no lesions, and no evidence of cellulitis. MS/ Extremity: Pulses equal, no cyanosis. Neurovascular intact. Full, normal range of motion. 10:26 Cardiovascular: Exam negative for acute changes, Rate: normal, Rhythm: regular, Pulses: no pulse deficits are appreciated. 10:26 Respiratory: Exam negative for acute changes, respiratory distress, shortness of breath. 10:26 Abdomen/GI: Exam negative for acute changes, Inspection: abdomen appears normal, Palpation: abdomen is soft and non-tender, in all quadrants. 10:26 Neuro: Orientation: is normal, Mentation: is normal, Motor: Strength is 1/5 in the right leg, Sensation: numbness, that is mild, of the right side of face and right lower leg, pin prick is decreased in the right leg. Vital Signs: 10:30 BP 182 / 71; Pulse 62; Resp 18 S; Temp 98.4(O); Pulse Ox 100% on R/A; aa5 11:01 BP 155 / 59; Pulse 67; Resp 14 S; Pulse Ox 100% on R/A; ca1 12:02 BP 160 / 61; Pulse 65; Resp 14 S; Pulse Ox 100% on R/A; ca1 12:43 BP 162 / 65; Pulse 61; Resp 15 S; Pulse Ox 100% on R/A; ca1 NIH Stroke Scale Scores: 10:26 NIHSS Score: 3 pm1 10:54 NIHSS Score: 3 aa5 12:32 NIHSS Score: 2 pm1 12:35 NIHSS Score: 2 ca1 MDM: 10:18 Patient medically screened. pm1 10:50 Data reviewed: vital signs. Data interpreted: Pulse oximetry: on room air is 100 %. pm1 Interpretation: normal. 11:09 Physician consultation: Neurologist James regarding regarding transfer, to [facility]. pm1 consult, patient's condition, and will see patient No CTA needed. 11:16 Physician consultation: Hospitalist Joycelyn regarding regarding transfer, to [address] patient's condition, and will see patient. 11:20 Counseling: I had a detailed discussion with the patient and/or guardian regarding: the pm1 historical points, exam findings, and any diagnostic results supporting the discharge/admit diagnosis, radiology results, the need to transfer to another facility, for higher level of care, [facility] does not immediately have the required specialist. 06/12 10:19 Order name: Basic Metabolic Panel; Complete Time: 11:36 06/12 10:19 Order name: CBC with Diff; Complete Time: 11:36 06/12 10:19 Order name: Protime (+inr); Complete Time: 11:36 06/12 10:19 Order name: Ptt, Activated; Complete Time: 11:36 06/12 10:19 Order name: CT Stroke Brain w/o Contrast; Complete Time: 10:50 06/12 10:51 Order name: Glucose, Ancillary Testing; Complete Time: 10:54 EDMS 06/12 10:19 Order name: Stroke CXR 1 View; Complete Time: 11:13 06/12 10:19 Order name: Accucheck; Complete Time: 10:41 06/12 10:19 Order name: Cardiac monitoring; Complete Time: 10:41 aa06/12 10:19 Order name: EKG - Nurse/Tech; Complete Time: 10:41 06/12 10:19 Order name: IV Saline Lock; Complete Time: 11:06/12 10:19 Order name: Labs collected and sent; Complete Time: 11:06/12 10:19 Order name: NPO; Complete Time: 10:06/12 10:19 Order name: O2 Per Protocol; Complete Time: 10:06/12 10:19 Order name: O2 Sat Monitoring; Complete Time: 10:41 06/12 10:19 Order name: Stroke Swallow Screen; Complete Time: 10:47 aa Administered Medications: 10:50 Drug: PlaVIX 75 mg {Note: PT home med stock given.} Route: PO; ca1 11:30 Follow up: Response: No adverse reaction ca1 11:12 Drug: NS 0.9% 500 ml Route: IV; Rate: bolus; Site: left upper arm; ca1 12:31 Follow up: Response: No adverse reaction; IV Status: Completed infusion; IV Intake: ca1 500ml 11:13 Drug: foLIC Acid 1 mg Route: IVPB; Site: left upper arm; ca1 12:31 Follow up: Response: No adverse reaction; IV Status: Completed infusion ca1 Point of Care Testing: Blood Glucose: 10:30 Blood Glucose: 111 mg/dL; ca1 Ranges: Critical Glucose Levels:Adult <50 mg/dl or >400 mg/dl <40 mg/dl or >180 mg/dl Disposition: 06/13 11:59 Co-signature as Attending Physician, Miguel Patterson MD I agree with the assessment and tan plan of care. Disposition: 06/12/20 11:21 Transfer ordered to [facility]. Diagnosis is Cerebral infarction. - Reason for transfer: Higher level of care. - Accepting physician is Joycelyn. - Condition is Stable. - Problem is new. - Symptoms have improved. NIH Stroke Scale - NIH Stroke Score Date: 06/12/2020 Time: 10:26 Total Score = 3 1a. Level of Consciousness (LOC) - 0(Alert) 1b. Level of Consciousness (LOC) (Year \T\ Age) - 0(Both) 1c. LOC Commands (Open \T\ Closes Eyes/Salvage Engineering Technician) - 0(Both) 2. Best Gaze (Lateral Gaze Paresis) - 0(Normal) 3. Visual Field Loss - 0(No visual loss) 4. Facial Palsy - 0(Normal) 5a. Left Arm: Motor (10-second hold) - 0(No drift) 5b. Right Arm: Motor (10-second hold) - 0(No drift) 6a. Left Leg: Motor (5-second hold - always test supine) - 0(No drift) 6b. Right Leg: Motor (5-second hold - always test supine) - 2(Drift, some effort against gravity) 7. Limb Ataxia (finger/nose \T\ heel/betancourt - test with eyes open) - 0(Absent) 8. Sensory Loss (pinprick arms/legs/face) - 1(Mild to moderate loss) 9. Best Language: Aphasia (description/naming/reading) - 0(No aphasia) 10. Dysarthria (speech clarity - read or repeat words) - 0(Normal) 11. Extinction and Inattention (visual/tactile/auditory/spatial/personal) - 0(No abnormality) Initials: pm1 NIH Stroke Scale - NIH Stroke Score Date: 06/12/2020 Time: 10:54 Total Score = 3 1a. Level of Consciousness (LOC) - 0(Alert) 1b. Level of Consciousness (LOC) (Year \T\ Age) - 0(Both) 1c. LOC Commands (Open \T\ Closes Eyes/Salvage Engineering Technician) - 0(Both) 2. Best Gaze (Lateral Gaze Paresis) - 0(Normal) 3. Visual Field Loss - 0(No visual loss) 4. Facial Palsy - 0(Normal) 5a. Left Arm: Motor (10-second hold) - 0(No drift) 5b. Right Arm: Motor (10-second hold) - 0(No drift) 6a. Left Leg: Motor (5-second hold - always test supine) - 0(No drift) 6b. Right Leg: Motor (5-second hold - always test supine) - 2(Drift, some effort against gravity) 7. Limb Ataxia (finger/nose \T\ heel/betancourt - test with eyes open) - 0(Absent) 8. Sensory Loss (pinprick arms/legs/face) - 1(Mild to moderate loss) 9. Best Language: Aphasia (description/naming/reading) - 0(No aphasia) 10. Dysarthria (speech clarity - read or repeat words) - 0(Normal) 11. Extinction and Inattention (visual/tactile/auditory/spatial/personal) - 0(No abnormality) Initials: aa5 NIH Stroke Scale - NIH Stroke Score Date: 06/12/2020 Time: 12:32 Total Score = 2 1a. Level of Consciousness (LOC) - 0(Alert) 1b. Level of Consciousness (LOC) (Year \T\ Age) - 0(Both) 1c. LOC Commands (Open \T\ Closes Eyes/Salvage Engineering Technician) - 0(Both) 2. Best Gaze (Lateral Gaze Paresis) - 0(Normal) 3. Visual Field Loss - 0(No visual loss) 4. Facial Palsy - 0(Normal) 5a. Left Arm: Motor (10-second hold) - 0(No drift) 5b. Right Arm: Motor (10-second hold) - 0(No drift) 6a. Left Leg: Motor (5-second hold - always test supine) - 0(No drift) 6b. Right Leg: Motor (5-second hold - always test supine) - 1(Drift) 7. Limb Ataxia (finger/nose \T\ heel/betancourt - test with eyes open) - 0(Absent) 8. Sensory Loss (pinprick arms/legs/face) - 1(Mild to moderate loss) 9. Best Language: Aphasia (description/naming/reading) - 0(No aphasia) 10. Dysarthria (speech clarity - read or repeat words) - 0(Normal) 11. Extinction and Inattention (visual/tactile/auditory/spatial/personal) - 0(No abnormality) Initials: pm1 NIH Stroke Scale - NIH Stroke Score Date: 06/12/2020 Time: 12:35 Total Score = 2 1a. Level of Consciousness (LOC) - 0(Alert) 1b. Level of Consciousness (LOC) (Year \T\ Age) - 0(Both) 1c. LOC Commands (Open \T\ Closes Eyes/Salvage Engineering Technician) - 0(Both) 2. Best Gaze (Lateral Gaze Paresis) - 0(Normal) 3. Visual Field Loss - 0(No visual loss) 4. Facial Palsy - 0(Normal) 5a. Left Arm: Motor (10-second hold) - 0(No drift) 5b. Right Arm: Motor (10-second hold) - 0(No drift) 6a. Left Leg: Motor (5-second hold - always test supine) - 1(Drift) 6b. Right Leg: Motor (5-second hold - always test supine) - 0(No drift) 7. Limb Ataxia (finger/nose \T\ heel/betancourt - test with eyes open) - 0(Absent) 8. Sensory Loss (pinprick arms/legs/face) - 1(Mild to moderate loss) 9. Best Language: Aphasia (description/naming/reading) - 0(No aphasia) 10. Dysarthria (speech clarity - read or repeat words) - 0(Normal) 11. Extinction and Inattention (visual/tactile/auditory/spatial/personal) - 0(No abnormality) Initials: ca1 Signatures: Dispatcher [employer] [facility] Miguel Patterson MD MD cha Calderon, Audri, RN RN aa5 Amanuel Oseguera, BALL ROLLING MACHINE OPERATOR BALL ROLLING MACHINE OPERATOR pm1 Marilyn Ellsworth RN RN ca1 Corrections: (The following items were deleted from the chart) 06/12 11:37 11:09 Physician consultation: Neurologist James pm1 pm1 12:10 10:24 Head Angio+[id number] ordered. [facility] 12:43 11:21 06/12/2020 11:21 Transfer ordered to [address] Diagnosis is Cerebral infarction. Reason for transfer: Higher level of care. Accepting physician is Joycelyn. Condition is Stable. Problem is new. Symptoms have improved. pm1
--- NOTE | 2020-06-12 11:22 | ER ---
Nurse's Notes [facility] Name: Nisha Carrillo Age: 89 yrs Sex: Female : 1930 Arrival Date: 06/12/2020 Time: 10:17 Bed 18 Private MD: Diagnosis: Cerebral infarction Presentation: 06/12 10:17 Chief complaint: Patient states: "I was up all night with nausea and vomiting and aa5 finally went to bed around 3 am and woke up at 5 am with my right leg feeling numb and could not walk this morning". Pt also reports chronic neck pain radiating to back. Pt was discharged from this hospital yesterday and diagnosed with shingles. Right leg weakness noted. Pt also states "when I woke up at 5 am the right side of my face felt weak", no facial droop noted at this time. Pt states she took ASA 81 mg and Plavix this morning. 10:17 Ebola Screen: Patient negative for fever greater than or equal to 101.5 degrees aa5 Fahrenheit, and additional compatible Ebola Virus Disease symptoms. Initial Sepsis Screen: Does the patient meet any 2 criteria? No. Patient's initial sepsis screen is negative. Does the patient have a suspected source of infection? No. Patient's initial sepsis screen is negative. Risk Assessment: Do you want to hurt yourself or someone else? Patient reports no desire to harm self or others. Onset of symptoms was May 2020. 10:17 Acuity: SERGIO 2 aa5 10:17 Method Of Arrival: EMS: [facility] aa5 10:17 Coronavirus screen: Client denies travel out of the [place] in the last 14 days. At this aa5 time, the client does not indicate any symptoms associated with coronavirus-19. 10:35 An acute neurological deficit is present. The charge nurse has been notified. The ca1 patients blood glucose was checked before arriving to the hospital and was found to be normal. Stroke Activation: Symtpom onset >3 hours and < 6 hours Physician: Stroke Attending; Name: ; Notified At: ; Arrived At: Physician: Chief Stroke Resident; Name: ; Notified At: ; Arrived At: Physician: Stroke Resident; Name: ; Notified At: ; Arrived At: Physician: ED Attending; Name: ; Notified At: ; Arrived At: Physician: ED Resident; Name: ; Notified At: ; Arrived At: Historical: - Allergies: 10:17 Codeine (nausea); aa5 - PMHx: 10:17 CHF; CVA; GERD; Hypertension; Hypothyroidism; Right sided weakness; aa5 - PSHx: 10:17 Knee surgery; neck; Bladder suspension; aa5 - Immunization history:: Adult Immunizations up to date. - Social history:: Smoking status: Patient denies any tobacco usage or history of. Screenin:42 Abuse screen: Denies threats or abuse. Denies injuries from another. Nutritional ca1 screening: No deficits noted. Tuberculosis screening: No symptoms or risk factors identified. Fall Risk Fall in past 12 months (25 points). Secondary diagnosis (15 points) CVA, IV access (20 points). Ambulatory Aid- Crutches/Cane/Walker (15 pts). Gait- Impaired (20 pts.). Total Ramos Fall Scale indicates High Risk Score (45 or more points). Fall prevention measures have been instituted. Side Rails Up X 2 Frequent Obs/Assessments Occuring As available patient and family educated on Fall Prevention Program and Strategies. 10:48 Patient has been NPO before screening. The patient is alert, able to follow commands. ca1 The patient does not exhibit slurred or garbled speech The patient is not exhibiting difficulty speaking. The patient does not exhibit difficulty understanding words. The patient is able to swallow own secretions with no drooling or need for suction. Patient tolerated one teaspoon of water. No drooling, immediate coughing, gurgling, or clearing of the throat was noted. The patient tolerated 90mL of water. No drooling, immediate coughing, gurgling, or clearing of the throat was noted. The patient passed the bedside swallow screening. Oral medications may be given as ordered. Contact Physician for further diet orders. Provider notified of bedside swallow screening results: Amanuel Oseguera FLUORESCENT LAMP REPLACER. Assessment: 10:17 Reassessment: To CT via stretcher with OLLIE Curry. jl7 10:17 General: Appears uncomfortable, Behavior is calm, cooperative. Pain: Complains of pain aa5 in neck Pain radiates to back Quality of pain is described as radiating, sharp. Neuro: Level of Consciousness is awake, alert, obeys commands, Oriented to person, place, time, situation, Online Merchandising Specialist are equal bilaterally Weakness in right leg(s) Speech is normal, Facial symmetry appears normal, Reports blurred vision that is pt's baseline numbness in right leg weakness in right leg. Cardiovascular: Heart tones S1 S2 present Rhythm is regular. Respiratory: Airway is patent Respiratory effort is even, unlabored, Respiratory pattern is regular, symmetrical. GI: Abdomen is round Abd is soft and non tender X 4 quads. Reports nausea, vomiting. : No signs and/or symptoms were reported regarding the genitourinary system. EENT: No signs and/or symptoms were reported regarding the EENT system. Derm: Skin is dry, Skin is normal, Skin temperature is warm Rash noted that is red, raised, on left upper arm. Musculoskeletal: Range of motion: intact in all extremities. 10:30 Reassessment: Pt back from CT via stretcher, accompanied by me. aa5 10:35 VAN Scoring: Arm Drift: Patients demonstrates NO arm weakness. Patient is VAN Negative. ca1 Visual Disturbance: No visual disturbance noted. Aphasia: No aphasia noted. Neglect: No neglect noted. 10:45 Patient has been NPO before screening. The patient is alert, and able to follow ca1 commands. The patient does not exhibit slurred or garbled speech. The patient is not exhibiting difficulty speaking. The patient does not exhibit difficulty understanding words. The patient is able to swallow own secretions with no drooling or need for suction. Patient tolerated one teaspoon of water. No drooling, immediate coughing, gurgling, or clearing of the throat was noted. The patient tolerated 90mL of water. No drooling, immediate coughing, gurgling, or clearing of the throat was noted. The patient passed the bedside swallow screening. Oral medications may be given as ordered. Contact Physician for further diet orders. Provider notified of bedside swallow screening results: Amanuel Oseguera NP. 11:29 Reassessment: Patient appears in no apparent distress at this time. Patient and/or ca1 family updated on plan of care and expected duration. Pain level reassessed. Patient is alert, oriented x 3, equal unlabored respirations, skin warm/dry/pink. 11:36 Reassessment: Called for report to OLLIE Mcdonough at [facility]. ca1 12:25 Reassessment: Patient appears in no apparent distress at this time. Patient and/or ca1 family updated on plan of care and expected duration. Pain level reassessed. Patient is alert, oriented x 3, equal unlabored respirations, skin warm/dry/pink. Pt able to lift R Leg up the bed a little bit now. Vital Signs: 10:30 BP 182 / 71; Pulse 62; Resp 18 S; Temp 98.4(O); Pulse Ox 100% on R/A; aa5 11:01 BP 155 / 59; Pulse 67; Resp 14 S; Pulse Ox 100% on R/A; ca1 12:02 BP 160 / 61; Pulse 65; Resp 14 S; Pulse Ox 100% on R/A; ca1 12:43 BP 162 / 65; Pulse 61; Resp 15 S; Pulse Ox 100% on R/A; ca1 NIH Stroke Scale Scores: 10:26 NIHSS Score: 3 pm1 10:54 NIHSS Score: 3 aa5 12:32 NIHSS Score: 2 pm1 12:35 NIHSS Score: 2 ca1 ED Course: 10:17 Patient arrived in ED. aa5 10:17 Arm band placed on Patient placed in an exam room, on a stretcher. aa5 10:18 Amanuel Oseguera NP is PHCP. pm1 10:18 Miguel Patterson MD is Attending Physician. pm1 10:26 Marilyn Ellsworth, OLLIE is Primary Nurse. ca1 10:30 CT Stroke Brain w/o Contrast In Process Unspecified. EDMS 10:35 Missed attempt(s): 20 gauge in right antecubital area. Bleeding controlled, band aid ca1 applied, catheter tip intact. 10:41 Triage completed. aa5 10:42 Patient has correct armband on for positive identification. Placed in gown. Bed in low ca1 position. Call light in reach. Side rails up X2. pipeliner on. Pulse ox on. NIBP on. Warm blanket given. 10:56 Initiated transfer with Chad Barahonaory to [facility] due to not having neurology. mt 10:59 Stroke CXR 1 View In Process Unspecified. EDMS 11:01 Amanuel Oseguera NP, gave report to Dr. Ramirez with [facility]. mt 11:10 Amanuel Oseguera NP, gave report to the hospitalist, Joycelyn, at [facility]. mt 11:11 Inserted Midline 20G, 10cm at the L brachial vein, using aseptic technique by romulo Ambrose RN. Good blood return flushes well. Pt tolerated well. 11:14 Chad Drew called back with administrative approval to [facility], pt will be mt going to room 2238. 11:29 No provider procedures requiring assistance completed. Patient transferred, IV remains ca1 in place. 11:30 Contacted EMS for transfer and gave an ETA for 2.5 hours. Notified EMS we would call mt another service. 11:35 Contacted [facility] for transfer. Was given an ETA of 1 hr. mt 12:35 [facility] arrived for transfer to [facility] at 1235. mt Administered Medications: 10:50 Drug: PlaVIX 75 mg {Note: PT home med stock given.} Route: PO; ca1 11:30 Follow up: Response: No adverse reaction ca1 11:12 Drug: NS 0.9% 500 ml Route: IV; Rate: bolus; Site: left upper arm; ca1 12:31 Follow up: Response: No adverse reaction; IV Status: Completed infusion; IV Intake: ca1 500ml 11:13 Drug: foLIC Acid 1 mg Route: IVPB; Site: left upper arm; ca1 12:31 Follow up: Response: No adverse reaction; IV Status: Completed infusion ca1 Point of Care Testing: Blood Glucose: 10:30 Blood Glucose: 111 mg/dL; ca1 Ranges: Intake: 12:31 IV: 500ml; Total: 500ml. ca1 Outcome: 11:21 ER care complete, transfer ordered by . pm1 12:43 Transferred by [facility] to [facility], Transfer form completed. ca1 X-rays sent w/ patient. 12:43 Condition: improved 12:43 Instructed on the need for transfer. 12:44 Patient left the ED. ca1 NIH Stroke Scale - NIH Stroke Score Date: 06/12/2020 Time: 10:26 Total Score = 3 1a. Level of Consciousness (LOC) - 0(Alert) 1b. Level of Consciousness (LOC) (Year \\T\\ Age) - 0(Both) 1c. LOC Commands (Open \\T\\ Closes Eyes/Building Performance Specialist) - 0(Both) 2. Best Gaze (Lateral Gaze Paresis) - 0(Normal) 3. Visual Field Loss - 0(No visual loss) 4. Facial Palsy - 0(Normal) 5a. Left Arm: Motor (10-second hold) - 0(No drift) 5b. Right Arm: Motor (10-second hold) - 0(No drift) 6a. Left Leg: Motor (5-second hold - always test supine) - 0(No drift) 6b. Right Leg: Motor (5-second hold - always test supine) - 2(Drift, some effort against gravity) 7. Limb Ataxia (finger/nose \\T\\ heel/betancourt - test with eyes open) - 0(Absent) 8. Sensory Loss (pinprick arms/legs/face) - 1(Mild to moderate loss) 9. Best Language: Aphasia (description/naming/reading) - 0(No aphasia) 10. Dysarthria (speech clarity - read or repeat words) - 0(Normal) 11. Extinction and Inattention (visual/tactile/auditory/spatial/personal) - 0(No abnormality) Initials: pm1 NIH Stroke Scale - NIH Stroke Score Date: 06/12/2020 Time: 10:54 Total Score = 3 1a. Level of Consciousness (LOC) - 0(Alert) 1b. Level of Consciousness (LOC) (Year \\T\\ Age) - 0(Both) 1c. LOC Commands (Open \\T\\ Closes Eyes/Building Performance Specialist) - 0(Both) 2. Best Gaze (Lateral Gaze Paresis) - 0(Normal) 3. Visual Field Loss - 0(No visual loss) 4. Facial Palsy - 0(Normal) 5a. Left Arm: Motor (10-second hold) - 0(No drift) 5b. Right Arm: Motor (10-second hold) - 0(No drift) 6a. Left Leg: Motor (5-second hold - always test supine) - 0(No drift) 6b. Right Leg: Motor (5-second hold - always test supine) - 2(Drift, some effort against gravity) 7. Limb Ataxia (finger/nose \\T\\ heel/betancourt - test with eyes open) - 0(Absent) 8. Sensory Loss (pinprick arms/legs/face) - 1(Mild to moderate loss) 9. Best Language: Aphasia (description/naming/reading) - 0(No aphasia) 10. Dysarthria (speech clarity - read or repeat words) - 0(Normal) 11. Extinction and Inattention (visual/tactile/auditory/spatial/personal) - 0(No abnormality) Initials: aa5 NIH Stroke Scale - NIH Stroke Score Date: 06/12/2020 Time: 12:32 Total Score = 2 1a. Level of Consciousness (LOC) - 0(Alert) 1b. Level of Consciousness (LOC) (Year \\T\\ Age) - 0(Both) 1c. LOC Commands (Open \\T\\ Closes Eyes/Building Performance Specialist) - 0(Both) 2. Best Gaze (Lateral Gaze Paresis) - 0(Normal) 3. Visual Field Loss - 0(No visual loss) 4. Facial Palsy - 0(Normal) 5a. Left Arm: Motor (10-second hold) - 0(No drift) 5b. Right Arm: Motor (10-second hold) - 0(No drift) 6a. Left Leg: Motor (5-second hold - always test supine) - 0(No drift) 6b. Right Leg: Motor (5-second hold - always test supine) - 1(Drift) 7. Limb Ataxia (finger/nose \\T\\ heel/betancourt - test with eyes open) - 0(Absent) 8. Sensory Loss (pinprick arms/legs/face) - 1(Mild to moderate loss) 9. Best Language: Aphasia (description/naming/reading) - 0(No aphasia) 10. Dysarthria (speech clarity - read or repeat words) - 0(Normal) 11. Extinction and Inattention (visual/tactile/auditory/spatial/personal) - 0(No abnormality) Initials: pm1 NIH Stroke Scale - NIH Stroke Score Date: 06/12/2020 Time: 12:35 Total Score = 2 1a. Level of Consciousness (LOC) - 0(Alert) 1b. Level of Consciousness (LOC) (Year \\T\\ Age) - 0(Both) 1c. LOC Commands (Open \\T\\ Closes Eyes/Building Performance Specialist) - 0(Both) 2. Best Gaze (Lateral Gaze Paresis) - 0(Normal) 3. Visual Field Loss - 0(No visual loss) 4. Facial Palsy - 0(Normal) 5a. Left Arm: Motor (10-second hold) - 0(No drift) 5b. Right Arm: Motor (10-second hold) - 0(No drift) 6a. Left Leg: Motor (5-second hold - always test supine) - 1(Drift) 6b. Right Leg: Motor (5-second hold - always test supine) - 0(No drift) 7. Limb Ataxia (finger/nose \\T\\ heel/betancourt - test with eyes open) - 0(Absent) 8. Sensory Loss (pinprick arms/legs/face) - 1(Mild to moderate loss) 9. Best Language: Aphasia (description/naming/reading) - 0(No aphasia) 10. Dysarthria (speech clarity - read or repeat words) - 0(Normal) 11. Extinction and Inattention (visual/tactile/auditory/spatial/personal) - 0(No abnormality) Initials: ca1 Signatures: Dispatcher [employer] EDMS Antoinette Carbajal RN RN aa5 Amanuel Oseguera, FLUORESCENT LAMP REPLACER FLUORESCENT LAMP REPLACER pm1 Caprice Pineda RN RN jl7 Olivia Quintanilla ut Marilyn Ellsworth RN RN ca1 Corrections: (The following items were deleted from the chart) 10:55 10:17 NIHSS Score: 3 aa5 aa5 10:56 10:17 Neuro: Level of Consciousness is awake, alert, obeys commands, Oriented aa5 to person, place, time, situation, Online Merchandising Specialist are equal bilaterally Weakness in right leg(s) Speech is normal, Facial symmetry appears normal, Reports blurred vision numbness in right leg weakness in right leg aa5 12:10 10:55 To radiology for Head Angio+CT.FRANCISCO. ca1 EDMS 13:36 11:30 Notified the Hospitalist of Contacted EMS for transfer and gave an ETA mt for 2.5 hours. Notified EMS we would call another service. mt 13:36 13:35 Contacted [facility] for transfer. Was given an ETA of 1 hr. mt mt
[2020-06-12 11:30] LABS: Protime INR 1.1
[2020-06-12 11:35] LABS: Potassium 3.6 mmol/L (3.5-5.1)
--- NOTE | 2020-06-14 10:47 | EKG ---
Test Date: 2020-06-12 Test Time: 10:42:50 Organizational Consultant: KYRIE MEASUREMENT RESULTS: Intervals: Rate: 65 DC: 166 QRSD: 108 QT: 414 QTc: 430 [place]: P: 46 DC: 166 QRS: -27 T: 32 INTERPRETIVE STATEMENTS: Normal sinus rhythm Minimal voltage criteria for LVH, may be normal variant Borderline ECG Compared to ECG 06/10/2020 10:54:16 Sinus bradycardia no longer present Electronically Signed On 06-14-20 10:43:57 CDT by Ebenezer Pritchett
== END 2020-06-12 12:43 | disposition short-term general hospital (02) ==
LOC: ER 10:08
DX: I63.9 Cerebral infarction, unspecified (principal); R29.703 NIHSS score 3; I10 Essential (primary) hypertension; Z88.5 Allergy status to narcotic agent
CPT/HCPCS: 93005; 85025; 80048; 36415; 85610; 82947; 85730; 70450; 71045; J7040; 96365; 99285